=== PATIENT | female | born 1960 | race Caucasian/White ===

== ENCOUNTER 2021-05-04 23:00 | Inpatient (IN) | payer MEDICARE, MEDICAID ==
[2021-05-04] MEDS ORDERED: Sodium Chloride 0.9% 10 ML Syringe FLUSH PRN (23:39)
[2021-05-04 23:46] LABS: CORONAVIRUS COVID-19 NAA NEGATIVE (NEGATIVE)
--- NOTE | 2021-05-04 23:46 | EDM.PDOC ---
ED HPI GENERAL MEDICAL PROBLEM - General Chief Complaint: Respiratory Problem Stated Complaint: [facility] Time Seen by Provider: 05/04/21 23:22 - History of Present Illness INITIAL COMMENTS - FREE TEXT/NARRATIVE: Patient arrived to ED by ambulance She is a limited historian due to altered mental status/confusion EMS reports pulse oximetry 68% on scene Patient reports worsening cough and dyspnea over approximately 3 days States she feels confused Denies chest pain Denies fever, nausea, vomiting Has history of COPD with baseline oxygen use at 4L/min [place] Past history per outpatient record 12/2017 includes: Medical - Anxiety - Arthritis - Asthma - Coronary artery disease - Chronic neck and back pain - Chronic pain of right elbow - COPD - Degenerative cervical spinal stenosis - 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 - Depression - Hypertension - Dyslipidemia - Peripheral edema - Peripheral vascular disease - Bilateral rotator cuff impingement syndrome Surgical - Breast lumpectomy - Elbow surgery - Hysterectomy - Inguinal herniorrhaphy - Neuroplasty with ulnar nerve transposition - Related Data Allergies Allergy/AdvReac Type Severity Reaction Status Date / Time aspirin Allergy Shaking Verified 05/05/21 08:47 erythromycin base Allergy Hives Verified 05/05/21 09:25 Penicillins Allergy Shaking Verified 05/05/21 08:47 Home Meds: Home Meds Hydrocodone/Acetaminophen [HYDROcodone-Acetaminophen 10-325 MG] 1 each PO Q6HR PRN 05/05/21 [History] Rosuvastatin [Crestor] 20 mg PO DAILY 05/05/21 [History] carisoprodoL [Carisoprodol] 350 mg PO BID PRN 05/05/21 [History] Social & Family History - Tobacco Use Tobacco Use Status *Q: Current Every Day Tobacco User Years of Tobacco use: 40 Packs/Tins Daily: 0.2 - Caffeine Use Caffeine Use: Reports: None - Recreational Drug Use Recreational Drug Use: No ED ROS GENERAL - Review of Systems Review Of Systems: See Below Free Text/Narrative/Comment: Limited due to mental status Constitutional - no fever Cardiovascular - no chest pain Respiratory - shortness of breath; cough Gastrointestinal - no abdominal pain; no nausea; no vomiting; no diarrhea Musculoskeletal - no myalgias ED EXAM, GENERAL - Physical Exam Exam: See Below Free Text/Narrative:: Constitutional - awake; alert; appears chronically ill; cachectic; mild respiratory distress Head - no facial swelling or weakness Eyes - extra ocular motion intact; conjunctiva normal; pupils equal and reactive to light ENT - no nasal deformity; no epistaxis; normal phonation; mucus membranes dry; Neck - no swelling Respiratory - mild respiratory effort; mild crackles left anterior and mid to lower posterior zone; moderately diminished breath sounds bilaterally; minimal wheezing; no stridor Cardiovascular - regular rhythm; tachycardia; S1; S2; grade 1/6 systolic murmur GI/Abdomen - normal bowel sounds; soft; no tenderness; no rebound; no guarding; no mass Musculoskeletal - grossly normal strength and motion; no swelling or deformity; severe kyphosis Skin - warm; dry Neurologic - normal speech; no weakness Psychiatric - normal mood and affect; memory limited; attention normal #1 Interpretation EKG Date: 05/05/21 Time: 00:26 Rhythm: NSR Rate (Beats/Min): 112 Coleridge: RAD-Right Coleridge Deviation P-Wave: Present QRS: Other (Poor R wave progression) ST-T: Other (Nonspecific repolarization abnormality) Comparison: NA - No Prior EKG Course - Vital Signs Text/Narrative:: . Considered etiologies included: Dyspnea, cough, bronchitis, COPD, pneumonia, pulmonary embolism, hypoxia, sepsis, hypercarbia, confusion, metabolic derangement, intracranial lesion Symptoms and examination were discussed Investigations were initiated Patient was treated initially with oxygen by mask at 6L/min, until subsequent occurrence of mild hypoxia Therapy was changed to BPAP with noticeable improvement in respiratory effort and overall distress Hypercarbia present on initial ABG had also improved Treatment for pneumonia was provided with ceftriaxone and azithromycin Patient had recurrence of mild to moderate hypoxia on BPAP Trial of Oxymask was ineffective at resolving hypoxia Treatment using NRB mask with NC subsequently yielded oximetry 99-100% Patient remained in ED pending bed availability at morning shift change 0710 Patient was referred to hospitalist service for further care She seen in ED by Dr Veliz for admission Last Recorded V/S: Last Vital Signs Temp 36.6 C 05/06/21 04:00 Pulse 115 H 05/06/21 02:01 Resp 23 H 05/06/21 04:00 BP 104/63 05/06/21 04:00 Pulse Ox 91 L 05/06/21 05:12 - Orders/Labs/Meds Orders: Medication Orders Acetaminophen (Acetaminophen 325 Mg Tab) 650 mg PO Q4H PRN PRN Reason: Pain (Mild 1-3)/fever Albuterol/Ipratropium (Albuterol/Ipratropium 3.0-0.5 Mg/3 Ml Neb Soln) 3 ml NEB Q4HRRT PRN PRN Reason: Wheezing Last Admin: 05/06/21 05:11 Dose: 3 ml Documented by: Admin: 05/05/21 21:56 Dose: 3 ml Documented by: Admin: 05/05/21 17:53 Dose: 3 ml Documented by: Admin: 05/05/21 13:59 Dose: 3 ml Documented by: Admin: 05/05/21 08:31 Dose: 3 ml Documented by: SHIVAM Docusate Sodium (Docusate Sodium 100 Mg Cap) 100 mg PO BID PRN PRN Reason: Constipation Heparin Sodium (Porcine) (Heparin Sodium 5,000 Units/Ml Vial) 5,000 units SUBCUT Q8H [facility] Last Admin: 05/05/21 17:14 Dose: Not Given Documented by: Admin: 05/05/21 12:37 Dose: Not Given Documented by: MARIZOL Ceftriaxone Sodium 1 gm/ (Sodium Chloride) 100 mls @ 200 mls/hr IV Q24H [facility] Last Admin: 05/05/21 21:10 Dose: 200 mls/hr Documented by: ANGIE Sodium Chloride (Normal Saline) 1,000 mls @ 40 mls/hr IV ASDIRECTED [facility] Last Infusion: 05/05/21 17:00 Dose: 40 mls/hr Documented by: Admin: 05/05/21 16:55 Dose: 45 mls/hr Documented by: MARIZOL Lorazepam (Lorazepam 2 Mg/Ml Sdv) 0.5 mg IVPUSH Q4H PRN PRN Reason: Agitation Last Admin: 05/05/21 17:18 Dose: 0.5 mg Documented by: DAVID Methylprednisolone Sodium Succinate (Methylprednisolone Sodium Succinate 125 Mg/2 Ml Sdv) 125 mg IVPUSH Q8H [facility] Last Admin: 05/06/21 00:42 Dose: 125 mg Documented by: Admin: 05/05/21 16:55 Dose: 125 mg Documented by: Admin: 05/05/21 08:29 Dose: 125 mg Documented by: GARRICK Morphine Sulfate (Morphine 2 Mg/Ml Syringe) 2 mg IVPUSH Q2H PRN PRN Reason: Pain (severe 7-10) Stop: 05/06/21 08:48 Last Admin: 05/05/21 21:18 Dose: 2 mg Documented by: ANGIE Nicotine (Nicotine 14 Mg/24 Hr Patch) 14 mg TRDERM DAILY [facility] Last Admin: 05/05/21 12:36 Dose: 14 mg Documented by: MARIZOL Ondansetron HCl (Ondansetron 4 Mg Tab.Dis) 4 mg PO Q4H PRN PRN Reason: nausea, able to take PO Oxycodone HCl (Oxycodone 5 Mg Tab) 5 mg PO Q4H PRN PRN Reason: Pain (moderate 4-6) Sodium Chloride (Sodium Chloride 0.9% 10 Ml Syringe) 10 ml FLUSH ONETIME PRN PRN Reason: Keep Vein Open Last Admin: 05/05/21 09:53 Dose: 10 ml Documented by: TOMI Labs: Laboratory Tests 05/04/21 05/05/21 05/05/21 Range/Units 23:01 00:01 00:01 WBC 14.23 H (3.98-10.04) K/mm3 RBC 4.13 (3.98-5.22) M/mm3 Hgb 12.4 (11.2-15.7) gm/dl Hct 42.5 (34.1-44.9) % MCV 102.9 H (79.4-94.8) fl MCH 30.0 (25.6-32.2) pg MCHC 29.2 L (32.2-35.5) g/dl RDW Std Deviation 48.2 H (36.4-46.3) fL Plt Count 221 (182-369) K/mm3 MPV 9.5 (9.4-12.3) fl Neut % (Auto) 89.3 H (34.0-71.1) % Lymph % (Auto) 3.9 L (19.3-51.7) % Pike % (Auto) 6.2 (4.7-12.5) % Eos % (Auto) 0.1 L (0.7-5.8) Baso % (Auto) 0.1 (0.1-1.2) % Neut # (Auto) 12.72 H (1.56-6.13) K/mm3 Lymph # (Auto) 0.55 L (1.18-3.74) K/mm3 Pike # (Auto) 0.88 H (0.24-0.36) K/mm3 Eos # (Auto) 0.01 L (0.04-0.36) K/mm3 Baso # (Auto) 0.01 (0.01-0.08) K/mm3 Manual Slide Review Abnormal smear Puncture Site ABG pH (7.35-7.45) ABG pCO2 (35.0-45.0) mmHg ABG pO2 (80.0-100.0) mmHg ABG HCO3 (22.0-26.0) meq/L ABG O2 Saturation (96.0-97.0) % ABG Base Excess (-2-2.0) Ricardo Test O2 Delivery Device Oxygen Flow Rate Blood Gas Comments Sodium 143 (136-145) mEq/L Potassium 4.3 (3.5-5.1) mEq/L Chloride 96 L (98-107) mEq/L Carbon Dioxide 44 H* (21-32) mEq/L Anion Gap 7.3 (5-15) BUN 11 (7-18) mg/dL Creatinine 0.3 L (0.55-1.02) mg/dL Est Cr Clr Drug Dosing TNP Estimated GFR (MDRD) > 60 (>60) mL/min BUN/Creatinine Ratio 36.7 H (14-18) Glucose 114 H (70-99) mg/dL Lactic Acid (0.4-2.0) mmol/L Calcium 8.9 (8.5-10.1) mg/dL Total Bilirubin 0.5 (0.2-1.0) mg/dL AST 14 L (15-37) U/L ALT 15 (14-59) U/L Alkaline Phosphatase 75 (46-116) U/L Troponin I < 0.017 (0.00-0.056) ng/mL Total Protein 7.4 (6.4-8.2) g/dl Albumin 2.8 L (3.4-5.0) g/dl Globulin 4.6 gm/dL Albumin/Globulin Ratio 0.6 L (1-2) Influenza Type A RNA Negative (NEGATIVE) Influenza Type B RNA Negative (NEGATIVE) SARS-CoV-2 RNA (ISAI) Negative (NEGATIVE) 05/05/21 05/05/21 05/05/21 Range/Units 00:01 00:17 03:18 WBC (3.98-10.04) K/mm3 RBC (3.98-5.22) M/mm3 Hgb (11.2-15.7) gm/dl Hct (34.1-44.9) % MCV (79.4-94.8) fl MCH (25.6-32.2) pg MCHC (32.2-35.5) g/dl RDW Std Deviation (36.4-46.3) fL Plt Count (182-369) K/mm3 MPV (9.4-12.3) fl Neut % (Auto) (34.0-71.1) % Lymph % (Auto) (19.3-51.7) % Pike % (Auto) (4.7-12.5) % Eos % (Auto) (0.7-5.8) Baso % (Auto) (0.1-1.2) % Neut # (Auto) (1.56-6.13) K/mm3 Lymph # (Auto) (1.18-3.74) K/mm3 Pike # (Auto) (0.24-0.36) K/mm3 Eos # (Auto) (0.04-0.36) K/mm3 Baso # (Auto) (0.01-0.08) K/mm3 Manual Slide Review Puncture Site Lt radial Lt radial ABG pH 7.38 7.41 (7.35-7.45) ABG pCO2 82.7 H* 76.2 H* (35.0-45.0) mmHg ABG pO2 61.0 L 41.0 L (80.0-100.0) mmHg ABG HCO3 48.3 H 46.8 H (22.0-26.0) meq/L ABG O2 Saturation 92.3 L 77.7 L (96.0-97.0) % ABG Base Excess 19.2 H 18.5 H (-2-2.0) Ricardo Test Positive O2 Delivery Device Simple mask Bipap Oxygen Flow Rate 5.0 15.0 Blood Gas Comments 10/5 Sodium (136-145) mEq/L Potassium (3.5-5.1) mEq/L Chloride (98-107) mEq/L Carbon Dioxide (21-32) mEq/L Anion Gap (5-15) BUN (7-18) mg/dL Creatinine (0.55-1.02) mg/dL Est Cr Clr Drug Dosing Estimated GFR (MDRD) (>60) mL/min BUN/Creatinine Ratio (14-18) Glucose (70-99) mg/dL Lactic Acid 1.2 (0.4-2.0) mmol/L Calcium (8.5-10.1) mg/dL Total Bilirubin (0.2-1.0) mg/dL AST (15-37) U/L ALT (14-59) U/L Alkaline Phosphatase (46-116) U/L Troponin I (0.00-0.056) ng/mL Total Protein (6.4-8.2) g/dl Albumin (3.4-5.0) g/dl Globulin gm/dL Albumin/Globulin Ratio (1-2) Influenza Type A RNA (NEGATIVE) Influenza Type B RNA (NEGATIVE) SARS-CoV-2 RNA (ISAI) (NEGATIVE) Meds: Medications Generic Name Dose Route Start Last Admin Trade Name Freq PRN Reason Stop Dose Admin Acetaminophen 650 mg 05/05/21 08:45 Acetaminophen 325 Mg Tab PO Q4H PRN Pain (Mild 1-3)/fever Albuterol/Ipratropium 3 ml 05/05/21 08:16 05/06/21 05:11 Albuterol/Ipratropium 3.0-0.5 Mg/3 Ml Neb Soln NEB 3 ml Q4HRRT PRN Administration Wheezing Docusate Sodium 100 mg 05/05/21 08:45 Docusate Sodium 100 Mg Cap PO BID PRN Constipation Heparin Sodium (Porcine) 5,000 units 05/05/21 08:45 05/05/21 17:14 Heparin Sodium 5,000 Units/Ml Vial SUBCUT Not Given Q8H OBIN[facility] Ceftriaxone Sodium 1 gm/ 100 mls @ 200 mls/hr 05/05/21 21:00 05/05/21 21:10 Sodium Chloride IV 200 mls/hr Q24H OBINNA Administration Sodium Chloride 1,000 mls @ 40 mls/hr 05/05/21 16:30 05/05/21 17:00 Normal Saline IV 40 mls/hr ASDIRECTED [facility] Infusion Lorazepam 0.5 mg 05/05/21 17:10 05/05/21 17:18 Lorazepam 2 Mg/Ml Sdv IVPUSH 0.5 mg Q4H PRN Administration Agitation Methylprednisolone Sodium Succinate 125 mg 05/05/21 08:15 05/06/21 00:42 Methylprednisolone Sodium Succinate 125 Mg/2 Ml Sdv IVPUSH 125 mg Q8H [facility] Administration Morphine Sulfate 2 mg 05/05/21 08:45 05/05/21 21:18 Morphine 2 Mg/Ml Syringe IVPUSH 05/06/21 08:48 2 mg Q2H PRN Administration Pain (severe 7-10) Nicotine 14 mg 05/05/21 09:00 05/05/21 12:36 Nicotine 14 Mg/24 Hr Patch TRDERM 14 mg DAILY [facility] Administration Ondansetron HCl 4 mg 05/05/21 08:45 Ondansetron 4 Mg Tab.Dis PO Q4H PRN nausea, able to take PO Oxycodone HCl 5 mg 05/05/21 08:45 Oxycodone 5 Mg Tab PO Q4H PRN Pain (moderate 4-6) Sodium Chloride 10 ml 05/05/21 08:56 05/05/21 09:53 Sodium Chloride 0.9% 10 Ml Syringe FLUSH 10 ml ONETIME PRN Administration Keep Vein Open Discontinued Medications Generic Name Dose Route Start Last Admin Trade Name Freq PRN Reason Stop Dose Admin Albuterol/Ipratropium 3 ml 05/05/21 03:30 05/05/21 03:44 Albuterol/Ipratropium 3.0-0.5 Mg/3 Ml Neb Soln NEB 05/05/21 03:31 3 ml ONETIME ONE Administration Ceftriaxone Sodium 1 gm/ 100 mls @ 200 mls/hr 05/05/21 01:04 05/05/21 01:10 Sodium Chloride IV 05/05/21 01:33 200 mls/hr ONETIME ONE Administration Azithromycin 500 mg/ Sodium 250 mls @ 250 mls/hr 05/05/21 03:32 05/05/21 03:41 Chloride IV 05/05/21 04:31 250 mls/hr ONETIME ONE Administration Sodium Chloride 1,000 mls @ 150 mls/hr 05/05/21 05:15 05/05/21 05:22 Normal Saline IV 150 mls/hr ASDIRECTED OBINNA Administration Methylprednisolone Sodium 250.56 mls @ 250.56 mls/hr 05/05/21 06:45 05/05/21 07:55 Succinate 70 mg/ Sodium IV 05/05/21 06:46 Not Given Chloride ONETIME ONE Azithromycin 500 mg/ Sodium 250 mls @ 250 mls/hr 05/06/21 21:00 Chloride IV Q24H OBINNA Sodium Chloride 45 mls @ 40 mls/hr 05/05/21 09:00 05/05/21 09:53 Normal Saline IV 40 mls/hr ASDIRECTED OBINNA Administration Ceftriaxone Sodium 1 gm/ 100 mls @ 200 mls/hr 05/05/21 21:00 Sodium Chloride IV Q24H OB[facility]NA Iopamidol 100 ml 05/05/21 08:56 05/05/21 09:53 Iopamidol 755 Mg/Ml 100 Ml Bottle IVPUSH 05/05/21 08:57 100 ml ONETIME ONE Administration Sodium Chloride 10 ml 05/04/21 23:39 05/04/21 23:43 Sodium Chloride 0.9% 10 Ml Syringe FLUSH 10 ml ASDIRECTED PRN Administration Keep Vein Open - Radiology Interpretation Free Text/Narrative:: XR chest, AP portable, interpreted by specification writer: Mild to moderate left pleural effusion, left perihilar and right basilar patchy infiltrate Departure - Departure Time of Disposition: 08:00 Disposition: Admitted As Inpatient 65 Clinical Impression: Acute dyspnea, COPD (chronic obstructive pulmonary disease), Hypoxia, Pleural effusion on left, Hypercarbia - Discharge Information Sepsis Event Note (ED) - Evaluation Sepsis Screening Result: No Definite Risk
[2021-05-05] MEDS ORDERED: cefTRIAXone 1 GM in Sodium Chloride 0.9% 100 ML IV ONE (01:04)
[2021-05-05] MEDS ORDERED: Albuterol/Ipratropium 3.0-0.5 MG/3 ML Neb Soln NEB ONE (03:30)
[2021-05-05] MEDS ORDERED: Azithromycin 500 MG in Sodium Chloride 0.9% 250 ML IV ONE (03:32)
[2021-05-05] MEDS ORDERED: Sodium Chloride 0.9% 1,000 ML IV SCH (05:15)
[2021-05-05] MEDS ORDERED: METHYLPREDNISOLONE SOD SUCC IV ONE (06:45)
[2021-05-05] MEDS ORDERED: SODIUM CHLORIDE 0.9% IV ONE (06:45)
--- NOTE | 2021-05-05 08:01 | CR ---
Chest: Portable view of the chest was obtained. Comparison: Prior chest x-ray of 10/26/11. Left-sided pleural effusion is seen. Parenchymal density also noted within the left base. Mild interstitial change is seen within the right lung base. Heart size does not appear to be definitely enlarged. Upper mediastinum is normal. Bony structures show nothing acute. Impression: 1. Small left-sided pleural effusion with increased parenchymal density within the left lung base. Please correlate if patient has any infectious symptoms. Findings could otherwise represent asymmetric pulmonary vascular congestion. 2. Mild interstitial change within the right lung base with similar differential. Diagnostic code #3
[2021-05-05] MEDS: methylPREDNISolone Sodium Succinate 125 MG/2 ML SDV IVPUSH SCH ×2 (08:29→16:55)
[2021-05-05] MEDS: Albuterol/Ipratropium 3.0-0.5 MG/3 ML Neb Soln NEB PRN ×4 (08:31→21:56)
[2021-05-05] MEDS ORDERED: Morphine 2 MG/ML SYRINGE IVPUSH PRN (08:45)
[2021-05-05] MEDS ORDERED: oxyCODONE 5 MG Tab PO PRN (08:45)
[2021-05-05] MEDS ORDERED: Ondansetron 4 MG Tab.DIS PO PRN (08:45)
[2021-05-05] MEDS ORDERED: Acetaminophen 325 MG Tab PO PRN (08:45)
[2021-05-05] MEDS ORDERED: Docusate Sodium 100 MG Cap PO PRN (08:45)
--- NOTE | 2021-05-05 08:54 | PCM.HP.2 ---
H&P History of Present Illness - General Date of Service: 05/05/21 Admit Problem/Dx: Admission Diagnosis/Problem Admission Diagnosis/Problem COPD, Severe chronic obstructive pulmonary disease Source of Information: Patient, Old Records History Limitations: Reports: No Limitations - History of Present Illness Initial Comments - Free Text/Narative: The patient is a 61-year-old lady who had presented to the emergency department with confusion and according to the patient inability to move. The patient was evaluated in the ER yesterday at 2300. The patient had been retained in the emergency department due to bed availability both here and [facility]. The patient was found to be severely hypoxic and had been placed on BiPAP. The patient herself had denied any increasing shortness of breath although once her oxygen levels had been stabilized her confusion had abated somewhat. The patient does have a history of recent tobacco use along with severe COPD. The patient also has been taking medication for pain. The patient has a history of chronic neck and back pain as well as pain in her hips and knees. She has been taking narcotic pain medications. The patient has denied any fever or chills. She has had no cough. The patient does have some shortness of breath associated with hypoxia. Chest x-ray obtained through the emergency department shows that she has in addition to severe COPD small left-sided pleural effusion. The patient also has had no specific aggravating or relieving factors. The patient has not been hospitalized in the past for this. She is currently using oxygen at home at 4 L/min. Onset of Symptoms: Reports: Unknown/Unsure Duration of Symptoms: Reports: Chronic, Getting Worse Location: Reports: Generalized Quality: Reports: Ache, Stabbing Severity: Moderate Improves with: Reports: Medication, Rest Worsens with: Reports: Movement Associated Symptoms: Reports: Confusion - Related Data Allergies/Adverse Reactions: Allergies Allergy/AdvReac Type Severity Reaction Status Date / Time aspirin Allergy Shaking Verified 05/05/21 08:47 erythromycin base Allergy Hives Verified 05/05/21 09:25 Penicillins Allergy Shaking Verified 05/05/21 08:47 Home Medications: Home Meds Hydrocodone/Acetaminophen [HYDROcodone-Acetaminophen 10-325 MG] 1 each PO Q6HR PRN 05/05/21 [History] Rosuvastatin [Crestor] 20 mg PO DAILY 05/05/21 [History] carisoprodoL [Carisoprodol] 350 mg PO BID PRN 05/05/21 [History] Past Medical History HEENT History: Reports: None Cardiovascular History: Reports: Hypertension Respiratory History: Reports: COPD Gastrointestinal History: Reports: None Genitourinary History: Reports: None Musculoskeletal History: Reports: Arthritis, Back Pain, Chronic, Neck Pain, Chronic Neurological History: Reports: Neuropathy, Peripheral Psychiatric History: Reports: None Endocrine/Metabolic History: Reports: None Hematologic History: Reports: None Immunologic History: Reports: None Oncologic (Cancer) History: Reports: Breast Dermatologic History: Reports: None - Infectious Disease History Infectious Disease History: Reports: None Social & Family History - Tobacco Use Tobacco Use Status *Q: Current Every Day Tobacco User Years of Tobacco use: 40 Packs/Tins Daily: 0.2 - Caffeine Use Caffeine Use: Reports: None - Recreational Drug Use Recreational Drug Use: No - Living Situation & Occupation Living situation: Reports: , with Spouse, with Family Occupation: Other H&P Review of Systems - Review of Systems: Review Of Systems: See Below General: Reports: Malaise, Weakness, Weight Loss HEENT: Reports: No Symptoms Pulmonary: Reports: Shortness of Breath, Wheezing. Denies: Sputum, Hemoptysis Cardiovascular: Reports: No Symptoms Gastrointestinal: Reports: No Symptoms Genitourinary: Reports: No Symptoms Musculoskeletal: Reports: Neck Pain, Back Pain Skin: Reports: No Symptoms Psychiatric: Reports: No Symptoms Neurological: Reports: Confusion Hematologic/Lymphatic: Reports: No Symptoms Immunologic: Reports: No Symptoms Exam - Exam Exam: See Below - Vital Signs Vital Signs: Last Vital Signs Temp 37.0 C 05/04/21 23:03 Pulse 112 H 05/04/21 23:03 Resp 24 H 05/04/21 23:03 BP 125/73 05/04/21 23:03 Pulse Ox 94 L 05/05/21 08:37 Weight: 36.287 kg - Exam Quality Assessment: Supplemental Oxygen, DVT Prophylaxis General: Alert, Oriented, Cooperative, Moderate Distress, Other (Cachectic, appears older than stated age.) HEENT: Conjunctiva Clear, EACs Clear, Hearing Intact, PERRLA. No: Mucosa Moist & [place] (Dry, poor oral hygiene) Neck: Supple, Trachea Midline Lungs: Decreased Breath Sounds, Crackles (Scattered), Other (Hyperexpanded, decreased breath sounds left lower lobe, stiff thoracic cage) Cardiovascular: Regular Rate, Regular Rhythm GI/Abdominal Exam: Normal Bowel Sounds, Soft, No Distention (Female) Exam: Deferred Rectal (Female) Exam: Deferred Back Exam: Full Range of Motion. No: Normal Inspection (Kyphosis) Extremities: Normal Inspection, Normal Range of Motion, No Pedal Edema Skin: Warm, Dry, Intact Neurological: Cranial Nerves Intact, Normal Speech, Normal Tone Psychiatric: Alert, Normal Affect, Anxious - Patient Data Lab Results Last 24 hrs: Laboratory Results - last 24 hr 05/04/21 05/05/21 05/05/21 Range/Units 23:01 00:01 00:01 WBC 14.23 H (3.98-10.04) K/mm3 RBC 4.13 (3.98-5.22) M/mm3 Hgb 12.4 (11.2-15.7) gm/dl Hct 42.5 (34.1-44.9) % MCV 102.9 H (79.4-94.8) fl MCH 30.0 (25.6-32.2) pg MCHC 29.2 L (32.2-35.5) g/dl RDW Std Deviation 48.2 H (36.4-46.3) fL Plt Count 221 (182-369) K/mm3 MPV 9.5 (9.4-12.3) fl Neut % (Auto) 89.3 H (34.0-71.1) % Lymph % (Auto) 3.9 L (19.3-51.7) % [place] % (Auto) 6.2 (4.7-12.5) % Eos % (Auto) 0.1 L (0.7-5.8) Baso % (Auto) 0.1 (0.1-1.2) % Neut # (Auto) 12.72 H (1.56-6.13) K/mm3 Lymph # (Auto) 0.55 L (1.18-3.74) K/mm3 [place] # (Auto) 0.88 H (0.24-0.36) K/mm3 Eos # (Auto) 0.01 L (0.04-0.36) K/mm3 Baso # (Auto) 0.01 (0.01-0.08) K/mm3 Manual Slide Review Abnormal smear Puncture Site ABG pH (7.35-7.45) ABG pCO2 (35.0-45.0) mmHg ABG pO2 (80.0-100.0) mmHg ABG HCO3 (22.0-26.0) meq/L ABG O2 Saturation (96.0-97.0) % ABG Base Excess (-2-2.0) Ricardo Test O2 Delivery Device Oxygen Flow Rate Blood Gas Comments Sodium 143 (136-145) mEq/L Potassium 4.3 (3.5-5.1) mEq/L Chloride 96 L (98-107) mEq/L Carbon Dioxide 44 H* (21-32) mEq/L Anion Gap 7.3 (5-15) BUN 11 (7-18) mg/dL Creatinine 0.3 L (0.55-1.02) mg/dL Est Cr Clr Drug Dosing TNP Estimated GFR (MDRD) > 60 (>60) mL/min BUN/Creatinine Ratio 36.7 H (14-18) Glucose 114 H (70-99) mg/dL Lactic Acid (0.4-2.0) mmol/L Calcium 8.9 (8.5-10.1) mg/dL Total Bilirubin 0.5 (0.2-1.0) mg/dL AST 14 L (15-37) U/L ALT 15 (14-59) U/L Alkaline Phosphatase 75 (46-116) U/L Troponin I < 0.017 (0.00-0.056) ng/mL Total Protein 7.4 (6.4-8.2) g/dl Albumin 2.8 L (3.4-5.0) g/dl Globulin 4.6 gm/dL Albumin/Globulin Ratio 0.6 L (1-2) Influenza Type A RNA Negative (NEGATIVE) Influenza Type B RNA Negative (NEGATIVE) SARS-CoV-2 RNA (ISAI) Negative (NEGATIVE) 05/05/21 05/05/21 05/05/21 Range/Units 00:01 00:17 03:18 WBC (3.98-10.04) K/mm3 RBC (3.98-5.22) M/mm3 Hgb (11.2-15.7) gm/dl Hct (34.1-44.9) % MCV (79.4-94.8) fl MCH (25.6-32.2) pg MCHC (32.2-35.5) g/dl RDW Std Deviation (36.4-46.3) fL Plt Count (182-369) K/mm3 MPV (9.4-12.3) fl Neut % (Auto) (34.0-71.1) % Lymph % (Auto) (19.3-51.7) % [place] % (Auto) (4.7-12.5) % Eos % (Auto) (0.7-5.8) Baso % (Auto) (0.1-1.2) % Neut # (Auto) (1.56-6.13) K/mm3 Lymph # (Auto) (1.18-3.74) K/mm3 [place] # (Auto) (0.24-0.36) K/mm3 Eos # (Auto) (0.04-0.36) K/mm3 Baso # (Auto) (0.01-0.08) K/mm3 Manual Slide Review Puncture Site Lt radial Lt radial ABG pH 7.38 7.41 (7.35-7.45) ABG pCO2 82.7 H* 76.2 H* (35.0-45.0) mmHg ABG pO2 61.0 L 41.0 L (80.0-100.0) mmHg ABG HCO3 48.3 H 46.8 H (22.0-26.0) meq/L ABG O2 Saturation 92.3 L 77.7 L (96.0-97.0) % ABG Base Excess 19.2 H 18.5 H (-2-2.0) Ricardo Test Positive O2 Delivery Device Simple mask Bipap Oxygen Flow Rate 5.0 15.0 Blood Gas Comments 10/5 Sodium (136-145) mEq/L Potassium (3.5-5.1) mEq/L Chloride (98-107) mEq/L Carbon Dioxide (21-32) mEq/L Anion Gap (5-15) BUN (7-18) mg/dL Creatinine (0.55-1.02) mg/dL Est Cr Clr Drug Dosing Estimated GFR (MDRD) (>60) mL/min BUN/Creatinine Ratio (14-18) Glucose (70-99) mg/dL Lactic Acid 1.2 (0.4-2.0) mmol/L Calcium (8.5-10.1) mg/dL Total Bilirubin (0.2-1.0) mg/dL AST (15-37) U/L ALT (14-59) U/L Alkaline Phosphatase (46-116) U/L Troponin I (0.00-0.056) ng/mL Total Protein (6.4-8.2) g/dl Albumin (3.4-5.0) g/dl Globulin gm/dL Albumin/Globulin Ratio (1-2) Influenza Type A RNA (NEGATIVE) Influenza Type B RNA (NEGATIVE) SARS-CoV-2 RNA (ISAI) (NEGATIVE) Result Diagrams: 05/05/21 00:01 05/05/21 00:01 Sepsis Event Note - Evaluation Sepsis Screening Result: No Definite Risk - Focused Exam Vital Signs: Vital Signs Temp Pulse Resp BP Pulse Ox Pulse Ox 05/05/21 08:37 94 L 05/05/21 08:17 91 L 05/04/21 23:03 37.0 C 112 H 24 H 125/73 91 L *Q Meaningful Use (ADM) - VTE *Q VTE Mechanical Contraindications *Q: At Risk for Falls - Problem List (1) Acute and chronic respiratory failure SNOMED Code(s): 80948900 ICD Code: J96.20 - ACUTE AND CHR RESP FAILURE, UNSP W HYPOXIA OR HYPERCAPNIA Status: Acute Priority: High Current Visit: Yes Qualifiers: Respiratory failure complication: hypoxia and hypercapnia Qualified Code(s): J96.21 - Acute and chronic respiratory failure with hypoxia; J96.22 - Acute and chronic respiratory failure with hypercapnia (2) COPD with exacerbation SNOMED Code(s): 038514609 ICD Code: J44.1 - CHRONIC OBSTRUCTIVE PULMONARY DISEASE W (ACUTE) EXACERBATION Status: Chronic Priority: High Current Visit: Yes (3) Hypercapnia SNOMED Code(s): 68767288 ICD Code: R06.89 - OTHER ABNORMALITIES OF BREATHING Status: Chronic Priority: High Current Visit: Yes (4) Hypoxemia SNOMED Code(s): 995096324 ICD Code: R09.02 - HYPOXEMIA Status: Chronic Priority: High Current Visit: Yes (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 SNOMED Code(s): 010139445 ICD Code: J44.9 - CHRONIC OBSTRUCTIVE PULMONARY DISEASE, UNSPECIFIED; R64 - CACHEXIA Status: Chronic Priority: High Current Visit: Yes (6) Severe protein-calorie malnutrition SNOMED Code(s): 982422923, 304196905, 481389177 ICD Code: E43 - UNSPECIFIED SEVERE PROTEIN-CALORIE MALNUTRITION Status: Chronic Priority: High Current Visit: Yes (7) Tobacco dependence SNOMED Code(s): 50939806 ICD Code: F17.200 - NICOTINE DEPENDENCE, UNSPECIFIED, UNCOMPLICATED Status: Chronic Priority: High Current Visit: Yes Problem List Initiated/Reviewed/Updated: Yes Orders Last 24hrs: Active Orders 24 hr Category Date Time Status Admission Status [Patient Status] [ADT] Routine ADT 05/05/21 08:15 Active Cardiac Monitoring [RC] CONTINUOUS Care 05/05/21 08:46 Ordered Notify Provider Consults [RC] ASDIRECTED Care 05/05/21 08:51 Ordered Oxygen Therapy [RC] PRN Care 05/05/21 08:45 Ordered Peripheral IV Care [RC] . DIRECTED Care 05/04/21 23:40 Active Pulse Oximetry [RC] CONTINUOUS Care 05/05/21 08:46 Ordered RT Aerosol Therapy [RC] ASDIRECTED Care 05/05/21 03:30 Active RT Aerosol Therapy [RC] ASDIRECTED Care 05/05/21 08:17 Active RT BiPAP/CPAP [RC] ASDIRECTED Care 05/05/21 01:09 Active Up With Assistance [RC] ASDIRECTED Care 05/05/21 08:45 Ordered VTE/DVT Education [RC] PER UNIT ROUTINE Care 05/05/21 08:45 Ordered Vital Signs [RC] Q4H Care 05/05/21 08:45 Ordered Consult to Agriculture Professor [CONS] Routine Cons 05/05/21 08:45 Ordered Consult to Physician [CONS] Routine Cons 05/05/21 08:45 Ordered OT Evaluation and Treatment [CONS] Routine Cons 05/05/21 08:45 Ordered PT Evaluation and Treatment [CONS] Routine Cons 05/05/21 08:45 Ordered Regular Diet [DIET] Diet 05/05/21 Lunch Ordered Ang Chest [CT] Routine Exams 05/05/21 08:45 Ordered Chest 1V Frontal [CR] Stat Exams 05/04/21 23:39 Taken BLOOD CULTURE [MREF] Stat Lab 05/04/21 23:40 Received BLOOD CULTURE [MREF] Stat Lab 05/04/21 23:40 Received CBC WITH AUTO DIFF [HEME] AM Lab 05/06/21 05:11 Ordered COMPREHENSIVE METABOLIC PN,CMP [CHEM] AM Lab 05/06/21 05:11 Ordered MAGNESIUM [CHEM] AM Lab 05/06/21 05:11 Ordered PHOSPHORUS [CHEM] AM Lab 05/06/21 05:11 Ordered Acetaminophen [TylenoL] Med 05/05/21 08:45 Ordered 650 mg PO Q4H PRN Albuterol/Ipratropium [DuoNeb 3.0-0.5 MG/3 ML] Med 05/05/21 08:16 Active 3 ml NEB Q4HRRT PRN Azithromycin [Zithromax] 500 mg Med 05/06/21 08:45 Ordered Sodium Chloride 0.9% [Normal Saline (AdvBag)] 250 ml IV Q24H Docusate Sodium [Colace] Med 05/05/21 08:45 Ordered 100 mg PO BID PRN Heparin Sodium Med 05/05/21 08:45 Ordered 5,000 units SUBCUT Q8H Morphine Med 05/05/21 08:45 Ordered 2 mg IVPUSH Q2H PRN Nicotine [Habitrol] Med 05/05/21 09:00 Ordered 14 mg TRDERM DAILY Ondansetron [Zofran ODT] Med 05/05/21 08:45 Ordered 4 mg PO Q4H PRN Sodium Chloride 0.9% [Normal Saline] 1,000 ml Med 05/05/21 05:15 Active IV ASDIRECTED Sodium Chloride 0.9% [Saline Flush] Med 05/04/21 23:39 Active 10 ml FLUSH ASDIRECTED PRN methylPREDNISolone Sod Succ [Solu-MEDROL] Med 05/05/21 08:15 Active 125 mg IVPUSH Q8H oxyCODONE Med 05/05/21 08:45 Ordered 5 mg PO Q4H PRN Blood Culture x2 Reflex Set [OM.PC] Stat Oth 05/04/21 23:38 Ordered Peripheral IV Insertion Adult [OM.PC] Stat Oth 05/04/21 23:39 Ordered VTE Mechanical Contraindications [AST] Per Unit Routine Oth 05/05/21 08:45 Ordered Resuscitation Status Routine Resus Stat 05/05/21 08:45 Ordered EKG 12 Lead [EK] Stat Ther 05/04/21 23:38 Ordered Medication Orders Albuterol/Ipratropium (Albuterol/Ipratropium 3.0-0.5 Mg/3 Ml Neb Soln) 3 ml NEB Q4HRRT PRN PRN Reason: Wheezing Last Admin: 05/05/21 08:31 Dose: 3 ml Documented by: [email or web address] Sodium Chloride (Normal Saline) 1,000 mls @ 150 mls/hr IV ASDIRECTED OBINNA Last Admin: 05/05/21 05:22 Dose: 150 mls/hr Documented by: [facility] Methylprednisolone Sodium Succinate (Methylprednisolone Sodium Succinate 125 Mg/2 Ml Sdv) 125 mg IVPUSH Q8H COUNT INCLUDES THE [facility] Last Admin: 05/05/21 08:29 Dose: 125 mg Documented by: [id number] Sodium Chloride (Sodium Chloride 0.9% 10 Ml Syringe) 10 ml FLUSH ASDIRECTED PRN PRN Reason: Keep Vein Open Last Admin: 05/04/21 23:43 Dose: 10 ml Documented by: [facility] Assessment/Plan Comment:: The patient is a 61-year-old lady who has been admitted to the intensive care unit as an inpatient with acute on chronic hypoxic respiratory failure. The patient does have a history of COPD and she will be treated for exacerbation with Rocephin 1 g IV every 24 hours along with Solu-Medrol 120 mg every 8 hours. The patient also will be placed on BiPAP as necessary and oxygen support to help keep her saturations around 92%. Because of the patient's pulmonary cachexia I have ordered a dietary consult as she is also severely protein malnourished. The patient's recorded weight is 36.2 kg. The patient will have DVT prophylaxis with the use of heparin 5000 units subcu every 8 hours. I have also ordered the patient to have a regular diet as tolerated. She will be kept on telemetry and continuous pulse oximetry. I have also ordered a nicotine patch 14 mg daily for the patient. I have advised the patient of my concern with regards to intubation and that if this happened likely she would be transferred to tertiary care center. For now we will continue with DuoNeb treatments every 4 hours as needed for shortness of breath or wheezing every 4 hours as per RT or as needed. I had discussed the case with surgeon on-call who feels that the pleural effusion may not be appropriate to aspirate here. The patient will likely need to have this aspirated at some point in time. I have also ordered a CT scan to help exclude malignancy associated effusion. Overall the patient's prognosis is poor. She is in a full resuscitation code. She should be appropriate for discharge after improvement of her symptoms and antibiotic treatment in 4 to 5 days. - Mortality Measure Prognosis:: Poor
[2021-05-05] MEDS ORDERED: Iopamidol 755 Mg/ML 100 ML Bottle IVPUSH ONE (08:56)
[2021-05-05] MEDS ORDERED: Sodium Chloride 0.9% 10 ML Syringe FLUSH PRN (08:56)
[2021-05-05] MEDS ORDERED: Sodium Chloride 0.9% 45 ML IV SCH (09:00)
--- NOTE | 2021-05-05 11:50 | PCM.PRNOTE ---
- Free Text/Narrative Note: Date: 05/05/2021 Procedure: left thoracentesis Indication: COPD exacerbation with grade II left pleural effusion Surgeon: Brad Tovar MD Report: Written consent was signed. The patient was seated and leaning forward. The left posterior chest wall was prepped and draped in sterile fashion. 1% lidocaine, 10 cc, was used to anesthetize skin overlying the 10th rib space lateral to the paraspinous musculature. The needle was slowly passed into the peural space with negative pressure on the syringe. Air was immediately aspirated on entry, raising concern for pneumothorax. A small stab incision was made and a Safe-T pigtail thoracentesis catheter was advanced into the pleural space. A syringe was used to aspirate air and eventually thin straw-colored pleural fluid. Samples were collected to be sent for analysis. The catheter was then secured at the skin with silk suture and dressed with gauze and tegaderm. The catheter was connected to a large drainage bag and a few hundred cc of pleural fluid was drained. The patient's SpO2 remained steady at 88-90% on CPAP throughout the procedure. A follow up chest x-ray was ordered.
[2021-05-05] MEDS: Nicotine 14 MG/24 Hr Patch TRDERM SCH (12:36)
[2021-05-05] MEDS: Heparin Sodium 5,000 Units/ML Vial SUBCUT SCH ×2 (12:37→17:14)
--- NOTE | 2021-05-05 13:53 | CT ---
CT chest Technique: Multiple axial sections were obtained from above the lung apices inferiorly through the lung bases. Intravenous contrast was utilized as a pulmonary angiogram protocol. Comparison: No prior chest CT is available, prior chest x-ray performed on the same day at time 12:13 PM and 03:40 AM. Findings: Small left-sided pleural effusion is seen. Minimal right-sided pleural effusion is also noted. Pulmonary arteries are well opacified. No filling defects are seen to indicate pulmonary embolism. Atherosclerotic change is noted within the thoracic aorta with no aneurysm. Mediastinum shows no adenopathy. No pericardial thickening is seen. Visualized upper abdominal structures show nothing acute. Diffuse consolidation is noted within the left lower lung. Severe emphysematous change is noted. Mild interstitial change is noted within the left upper lung most likely representing fibrosis. Slight consolidation is seen within the posterior right lower lobe. Bone window settings were reviewed which show diffuse degenerative change within the spine with disc space narrowing and endplate spurring. No acute osseous abnormality is appreciated. Impression: 1. No findings of pulmonary embolism. 2. Extensive consolidation within the left lung base and lesser change within the posterior right lung base. These findings are suspicious for pneumonia. 3. Diffuse emphysematous change. 4. Small left-sided pleural effusion and minimal right-sided pleural effusion. 5. No definite finding is seen on this exam to indicate definite neoplasm. Diagnostic code #3 I agree with preliminary report from [facility], finalized on 05/05/21, 11:15 AM CDT, code 1
--- NOTE | 2021-05-05 13:54 | CR ---
Chest: Portable view of the chest was obtained. Comparison: Prior chest x-ray performed earlier on the same date (03:40 AM). Left-sided pleural effusion has been evacuated. Left-sided pneumothorax is mostly seen within the left base. Consolidation is seen within the left lung base. Diffuse interstitial change is noted which is increased from prior chest CT. Emphysematous change is present. Heart is slightly enlarged. No gross bony abnormality is seen. Impression: 1. Left-sided pleural effusion has been removed. This has been replaced by a pneumothorax. 2. Increased interstitial change is noted from previous chest x-ray raising the possibility of possible pulmonary vascular congestion. 3. Consolidation within the left lung base, presumably representing diffuse pneumonia. Diagnostic code #3 I agree with preliminary report from [facility], finalized on 05/05/21, 1:44 PM Central Daylight Time
[2021-05-05] MEDS: Sodium Chloride 0.9% 1,000 ML IV SCH (16:55)
[2021-05-05] MEDS ORDERED: LORazepam 2 MG/ML SDV IVPUSH PRN (17:10)
[2021-05-05] MEDS ORDERED: cefTRIAXone 1 GM in Sodium Chloride 0.9% 100 ML IV SCH (21:00)
[2021-05-05] MEDS: cefTRIAXone 1 GM in Sodium Chloride 0.9% 100 ML IV SCH (21:10)
[2021-05-06] MEDS: methylPREDNISolone Sodium Succinate 125 MG/2 ML SDV IVPUSH SCH ×3 (00:42→17:10)
[2021-05-06] MEDS: Albuterol/Ipratropium 3.0-0.5 MG/3 ML Neb Soln NEB PRN ×4 (05:11→21:36)
--- NOTE | 2021-05-06 07:15 | PCM.PN ---
- General Info Date of Service: 05/06/21 Admission Dx/Problem (Free Text): Admission Diagnosis/Problem Admission Diagnosis/Problem COPD, Severe chronic obstructive pulmonary disease Subjective Update: The patient is a critically ill 61-year-old lady who was admitted to the intensive care unit yesterday. The patient was admitted primarily out of concern for severe COPD exacerbation with acute on chronic respiratory failure. The patient had been placed on BiPAP in order to maintain her saturations. The patient today says that she feels somewhat better. The patient also yesterday had a left-sided pleural effusion drained with studies currently pending. Further, the patient had pneumothorax. She has denied any new pain. She has been tolerating the diet while off oxygen briefly. Functional Status: Reports: Pain Controlled, Tolerating Diet - Review of Systems General: Reports: Weakness, Fatigue HEENT: Reports: No Symptoms Pulmonary: Reports: Shortness of Breath Cardiovascular: Reports: No Symptoms Gastrointestinal: Reports: No Symptoms Genitourinary: Reports: No Symptoms Musculoskeletal: Reports: No Symptoms Skin: Reports: No Symptoms Neurological: Reports: No Symptoms Psychiatric: Reports: No Symptoms - Patient Data Vitals - Most Recent: Last Vital Signs Temp 36.6 C 05/06/21 04:00 Pulse 110 H 05/06/21 07:00 Resp 30 H 05/06/21 07:00 BP 102/71 05/06/21 06:00 Pulse Ox 93 L 05/06/21 07:00 Weight - Most Recent: 40.37 kg I&O - Last 24 Hours: Intake & Output 05/05/21 05/06/21 05/06/21 22:59 06:59 14:59 Intake Total 100 777 Output Total 430 100 Balance -330 677 Lab Results Last 24 Hours: Laboratory Results - last 24 hr 05/05/21 05/06/21 05/06/21 Range/Units 11:50 05:10 05:10 WBC 8.16 (3.98-10.04) K/mm3 RBC 3.87 L (3.98-5.22) M/mm3 Hgb 11.4 (11.2-15.7) gm/dl Hct 37.8 (34.1-44.9) % MCV 97.7 H D (79.4-94.8) fl MCH 29.5 (25.6-32.2) pg MCHC 30.2 L (32.2-35.5) g/dl RDW Std Deviation 45.9 (36.4-46.3) fL Plt Count 232 (182-369) K/mm3 MPV 10.3 (9.4-12.3) fl Neut % (Auto) 92.6 H (34.0-71.1) % Lymph % (Auto) 5.0 L (19.3-51.7) % Gage % (Auto) 2.3 L (4.7-12.5) % Eos % (Auto) 0 L (0.7-5.8) Baso % (Auto) 0.0 L (0.1-1.2) % Neut # (Auto) 7.55 H (1.56-6.13) K/mm3 Lymph # (Auto) 0.41 L (1.18-3.74) K/mm3 Gage # (Auto) 0.19 L (0.24-0.36) K/mm3 Eos # (Auto) 0.00 L (0.04-0.36) K/mm3 Baso # (Auto) 0.00 L (0.01-0.08) K/mm3 Manual Slide Review Abnormal smear Sodium 142 (136-145) mEq/L Potassium 5.2 H (3.5-5.1) mEq/L Chloride 101 (98-107) mEq/L Carbon Dioxide 39 H (21-32) mEq/L Anion Gap 7.2 (5-15) BUN 12 (7-18) mg/dL Creatinine 0.2 L (0.55-1.02) mg/dL Est Cr Clr Drug Dosing 185.87 mL/min Estimated GFR (MDRD) > 60 (>60) mL/min BUN/Creatinine Ratio 60.0 H (14-18) Glucose 137 H (70-99) mg/dL Calcium 8.1 L (8.5-10.1) mg/dL Phosphorus 3.3 (2.6-4.7) mg/dL Magnesium 1.9 (1.8-2.4) mg/dL Total Bilirubin 0.4 (0.2-1.0) mg/dL AST 29 (15-37) U/L ALT 18 (14-59) U/L Alkaline Phosphatase 99 (46-116) U/L Total Protein 6.7 (6.4-8.2) g/dl Albumin 2.3 L (3.4-5.0) g/dl Globulin 4.4 gm/dL Albumin/Globulin Ratio 0.5 L (1-2) Body Fluid Site Left lung Fluid Type Pleural fluid Fluid Volume 25 ML Fluid Color Yellow Fluid Appearance Cloudy Fluid WBC 0.53 (0.20-0.60) k/mm*3 Fluid RBC (0.00-0.010) 10*6/uL Fluid Diff Comment Not Reportable Fluid Seg Neutrophils 59.0 H (0-25) % Fluid Lymphocytes 22.0 (0-78) % Fluid Monocytes 8.0 (0-71) % Fl Polymorphonucl Cell Not Reportable Fluid Macrophages 11 Fluid Glucose 104 mg/dL Fluid Total Protein 3.6 gm/dl Fluid LDH 117 U/L Med Orders - Current: Current Medications Acetaminophen (Acetaminophen 325 Mg Tab) 650 mg PO Q4H PRN PRN Reason: Pain (Mild 1-3)/fever Albuterol/Ipratropium (Albuterol/Ipratropium 3.0-0.5 Mg/3 Ml Neb Soln) 3 ml NEB Q4HRRT PRN PRN Reason: Wheezing Last Admin: 05/06/21 05:11 Dose: 3 ml Documented by: Docusate Sodium (Docusate Sodium 100 Mg Cap) 100 mg PO BID PRN PRN Reason: Constipation Heparin Sodium (Porcine) (Heparin Sodium 5,000 Units/Ml Vial) 5,000 units SUBCUT Q8H [facility] Last Admin: 05/05/21 17:14 Dose: Not Given Documented by: Ceftriaxone Sodium 1 gm/ (Sodium Chloride) 100 mls @ 200 mls/hr IV Q24H [facility] Last Admin: 05/05/21 21:10 Dose: 200 mls/hr Documented by: Sodium Chloride (Normal Saline) 1,000 mls @ 40 mls/hr IV ASDIRECTED [facility] Last Infusion: 05/05/21 17:00 Dose: 40 mls/hr Documented by: Lorazepam (Lorazepam 2 Mg/Ml Sdv) 0.5 mg IVPUSH Q4H PRN PRN Reason: Agitation Last Admin: 05/05/21 17:18 Dose: 0.5 mg Documented by: Methylprednisolone Sodium Succinate (Methylprednisolone Sodium Succinate 125 Mg/2 Ml Sdv) 125 mg IVPUSH Q8H [facility] Last Admin: 05/06/21 00:42 Dose: 125 mg Documented by: Morphine Sulfate (Morphine 2 Mg/Ml Syringe) 2 mg IVPUSH Q2H PRN PRN Reason: Pain (severe 7-10) Stop: 05/06/21 08:48 Last Admin: 05/05/21 21:18 Dose: 2 mg Documented by: Nicotine (Nicotine 14 Mg/24 Hr Patch) 14 mg TRDERM DAILY [facility] Last Admin: 05/05/21 12:36 Dose: 14 mg Documented by: Ondansetron HCl (Ondansetron 4 Mg Tab.Dis) 4 mg PO Q4H PRN PRN Reason: nausea, able to take PO Oxycodone HCl (Oxycodone 5 Mg Tab) 5 mg PO Q4H PRN PRN Reason: Pain (moderate 4-6) Sodium Chloride (Sodium Chloride 0.9% 10 Ml Syringe) 10 ml FLUSH ONETIME PRN PRN Reason: Keep Vein Open Last Admin: 05/05/21 09:53 Dose: 10 ml Documented by: Discontinued Medications Albuterol/Ipratropium (Albuterol/Ipratropium 3.0-0.5 Mg/3 Ml Neb Soln) 3 ml NEB ONETIME ONE Stop: 05/05/21 03:31 Last Admin: 05/05/21 03:44 Dose: 3 ml Documented by: Ceftriaxone Sodium 1 gm/ (Sodium Chloride) 100 mls @ 200 mls/hr IV ONETIME ONE Stop: 05/05/21 01:33 Last Admin: 05/05/21 01:10 Dose: 200 mls/hr Documented by: Azithromycin 500 mg/ Sodium (Chloride) 250 mls @ 250 mls/hr IV ONETIME ONE Stop: 05/05/21 04:31 Last Admin: 05/05/21 03:41 Dose: 250 mls/hr Documented by: Sodium Chloride (Normal Saline) 1,000 mls @ 150 mls/hr IV ASDIRECTED [facility] Last Admin: 05/05/21 05:22 Dose: 150 mls/hr Documented by: Methylprednisolone Sodium Succinate 70 mg/ Sodium Chloride 250.56 mls @ 250.56 mls/hr IV ONETIME ONE Stop: 05/05/21 06:46 Last Admin: 05/05/21 07:55 Dose: Not Given Documented by: Azithromycin 500 mg/ Sodium (Chloride) 250 mls @ 250 mls/hr IV Q24H [facility] Sodium Chloride (Normal Saline) 45 mls @ 40 mls/hr IV ASDIRECTED [facility] Last Admin: 05/05/21 09:53 Dose: 40 mls/hr Documented by: Ceftriaxone Sodium 1 gm/ (Sodium Chloride) 100 mls @ 200 mls/hr IV Q24H [facility] Iopamidol (Iopamidol 755 Mg/Ml 100 Ml Bottle) 100 ml IVPUSH ONETIME ONE Stop: 05/05/21 08:57 Last Admin: 05/05/21 09:53 Dose: 100 ml Documented by: Sodium Chloride (Sodium Chloride 0.9% 10 Ml Syringe) 10 ml FLUSH ASDIRECTED PRN PRN Reason: Keep Vein Open Last Admin: 05/04/21 23:43 Dose: 10 ml Documented by: - Exam Quality Assessment: Supplemental Oxygen. No: DVT Prophylaxis General: Alert, Oriented, Cooperative, Mild Distress, Other (Pulmonary cachexia, appears older than stated age.) HEENT: Pupils Equal, Pupils Reactive, EOMI Neck: Supple, Trachea Midline Lungs: Decreased Breath Sounds, Crackles (Widely scattered), Other (Increased AP diameter, stiff thorax) Cardiovascular: Regular Rate, Regular Rhythm GI/Abdominal Exam: Normal Bowel Sounds, Soft, No Distention (Female) Exam: Deferred Back Exam: Normal Inspection (Kyphosis) Extremities: Normal Inspection, No Pedal Edema Skin: Warm, Dry, Intact Neurological: No New Focal Deficit Psy/Mental Status: Alert, Normal Affect, Normal Mood - Patient Data Lab Results Last 24 hrs: Laboratory Results - last 24 hr 05/05/21 05/06/21 05/06/21 Range/Units 11:50 05:10 05:10 WBC 8.16 (3.98-10.04) K/mm3 RBC 3.87 L (3.98-5.22) M/mm3 Hgb 11.4 (11.2-15.7) gm/dl Hct 37.8 (34.1-44.9) % MCV 97.7 H D (79.4-94.8) fl MCH 29.5 (25.6-32.2) pg MCHC 30.2 L (32.2-35.5) g/dl RDW Std Deviation 45.9 (36.4-46.3) fL Plt Count 232 (182-369) K/mm3 MPV 10.3 (9.4-12.3) fl Neut % (Auto) 92.6 H (34.0-71.1) % Lymph % (Auto) 5.0 L (19.3-51.7) % Gage % (Auto) 2.3 L (4.7-12.5) % Eos % (Auto) 0 L (0.7-5.8) Baso % (Auto) 0.0 L (0.1-1.2) % Neut # (Auto) 7.55 H (1.56-6.13) K/mm3 Lymph # (Auto) 0.41 L (1.18-3.74) K/mm3 Gage # (Auto) 0.19 L (0.24-0.36) K/mm3 Eos # (Auto) 0.00 L (0.04-0.36) K/mm3 Baso # (Auto) 0.00 L (0.01-0.08) K/mm3 Manual Slide Review Abnormal smear Sodium 142 (136-145) mEq/L Potassium 5.2 H (3.5-5.1) mEq/L Chloride 101 (98-107) mEq/L Carbon Dioxide 39 H (21-32) mEq/L Anion Gap 7.2 (5-15) BUN 12 (7-18) mg/dL Creatinine 0.2 L (0.55-1.02) mg/dL Est Cr Clr Drug Dosing 185.87 mL/min Estimated GFR (MDRD) > 60 (>60) mL/min BUN/Creatinine Ratio 60.0 H (14-18) Glucose 137 H (70-99) mg/dL Calcium 8.1 L (8.5-10.1) mg/dL Phosphorus 3.3 (2.6-4.7) mg/dL Magnesium 1.9 (1.8-2.4) mg/dL Total Bilirubin 0.4 (0.2-1.0) mg/dL AST 29 (15-37) U/L ALT 18 (14-59) U/L Alkaline Phosphatase 99 (46-116) U/L Total Protein 6.7 (6.4-8.2) g/dl Albumin 2.3 L (3.4-5.0) g/dl Globulin 4.4 gm/dL Albumin/Globulin Ratio 0.5 L (1-2) Body Fluid Site Left lung Fluid Type Pleural fluid Fluid Volume 25 ML Fluid Color Yellow Fluid Appearance Cloudy Fluid WBC 0.53 (0.20-0.60) k/mm*3 Fluid RBC (0.00-0.010) 10*6/uL Fluid Diff Comment Not Reportable Fluid Seg Neutrophils 59.0 H (0-25) % Fluid Lymphocytes 22.0 (0-78) % Fluid Monocytes 8.0 (0-71) % Fl Polymorphonucl Cell Not Reportable Fluid Macrophages 11 Fluid Glucose 104 mg/dL Fluid Total Protein 3.6 gm/dl Fluid LDH 117 U/L Result Diagrams: 05/06/21 05:10 05/06/21 05:10 Sepsis Event Note - Evaluation Sepsis Screening Result: Severe Sepsis Risk - Focused Exam Vital Signs: Vital Signs Temp Pulse Resp BP BP Pulse Ox Pulse Ox 05/06/21 07:00 110 H 30 H 93 L 05/06/21 06:49 96 05/06/21 06:38 31 H 98 05/06/21 06:32 98 05/06/21 06:06 92 L 05/06/21 06:01 106 H 25 H 92 L 05/06/21 06:00 107 H 26 H 102/71 91 L 05/06/21 05:12 91 L 05/06/21 04:00 36.6 C 23 H 104/63 94 L 05/06/21 03:00 108 H 21 H 92 L 05/06/21 02:01 115 H 29 H 94 L 05/06/21 02:00 113 H 31 H 116/64 97 05/06/21 01:00 105 H 15 93 L 05/06/21 00:00 36.6 C 28 H 105/65 93 L 05/05/21 23:01 108 H 21 H 104/63 94 L 05/05/21 22:28 98 05/05/21 22:01 116 H 36 H 108/60 96 95 05/05/21 21:56 90 L 05/05/21 21:01 125 H 27 H 117/81 92 L 05/05/21 20:21 93 L 05/05/21 20:10 94 L 05/05/21 20:00 36.8 C 25 H 120/73 94 L - Problem List & Annotations (1) Acute and chronic respiratory failure SNOMED Code(s): 99626267 Code(s): J96.20 - ACUTE AND CHR RESP FAILURE, UNSP W HYPOXIA OR HYPERCAPNIA Status: Acute Priority: High Current Visit: Yes Qualifiers: Respiratory failure complication: hypoxia and hypercapnia Qualified Code(s): J96.21 - Acute and chronic respiratory failure with hypoxia; J96.22 - Acute and chronic respiratory failure with hypercapnia (2) COPD with exacerbation SNOMED Code(s): 235223998 Code(s): J44.1 - CHRONIC OBSTRUCTIVE PULMONARY DISEASE W (ACUTE) EXACERBATION Status: Chronic Priority: High Current Visit: Yes (3) Hypercapnia SNOMED Code(s): 02652606 Code(s): R06.89 - OTHER ABNORMALITIES OF BREATHING Status: Chronic Priority: High Current Visit: Yes (4) Hypoxemia SNOMED Code(s): 625986063 Code(s): R09.02 - HYPOXEMIA Status: Chronic Priority: High Current Visit: Yes (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 SNOMED Code(s): 445018082 Code(s): J44.9 - CHRONIC OBSTRUCTIVE PULMONARY DISEASE, UNSPECIFIED; R64 - CACHEXIA Status: Chronic Priority: High Current Visit: Yes (6) Severe protein-calorie malnutrition SNOMED Code(s): 344908141, 438200359, 271132916 Code(s): E43 - UNSPECIFIED SEVERE PROTEIN-CALORIE MALNUTRITION Status: Chronic Priority: High Current Visit: Yes (7) Tobacco dependence SNOMED Code(s): 31675329 Code(s): F17.200 - NICOTINE DEPENDENCE, UNSPECIFIED, UNCOMPLICATED Status: Chronic Priority: High Current Visit: Yes - Problem List Review Problem List Initiated/Reviewed/Updated: Yes - My Orders Last 24 Hours: My Active Orders 05/05/21 08:15 methylPREDNISolone Sod Succ [Solu-MEDROL] 125 mg IVPUSH Q8H 05/05/21 08:16 Albuterol/Ipratropium [DuoNeb 3.0-0.5 MG/3 ML] 3 ml NEB Q4HRRT PRN 05/05/21 08:17 RT Aerosol Therapy [RC] ASDIRECTED 05/05/21 08:45 Oxygen Therapy [RC] PRN VTE/DVT Education [RC] Vital Signs [RC] Q4H Consult to Cartridge Loader [CONS] Routine Consult to Physician [CONS] Routine OT Evaluation and Treatment [CONS] Routine PT Evaluation and Treatment [CONS] Routine Acetaminophen [TylenoL] 650 mg PO Q4H PRN Docusate Sodium [Colace] 100 mg PO BID PRN Heparin Sodium 5,000 units SUBCUT Q8H Morphine 2 mg IVPUSH Q2H PRN Ondansetron [Zofran ODT] 4 mg PO Q4H PRN oxyCODONE 5 mg PO Q4H PRN VTE Mechanical Contraindications [AST] Per Unit Routine Resuscitation Status Routine 05/05/21 08:46 Cardiac Monitoring [RC] CONTINUOUS Pulse Oximetry [RC] CONTINUOUS 05/05/21 08:51 Notify Provider Consults [RC] ASDIRECTED 05/05/21 08:56 Sodium Chloride 0.9% [Saline Flush] 10 ml FLUSH ONETIME PRN 05/05/21 09:00 Nicotine [Habitrol] 14 mg TRDERM DAILY 05/05/21 Lunch Regular Diet [DIET] 05/05/21 11:50 MISCELLANEOUS CULT [MREF] Routine 05/05/21 17:10 LORazepam [Ativan] 0.5 mg IVPUSH Q4H PRN 05/05/21 21:00 cefTRIAXone [Rocephin] 1 gm Sodium Chloride 0.9% [Normal Saline] 100 ml IV Q24H 05/06/21 07:00 LACTATE DEHYDROGENASE,LDH [CHEM] Routine - Assessment Assessment:: The patient is a 61-year-old lady who will remain in ICU due to severe oxygen demands. The patient is also on telemetry and continuous pulse oximetry. The patient's oxygen demand will be adjusted to keep her saturations around 90%. The patient is a CO2 retainer and oxygen should be kept relatively low. The patient also will be continued with her ceftriaxone and steroids. Breathing treatments duo nebs inhaled every 4 hours or as needed per respiratory therapy. Dietary has been consulted. This was due to the patient's severe protein calorie malnutrition as well as pulmonary cachexia. Dr. Tovar has been managing her chest tube. The patient will be afforded Ativan as necessary for anxiety due to BiPAP. PT OT will be ordered for the patient. 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 The patient may be appropriate for discharge in 4 to 5 days. Her prognosis is guarded. - Plan Plan:: The patient is a 61-year-old lady who has been admitted to the intensive care unit as an inpatient with acute on chronic hypoxic respiratory failure. The patient does have a history of COPD and she will be treated for exacerbation with Rocephin 1 g IV every 24 hours along with Solu-Medrol 120 mg every 8 hours. The patient also will be placed on BiPAP as necessary and oxygen support to help keep her saturations around 92%. Because of the patient's pulmonary cachexia I have ordered a dietary consult as she is also severely protein malnourished. The patient's recorded weight is 36.2 kg. The patient will have DVT prophylaxis with the use of heparin 5000 units subcu every 8 hours. I have also ordered the patient to have a regular diet as tolerated. She will be kept on telemetry and continuous pulse oximetry. I have also ordered a nicotine patch 14 mg daily for the patient. I have advised the patient of my concern with regards to intubation and that if this happened likely she would be transferred to tertiary care center. For now we will continue with DuoNeb treatments every 4 hours as needed for shortness of breath or wheezing every 4 hours as per RT or as needed. I had discussed the case with surgeon on-call who feels that the pleural effusion may not be appropriate to aspirate here. The patient will likely need to have this aspirated at some point in time. I have also ordered a CT scan to help exclude malignancy associated effusion. Overall the patient's prognosis is poor. She is in a full resuscitation code. She should be appropriate for discharge after improvement of her symptoms and antibiotic treatment in 4 to 5 days.
[2021-05-06] MEDS ORDERED: Furosemide 20 MG/2 ML VIAL IVPUSH ONE (07:59)
[2021-05-06] MEDS: Nicotine 14 MG/24 Hr Patch TRDERM SCH (08:39)
--- NOTE | 2021-05-06 08:57 | CR ---
Chest: Portable view of the chest was obtained. Comparison: Prior chest x-ray of 05/05/21. Left basilar pneumothorax is seen which is only minimally increased in size from prior study. Diffuse pulmonary vascular prominence is seen as well as early consolidation noted within the lower left base. Heart size and mediastinum are normal. Bony structures are unremarkable. Small tubing is seen within the left mid chest which extends about 2 cm into the lung. Impression: 1. Small caliber tube within the left mid lung projecting about 2 cm into the chest. 2. Left-sided pneumothorax is seen which is minimally increased from prior exam. 3. Diffuse pulmonary vascular congestion with early consolidation also noted within the left base. Diagnostic code #3
--- NOTE | 2021-05-06 10:47 | PCM.PRNOTE ---
- Free Text/Narrative Note: Date: 05/06/2021 Procedure: left chest pigtail catheter placement Indication: pneumothorax after thoracentesis with dislodged pigtail catheter Surgeon: Brad Tovar MD Report: Written consent was signed. The patient was recumbent with the left arm held behind her head. 1% lidocaine, 5 cc, was used to anesthetize skin overlying the 5th rib space at the anterior axillary line. A small stab incision was made and a Safe-T pigtail thoracentesis catheter was advanced into the pleural space. A syringe was used to aspirate air and eventually thin straw-colored pleural fluid. About 250 cc pleural fluid was aspirated. The catheter was then secured at the skin with suture and dressed with a bandaid. The catheter was connected to a pneumostat one-way valve portable device. The patient's SpO2 remained steady at 88-90% on CPAP throughout the procedure. A follow up chest x-ray was ordered.
[2021-05-06] MEDS: Heparin Sodium 5,000 Units/ML Vial SUBCUT SCH ×2 (11:12→20:20)
--- NOTE | 2021-05-06 11:28 | CR ---
Chest: Portable view of the chest was obtained. Comparison: Prior chest x-ray performed earlier on the same day (8:31 AM). Previous left basilar pneumothorax has diminished in size. Repositioning of small caliber chest tube is seen on the left side. Heart size and mediastinum are stable. Lung findings are stable. Impression: 1. Decreased left basilar pneumothorax with repositioning of small caliber left sided chest tube. 2. Other findings within the chest are stable. Diagnostic code #3
[2021-05-06] MEDS: Sodium Chloride 0.9% 1,000 ML IV SCH (17:10)
--- NOTE | 2021-05-06 18:48 | CR ---
Chest: Portable view of the chest was obtained. Comparison: Prior chest x-ray performed earlier on the same date (11:03 AM) Previous left-sided small caliber chest tube is not appreciated on this exam. Minimal pneumothorax is noted. Slight subcutaneous air is seen within the left chest wall. Parenchymal change remains stable throughout both lungs. Heart size and mediastinum are stable. Bony structures are also stable. Impression: 1. Minimal left-sided pneumothorax. Previous small caliber chest tube is not seen on current chest x-ray. Subcutaneous air is noted within the left chest wall. 2. Diffuse parenchymal change remains within both lungs. Diagnostic code #3
[2021-05-06] MEDS: cefTRIAXone 1 GM in Sodium Chloride 0.9% 100 ML IV SCH (20:20)
[2021-05-06] MEDS ORDERED: Azithromycin 500 MG in Sodium Chloride 0.9% 250 ML IV SCH (21:00)
--- NOTE | 2021-05-06 21:41 | CR ---
Chest: Portable view of the chest was obtained. Comparison: Most previous study in 10/26/11 with additional exams having been performed subsequent to this study. This study has only now been made available for interpretation. Left-sided pleural effusion is seen. Mild increased density within the left base is seen. Pulmonary vessels appear congested. Heart is poorly seen but is likely enlarged. Bony structures are osteopenic. Impression: 1. Left-sided pleural effusion with increased density within the left lung base compatible with pneumonia or atelectasis. 2. Pulmonary vessels are somewhat congested. Diagnostic code #3
[2021-05-07] MEDS: methylPREDNISolone Sodium Succinate 125 MG/2 ML SDV IVPUSH SCH ×3 (01:45→16:42)
[2021-05-07] MEDS: Albuterol/Ipratropium 3.0-0.5 MG/3 ML Neb Soln NEB PRN ×2 (03:28→10:09)
[2021-05-07] MEDS: Heparin Sodium 5,000 Units/ML Vial SUBCUT SCH ×3 (04:22→18:12)
--- NOTE | 2021-05-07 06:47 | PCM.PN ---
- General Info Date of Service: 05/07/21 Admission Dx/Problem (Free Text): Admission Diagnosis/Problem Admission Diagnosis/Problem COPD, Severe chronic obstructive pulmonary disease Subjective Update: The patient is a critically ill 61-year-old lady who will be retained in ICU. The patient was admitted secondary to severe COPD exacerbation along with a left-sided pleural effusion. The patient today has been off and on BiPAP with s upplementation via nasal cannula. She says that she is feeling better. She has been able to speak better. The patient also says that she would like to have her hydrocodone/acetaminophen 10/325 as opposed to oxycodone. The patient also is looking forward to possibly going home soon. She has been tolerating diet. Functional Status: Reports: Pain Controlled, Tolerating Diet - Review of Systems General: Reports: Weakness, Fatigue HEENT: Reports: No Symptoms Pulmonary: Reports: Shortness of Breath Cardiovascular: Reports: No Symptoms Gastrointestinal: Reports: No Symptoms Genitourinary: Reports: No Symptoms Musculoskeletal: Reports: No Symptoms Skin: Reports: No Symptoms Neurological: Reports: No Symptoms Psychiatric: Reports: No Symptoms - Patient Data Vitals - Most Recent: Last Vital Signs Temp 36.7 C 05/07/21 04:00 Pulse 110 H 05/06/21 16:01 Resp 22 H 05/07/21 06:10 BP 110/72 05/07/21 04:00 Pulse Ox 90 L 05/07/21 06:10 Weight - Most Recent: 40.007 kg I&O - Last 24 Hours: Intake & Output 05/06/21 05/06/21 05/07/21 14:59 22:59 06:59 Intake Total 745 710 Output Total 23 225 Balance -23 520 710 Lab Results Last 24 Hours: Laboratory Results - last 24 hr 05/06/21 05/06/21 Range/Units 05:10 14:10 Potassium 3.6 D (3.5-5.1) mEq/L Lactate Dehydrogenase 380 H (81-234) U/L Mario Results Last 24 Hours: Microbiology 05/05/21 11:50 Gram Stain - Final Pleural Fluid - Pleural Cavity, Left 05/05/21 00:05 Blood Culture - Preliminary Blood - Venous - Lab Draw 05/05/21 00:01 Blood Culture - Preliminary Blood - Venous Med Orders - Current: Current Medications Acetaminophen (Acetaminophen 325 Mg Tab) 650 mg PO Q4H PRN PRN Reason: Pain (Mild 1-3)/fever Albuterol/Ipratropium (Albuterol/Ipratropium 3.0-0.5 Mg/3 Ml Neb Soln) 3 ml NEB Q4HRRT PRN PRN Reason: Wheezing Last Admin: 05/07/21 03:28 Dose: 3 ml Documented by: Docusate Sodium (Docusate Sodium 100 Mg Cap) 100 mg PO BID PRN PRN Reason: Constipation Heparin Sodium (Porcine) (Heparin Sodium 5,000 Units/Ml Vial) 5,000 units SUBCUT Q8H [facility] Last Admin: 05/07/21 04:22 Dose: 5,000 units Documented by: Ceftriaxone Sodium 1 gm/ (Sodium Chloride) 100 mls @ 200 mls/hr IV Q24H [facility] Last Admin: 05/06/21 20:20 Dose: 200 mls/hr Documented by: Sodium Chloride (Normal Saline) 1,000 mls @ 40 mls/hr IV ASDIRECTED [facility] Last Admin: 05/06/21 17:10 Dose: 40 mls/hr Documented by: Lorazepam (Lorazepam 2 Mg/Ml Sdv) 0.5 mg IVPUSH Q4H PRN PRN Reason: Agitation Last Admin: 05/05/21 17:18 Dose: 0.5 mg Documented by: Methylprednisolone Sodium Succinate (Methylprednisolone Sodium Succinate 125 Mg/2 Ml Sdv) 125 mg IVPUSH Q8H [facility] Last Admin: 05/07/21 01:45 Dose: 125 mg Documented by: Nicotine (Nicotine 14 Mg/24 Hr Patch) 14 mg TRDERM DAILY [facility] Last Admin: 05/06/21 08:39 Dose: 14 mg Documented by: Ondansetron HCl (Ondansetron 4 Mg Tab.Dis) 4 mg PO Q4H PRN PRN Reason: nausea, able to take PO Oxycodone HCl (Oxycodone 5 Mg Tab) 5 mg PO Q4H PRN PRN Reason: Pain (moderate 4-6) Last Admin: 05/07/21 04:22 Dose: 5 mg Documented by: Sodium Chloride (Sodium Chloride 0.9% 10 Ml Syringe) 10 ml FLUSH ONETIME PRN PRN Reason: Keep Vein Open Last Admin: 05/05/21 09:53 Dose: 10 ml Documented by: Discontinued Medications Albuterol/Ipratropium (Albuterol/Ipratropium 3.0-0.5 Mg/3 Ml Neb Soln) 3 ml NEB ONETIME ONE Stop: 05/05/21 03:31 Last Admin: 05/05/21 03:44 Dose: 3 ml Documented by: Furosemide (Furosemide 20 Mg/2 Ml Vial) 20 mg IVPUSH ONETIME ONE Stop: 05/06/21 08:00 Last Admin: 05/06/21 08:39 Dose: 20 mg Documented by: Heparin Sodium (Porcine) (Heparin Sodium 5,000 Units/Ml Vial) 5,000 units SUBCUT Q8H [facility] Last Admin: 05/05/21 17:14 Dose: Not Given Documented by: Ceftriaxone Sodium 1 gm/ (Sodium Chloride) 100 mls @ 200 mls/hr IV ONETIME ONE Stop: 05/05/21 01:33 Last Admin: 05/05/21 01:10 Dose: 200 mls/hr Documented by: Azithromycin 500 mg/ Sodium (Chloride) 250 mls @ 250 mls/hr IV ONETIME ONE Stop: 05/05/21 04:31 Last Admin: 05/05/21 03:41 Dose: 250 mls/hr Documented by: Sodium Chloride (Normal Saline) 1,000 mls @ 150 mls/hr IV ASDIRECTED [facility] Last Admin: 05/05/21 05:22 Dose: 150 mls/hr Documented by: Methylprednisolone Sodium Succinate 70 mg/ Sodium Chloride 250.56 mls @ 250.56 mls/hr IV ONETIME ONE Stop: 05/05/21 06:46 Last Admin: 05/05/21 07:55 Dose: Not Given Documented by: Azithromycin 500 mg/ Sodium (Chloride) 250 mls @ 250 mls/hr IV Q24H [facility] Sodium Chloride (Normal Saline) 45 mls @ 40 mls/hr IV ASDIRECTED [facility] Last Admin: 05/05/21 09:53 Dose: 40 mls/hr Documented by: Ceftriaxone Sodium 1 gm/ (Sodium Chloride) 100 mls @ 200 mls/hr IV Q24H [facility] Iopamidol (Iopamidol 755 Mg/Ml 100 Ml Bottle) 100 ml IVPUSH ONETIME ONE Stop: 05/05/21 08:57 Last Admin: 05/05/21 09:53 Dose: 100 ml Documented by: Morphine Sulfate (Morphine 2 Mg/Ml Syringe) 2 mg IVPUSH Q2H PRN PRN Reason: Pain (severe 7-10) Stop: 05/06/21 08:48 Last Admin: 05/05/21 21:18 Dose: 2 mg Documented by: Sodium Chloride (Sodium Chloride 0.9% 10 Ml Syringe) 10 ml FLUSH ASDIRECTED PRN PRN Reason: Keep Vein Open Last Admin: 05/04/21 23:43 Dose: 10 ml Documented by: - Exam Quality Assessment: Supplemental Oxygen, DVT Prophylaxis General: Alert, Oriented, Cooperative, No Acute Distress, Other (Pulmonary cachexia, appears much older than stated age.) HEENT: Pupils Equal, Pupils Reactive Neck: Supple, Trachea Midline Lungs: Decreased Breath Sounds (Poor air exchange), Crackles (Wide scattered) Cardiovascular: Regular Rate, Regular Rhythm GI/Abdominal Exam: Normal Bowel Sounds, Soft, Non-Tender, No Distention (Female) Exam: Deferred Back Exam: Normal Inspection, Full Range of Motion Extremities: Normal Inspection, No Pedal Edema Skin: Warm, Dry, Intact Neurological: No New Focal Deficit Psy/Mental Status: Alert, Normal Affect, Normal Mood - Patient Data Lab Results Last 24 hrs: Laboratory Results - last 24 hr 05/06/21 05/06/21 Range/Units 05:10 14:10 Potassium 3.6 D (3.5-5.1) mEq/L Lactate Dehydrogenase 380 H (81-234) U/L Result Diagrams: 05/07/21 06:55 05/07/21 06:55 Mario Results Last 24 hrs: Microbiology 05/05/21 11:50 Gram Stain - Final Pleural Fluid - Pleural Cavity, Left 05/05/21 00:05 Blood Culture - Preliminary Blood - Venous - Lab Draw 05/05/21 00:01 Blood Culture - Preliminary Blood - Venous Sepsis Event Note - Evaluation Sepsis Screening Result: Possible Sepsis Risk - Focused Exam Vital Signs: Vital Signs Temp Resp BP Pulse Ox Pulse Ox Pulse Ox 05/07/21 06:10 22 H 90 L 05/07/21 06:00 88 L 05/07/21 04:00 36.7 C 22 H 110/72 93 L 05/07/21 03:28 94 L 05/07/21 00:00 36.9 C 23 H 103/62 94 L 05/06/21 21:36 95 05/06/21 20:00 36.8 C 25 H 99/62 97 - Problem List & Annotations (1) Acute and chronic respiratory failure SNOMED Code(s): 07624344 Code(s): J96.20 - ACUTE AND CHR RESP FAILURE, UNSP W HYPOXIA OR HYPERCAPNIA Status: Acute Priority: High Current Visit: Yes Qualifiers: Respiratory failure complication: hypoxia and hypercapnia Qualified Code(s): J96.21 - Acute and chronic respiratory failure with hypoxia; J96.22 - Acute and chronic respiratory failure with hypercapnia (2) COPD with exacerbation SNOMED Code(s): 265713927 Code(s): J44.1 - CHRONIC OBSTRUCTIVE PULMONARY DISEASE W (ACUTE) EXACERBATION Status: Chronic Priority: High Current Visit: Yes (3) Hypercapnia SNOMED Code(s): 57987971 Code(s): R06.89 - OTHER ABNORMALITIES OF BREATHING Status: Chronic Priority: High Current Visit: Yes (4) Hypoxemia SNOMED Code(s): 509943556 Code(s): R09.02 - HYPOXEMIA Status: Chronic Priority: High Current Visit: Yes (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 SNOMED Code(s): 591147498 Code(s): J44.9 - CHRONIC OBSTRUCTIVE PULMONARY DISEASE, UNSPECIFIED; R64 - [place] Status: Chronic Priority: High Current Visit: Yes (6) Severe protein-calorie malnutrition SNOMED Code(s): 604138983, 775647775, 697001240 Code(s): E43 - UNSPECIFIED SEVERE PROTEIN-CALORIE MALNUTRITION Status: Ch ronic Priority: High Current Visit: Yes (7) Tobacco dependence SNOMED Code(s): 93876769 Code(s): F17.200 - NICOTINE DEPENDENCE, UNSPECIFIED, UNCOMPLICATED Status: Chronic Priority: High Current Visit: Yes - Problem List Review Problem List Initiated/Reviewed/Updated: Yes - My Orders Last 24 Hours: My Active Orders 05/06/21 11:00 Heparin Sodium 5,000 units SUBCUT Q8H 05/07/21 06:41 CBC WITH AUTO DIFF [HEME] Routine COMPREHENSIVE METABOLIC PN,CMP [CHEM] Routine MAGNESIUM [CHEM] Routine - Assessment Assessment:: The patient is a 61-year-old lady who will remain in ICU due to severe oxygen demands. The patient is also on telemetry and continuous pulse oximetry. The patient's oxygen demand will be adjusted to keep her saturations around 90%. The patient is a CO2 retainer and oxygen should be kept relatively low. The patient also will be continued with her ceftriaxone and steroids. Breathing treatments duo nebs inhaled every 4 hours or as needed per respiratory therapy. Dietary has been consulted. This was due to the patient's severe protein ca lars malnutrition as well as pulmonary cachexia. Dr. Tovar has been managing her chest tube. The patient will be afforded Ativan as necessary for anxiety due to BiPAP. PT OT will be ordered for the patient. The patient will need to have to follow-up with her pulmonary/personnel associate on eventual discharge. The patient may be appropriate for discharge in 4 to 5 days. Her prognosis is guarded. 05/07/2021 The patient is a 61-year-old lady who is currently in ICU due to severe COPD exacerbation and high oxygen demands. The patient's oxygen will be continued to keep her saturations around 90%. The patient is a chronic CO2 retainer. Repeat laboratory studies have been ordered. We will continue nebulizer treatments every 4 hours or as needed per RT. She will continue on the ceftriaxone and steroids. The patient is also been evaluated by a dietitian and her diet will be augmented with protein supplement. PT OT is also been ordered. I have discontinued the patient's oxycodone and placed her on hydrocodone/acetaminophen 10/325 mg 1 every 4 hours as needed for pain. DVT prophylaxis is been initiated with heparin 5000 units subcu every 8 hours. The patient is also being followed by surgeon, Dr. Tovar, with regards to her pleural effusion and subsequent pneumothorax. The patient also had been counseled with regards to smoking sensation. I had also discussed with the patient concern for malignancy as a source of the pleural effusion. Currently awaiting malignancy screening of the pleural fluid. Pleural fluid was transudate of in nature by lights criteria. The patient should be appropriate for downgrade from ICU in 1 day and possible discharge in 2 to 3 days. - Plan Plan:: The patient is a 61-year-old lady who has been admitted to the intensive care unit as an inpatient with acute on chronic hypoxic respiratory failure. The patient does have a history of COPD and she will be treated for exacerbation with Rocephin 1 g IV every 24 hours along with Solu-Medrol 120 mg every 8 hours. The patient also will be placed on BiPAP as necessary and oxygen support to help keep her saturations around 92%. Because of the patient's pulmonary cachexia I have ordered a dietary consult as she is also severely protein malnourished. The patient's recorded weight is 36.2 kg. The patient will have DVT prophylaxis with the use of heparin 5000 units subcu every 8 hours. I have also ordered the patient to have a regular diet as tolerated. She will be kept on telemetry and continuous pulse oximetry. I have also ordered a nicotine patch 14 mg daily for the patient. I have advised the patient of my concern with regards to intubation and that if this happened likely she would be transferred to tertiary care center. For now we will continue with DuoNeb treatments every 4 hours as needed for shortness of breath or wheezing every 4 hours as per RT or as needed. I had discussed the case with surgeon on-call who feels that the pleural effusion may not be appropriate to aspirate here. The patient will likely need to have this aspirated at some point in time. I have also ordered a CT scan to help exclude malignancy associated effusion. Overall the patient's prognosis is poor. She is in a full resuscitation code. She should be appropriate for discharge after improvement of her symptoms and antibiotic treatment in 4 to 5 days.
--- NOTE | 2021-05-07 09:02 | CR ---
Chest: Frontal view of the chest was obtained. Comparison: Prior chest x-ray of 05/06/21. Small left-sided pneumothorax is noted within the left base. This finding is more noticeable than on prior study which is felt to be technique related. Subcutaneous air is seen which has slightly diminished. Small right-sided pleural effusion is noted on this exam. Mild increased pulmonary vascular congestion is seen which is stable. Slight density within both lung bases compatible with mild atelectasis or areas of pneumonia. Heart size is within normal limits for technique. Impression: 1. Small left-sided pneumothorax more noticeable than on prior study but likely better seen due to differences in technique. 2. Mild right-sided pleural effusion is seen. 3. Slight increased density within both lung bases either due to atelectasis or minimal areas of pneumonia. 4. Mild persisting pulmonary vascular congestion is noted. Diagnostic code #3
[2021-05-07] MEDS: Nicotine 14 MG/24 Hr Patch TRDERM SCH (09:33)
[2021-05-07] MEDS: Acetaminophen/HYDROcodone 325-10 MG Tab PO PRN ×3 (09:55→21:20)
[2021-05-07] MEDS: Sodium Chloride 0.9% 1,000 ML IV SCH (16:47)
[2021-05-07] MEDS: cefTRIAXone 1 GM in Sodium Chloride 0.9% 100 ML IV SCH (21:13)
[2021-05-07] MEDS: Mirtazapine 15 MG Tab PO SCH (21:14)
[2021-05-08] MEDS: methylPREDNISolone Sodium Succinate 125 MG/2 ML SDV IVPUSH SCH ×3 (00:19→16:45)
[2021-05-08] MEDS: Heparin Sodium 5,000 Units/ML Vial SUBCUT SCH ×3 (03:38→20:28)
--- NOTE | 2021-05-08 07:06 | PCM.PN ---
- General Info Date of Service: 05/08/21 Admission Dx/Problem (Free Text): Admission Diagnosis/Problem Admission Diagnosis/Problem COPD, Severe chronic obstructive pulmonary disease Subjective Update: The patient is a 61-year-old lady who was admitted to acute hospitalization in the intensive care unit on May 05, 2021 due to severe COPD exacerbation and respiratory failure. The patient has been on antibiotics as well as steroids and nebulizers and she has improved today. The patient says that she feels much better. She has been breathing better. She has denied any pain. She says that she has put on some weight. The patient is also back to her baseline 4 L of oxygen via nasal cannula. No other complaints today. Functional Status: Reports: Pain Controlled, Tolerating Diet - Review of Systems General: Reports: Weakness HEENT: Reports: No Symptoms Pulmonary: Reports: Shortness of Breath Cardiovascular: Reports: No Symptoms Gastrointestinal: Reports: No Symptoms Genitourinary: Reports: No Symptoms Musculoskeletal: Reports: No Symptoms Skin: Reports: No Symptoms Neurological: Reports: No Symptoms Psychiatric: Reports: No Symptoms - Patient Data Vitals - Most Recent: Last Vital Signs Temp 36.8 C 05/08/21 04:00 Pulse 96 05/08/21 04:00 Resp 16 05/08/21 04:00 BP 105/57 L 05/08/21 04:00 Pulse Ox 94 L 05/08/21 05:55 Weight - Most Recent: 42.184 kg I&O - Last 24 Hours: Intake & Output 05/07/21 05/08/21 05/08/21 22:59 06:59 14:59 Intake Total 1580 997 Output Total 400 Balance 1580 597 Lab Results Last 24 Hours: Laboratory Results - last 24 hr 05/07/21 05/07/21 05/08/21 Range/Units 06:55 06:55 06:00 WBC 10.73 H 12.54 H (3.98-10.04) K/mm3 RBC 3.69 L 3.61 L (3.98-5.22) M/mm3 Hgb 11.0 L 10.7 L (11.2-15.7) gm/dl Hct 36.8 36.9 (34.1-44.9) % MCV 99.7 H 102.2 H (79.4-94.8) fl MCH 29.8 29.6 (25.6-32.2) pg MCHC 29.9 L 29.0 L (32.2-35.5) g/dl RDW Std Deviation 46.3 47.9 H (36.4-46.3) fL Plt Count 204 227 (182-369) K/mm3 MPV 9.3 L 9.2 L (9.4-12.3) fl Neut % (Auto) 91.7 H 94.1 H (34.0-71.1) % Lymph % (Auto) 3.6 L 2.3 L (19.3-51.7) % [place] % (Auto) 4.5 L 3.4 L (4.7-12.5) % Eos % (Auto) 0 L 0 L (0.7-5.8) Baso % (Auto) 0.0 L 0.0 L (0.1-1.2) % Neut # (Auto) 9.84 H 11.80 H (1.56-6.13) K/mm3 Lymph # (Auto) 0.39 L 0.29 L (1.18-3.74) K/mm3 [place] # (Auto) 0.48 H 0.43 H (0.24-0.36) K/mm3 Eos # (Auto) 0.00 L 0.00 L (0.04-0.36) K/mm3 Baso # (Auto) 0.00 L 0.00 L (0.01-0.08) K/mm3 Manual Slide Review Abnormal smear Abnormal smear Sodium 144 (136-145) mEq/L Potassium 3.8 (3.5-5.1) mEq/L Chloride 102 (98-107) mEq/L Carbon Dioxide 42 H* (21-32) mEq/L Anion Gap 3.8 L (5-15) BUN 18 (7-18) mg/dL Creatinine 0.3 L (0.55-1.02) mg/dL Est Cr Clr Drug Dosing 122.80 mL/min Estimated GFR (MDRD) > 60 (>60) mL/min BUN/Creatinine Ratio 60.0 H (14-18) Glucose 139 H (70-99) mg/dL Calcium 7.9 L (8.5-10.1) mg/dL Magnesium 1.9 (1.8-2.4) mg/dL Total Bilirubin 0.1 L (0.2-1.0) mg/dL AST 12 L (15-37) U/L ALT 17 (14-59) U/L Alkaline Phosphatase 79 (46-116) U/L Total Protein 6.1 L (6.4-8.2) g/dl Albumin 2.3 L (3.4-5.0) g/dl Globulin 3.8 gm/dL Albumin/Globulin Ratio 0.6 L (1-2) 05/08/21 Range/Units 06:00 WBC (3.98-10.04) K/mm3 RBC (3.98-5.22) M/mm3 Hgb (11.2-15.7) gm/dl Hct (34.1-44.9) % MCV (79.4-94.8) fl MCH (25.6-32.2) pg MCHC (32.2-35.5) g/dl RDW Std Deviation (36.4-46.3) fL Plt Count (182-369) K/mm3 MPV (9.4-12.3) fl Neut % (Auto) (34.0-71.1) % Lymph % (Auto) (19.3-51.7) % [place] % (Auto) (4.7-12.5) % Eos % (Auto) (0.7-5.8) Baso % (Auto) (0.1-1.2) % Neut # (Auto) (1.56-6.13) K/mm3 Lymph # (Auto) (1.18-3.74) K/mm3 [place] # (Auto) (0.24-0.36) K/mm3 Eos # (Auto) (0.04-0.36) K/mm3 Baso # (Auto) (0.01-0.08) K/mm3 Manual Slide Review Sodium 150 H (136-145) mEq/L Potassium 4.9 (3.5-5.1) mEq/L Chloride 107 (98-107) mEq/L Carbon Dioxide 44 H* (21-32) mEq/L Anion Gap 3.9 L (5-15) BUN 17 (7-18) mg/dL Creatinine 0.3 L (0.55-1.02) mg/dL Est Cr Clr Drug Dosing 129.48 mL/min Estimated GFR (MDRD) > 60 (>60) mL/min BUN/Creatinine Ratio 56.7 H (14-18) Glucose 134 H (70-99) mg/dL Calcium 7.8 L (8.5-10.1) mg/dL Magnesium 1.9 (1.8-2.4) mg/dL Total Bilirubin (0.2-1.0) mg/dL AST (15-37) U/L ALT (14-59) U/L Alkaline Phosphatase (46-116) U/L Total Protein (6.4-8.2) g/dl Albumin (3.4-5.0) g/dl Globulin gm/dL Albumin/Globulin Ratio (1-2) Mario Results Last 24 Hours: Microbiology 05/05/21 11:50 Miscellaneous Reference Culture - Preliminary Pleural Fluid - Pleural Cavity, Left Gram Stain - Final Med Orders - Current: Current Medications Acetaminophen (Acetaminophen 325 Mg Tab) 650 mg PO Q4H PRN PRN Reason: Pain (Mild 1-3)/fever Hydrocodone Bitart/Acetaminophen (Acetaminophen/Hydrocodone 325-10 Mg Tab) 1 tab PO Q4H PRN PRN Reason: Pain (moderate 4-6) Last Admin: 05/07/21 21:20 Dose: 1 tab Documented by: Albuterol/Ipratropium (Albuterol/Ipratropium 3.0-0.5 Mg/3 Ml Neb Soln) 3 ml NEB Q4HRRT PRN PRN Reason: Wheezing Last Admin: 05/07/21 10:09 Dose: 3 ml Documented by: Docusate Sodium (Docusate Sodium 100 Mg Cap) 100 mg PO BID PRN PRN Reason: Constipation Heparin Sodium (Porcine) (Heparin Sodium 5,000 Units/Ml Vial) 5,000 units SUBCUT Q8H OBINNA Last Admin: 05/08/21 03:38 Dose: 5,000 units Documented by: Ceftriaxone Sodium 1 gm/ (Sodium Chloride) 100 mls @ 200 mls/hr IV Q24H OBINNA Last Admin: 05/07/21 21:13 Dose: 200 mls/hr Documented by: Sodium Chloride (Normal Saline) 1,000 mls @ 40 mls/hr IV ASDIRECTED [facility] Last Admin: 05/07/21 16:47 Dose: 40 mls/hr Documented by: Lorazepam (Lorazepam 2 Mg/Ml Sdv) 0.5 mg IVPUSH Q4H PRN PRN Reason: Agitation Last Admin: 05/05/21 17:18 Dose: 0.5 mg Documented by: Methylprednisolone Sodium Succinate (Methylprednisolone Sodium Succinate 125 Mg/2 Ml Sdv) 125 mg IVPUSH Q8H [facility] Last Admin: 05/08/21 00:19 Dose: 125 mg Documented by: Mirtazapine (Mirtazapine 15 Mg Tab) 7.5 mg PO BEDTIME [facility] Last Admin: 05/07/21 21:14 Dose: 7.5 mg Documented by: Miscellaneous Information (Remove Nicotine Patch) 1 ea TRDERM DAILY [facility] Last Admin: 05/07/21 09:33 Dose: 1 ea Documented by: Nicotine (Nicotine 14 Mg/24 Hr Patch) 14 mg TRDERM DAILY [facility] Last Admin: 05/07/21 09:33 Dose: 14 mg Documented by: Ondansetron HCl (Ondansetron 4 Mg Tab.Dis) 4 mg PO Q4H PRN PRN Reason: nausea, able to take PO Last Admin: 05/07/21 21:20 Dose: 4 mg Documented by: Sodium Chloride (Sodium Chloride 0.9% 10 Ml Syringe) 10 ml FLUSH ONETIME PRN PRN Reason: Keep Vein Open Last Admin: 05/05/21 09:53 Dose: 10 ml Documented by: Discontinued Medications Albuterol/Ipratropium (Albuterol/Ipratropium 3.0-0.5 Mg/3 Ml Neb Soln) 3 ml NEB ONETIME ONE Stop: 05/05/21 03:31 Last Admin: 05/05/21 03:44 Dose: 3 ml Documented by: Furosemide (Furosemide 20 Mg/2 Ml Vial) 20 mg IVPUSH ONETIME ONE Stop: 05/06/21 08:00 Last Admin: 05/06/21 08:39 Dose: 20 mg Documented by: Heparin Sodium (Porcine) (Heparin Sodium 5,000 Units/Ml Vial) 5,000 units SUBCUT Q8H [facility] Last Admin: 05/05/21 17:14 Dose: Not Given Documented by: Ceftriaxone Sodium 1 gm/ (Sodium Chloride) 100 mls @ 200 mls/hr IV ONETIME ONE Stop: 05/05/21 01:33 Last Admin: 05/05/21 01:10 Dose: 200 mls/hr Documented by: Azithromycin 500 mg/ Sodium (Chloride) 250 mls @ 250 mls/hr IV ONETIME ONE Stop: 05/05/21 04:31 Last Admin: 05/05/21 03:41 Dose: 250 mls/hr Documented by: Sodium Chloride (Normal Saline) 1,000 mls @ 150 mls/hr IV ASDIRECTED [facility] Last Admin: 05/05/21 05:22 Dose: 150 mls/hr Documented by: Methylprednisolone Sodium Succinate 70 mg/ Sodium Chloride 250.56 mls @ 250.56 mls/hr IV ONETIME ONE Stop: 05/05/21 06:46 Last Admin: 05/05/21 07:55 Dose: Not Given Documented by: Azithromycin 500 mg/ Sodium (Chloride) 250 mls @ 250 mls/hr IV Q24H [facility] Sodium Chloride (Normal Saline) 45 mls @ 40 mls/hr IV ASDIRECTED [facility] Last Admin: 05/05/21 09:53 Dose: 40 mls/hr Documented by: Ceftriaxone Sodium 1 gm/ (Sodium Chloride) 100 mls @ 200 mls/hr IV Q24H [facility] Iopamidol (Iopamidol 755 Mg/Ml 100 Ml Bottle) 100 ml IVPUSH ONETIME ONE Stop: 05/05/21 08:57 Last Admin: 05/05/21 09:53 Dose: 100 ml Documented by: Morphine Sulfate (Morphine 2 Mg/Ml Syringe) 2 mg IVPUSH Q2H PRN PRN Reason: Pain (severe 7-10) Stop: 05/06/21 08:48 Last Admin: 05/05/21 21:18 Dose: 2 mg Documented by: Oxycodone HCl (Oxycodone 5 Mg Tab) 5 mg PO Q4H PRN PRN Reason: Pain (moderate 4-6) Last Admin: 05/07/21 04:22 Dose: 5 mg Documented by: Sodium Chloride (Sodium Chloride 0.9% 10 Ml Syringe) 10 ml FLUSH ASDIRECTED PRN PRN Reason: Keep Vein Open Last Admin: 05/04/21 23:43 Dose: 10 ml Documented by: - Exam Quality Assessment: Supplemental Oxygen, DVT Prophylaxis General: Alert, Oriented, Cooperative HEENT: Pupils Equal, Pupils Reactive, EOMI, Mucous Membr. Moist/[place] Neck: Supple, Trachea Midline Lungs: Decreased Breath Sounds (Poor air movement), Crackles (Widespread), Other (Stiff thorax) Cardiovascular: Regular Rhythm, Tachycardia GI/Abdominal Exam: Normal Bowel Sounds, Soft, Non-Tender, No Distention (Female) Exam: Deferred Back Exam: Normal Inspection (Kyphosis), Full Range of Motion Extremities: Normal Inspection, No Pedal Edema Skin: Warm, Dry, Intact Neurological: No New Focal Deficit Psy/Mental Status: Alert, Normal Affect, Normal Mood - Patient Data Lab Results Last 24 hrs: Laboratory Results - last 24 hr 05/07/21 05/07/21 05/08/21 Range/Units 06:55 06:55 06:00 WBC 10.73 H 12.54 H (3.98-10.04) K/mm3 RBC 3.69 L 3.61 L (3.98-5.22) M/mm3 Hgb 11.0 L 10.7 L (11.2-15.7) gm/dl Hct 36.8 36.9 (34.1-44.9) % MCV 99.7 H 102.2 H (79.4-94.8) fl MCH 29.8 29.6 (25.6-32.2) pg MCHC 29.9 L 29.0 L (32.2-35.5) g/dl RDW Std Deviation 46.3 47.9 H (36.4-46.3) fL Plt Count 204 227 (182-369) K/mm3 MPV 9.3 L 9.2 L (9.4-12.3) fl Neut % (Auto) 91.7 H 94.1 H (34.0-71.1) % Lymph % (Auto) 3.6 L 2.3 L (19.3-51.7) % [place] % (Auto) 4.5 L 3.4 L (4.7-12.5) % Eos % (Auto) 0 L 0 L (0.7-5.8) Baso % (Auto) 0.0 L 0.0 L (0.1-1.2) % Neut # (Auto) 9.84 H 11.80 H (1.56-6.13) K/mm3 Lymph # (Auto) 0.39 L 0.29 L (1.18-3.74) K/mm3 [place] # (Auto) 0.48 H 0.43 H (0.24-0.36) K/mm3 Eos # (Auto) 0.00 L 0.00 L (0.04-0.36) K/mm3 Baso # (Auto) 0.00 L 0.00 L (0.01-0.08) K/mm3 Manual Slide Review Abnormal smear Abnormal smear Sodium 144 (136-145) mEq/L Potassium 3.8 (3.5-5.1) mEq/L Chloride 102 (98-107) mEq/L Carbon Dioxide 42 H* (21-32) mEq/L Anion Gap 3.8 L (5-15) BUN 18 (7-18) mg/dL Creatinine 0.3 L (0.55-1.02) mg/dL Est Cr Clr Drug Dosing 122.80 mL/min Estimated GFR (MDRD) > 60 (>60) mL/min BUN/Creatinine Ratio 60.0 H (14-18) Glucose 139 H (70-99) mg/dL Calcium 7.9 L (8.5-10.1) mg/dL Magnesium 1.9 (1.8-2.4) mg/dL Total Bilirubin 0.1 L (0.2-1.0) mg/dL AST 12 L (15-37) U/L ALT 17 (14-59) U/L Alkaline Phosphatase 79 (46-116) U/L Total Protein 6.1 L (6.4-8.2) g/dl Albumin 2.3 L (3.4-5.0) g/dl Globulin 3.8 gm/dL Albumin/Globulin Ratio 0.6 L (1-2) 05/08/21 Range/Units 06:00 WBC (3.98-10.04) K/mm3 RBC (3.98-5.22) M/mm3 Hgb (11.2-15.7) gm/dl Hct (34.1-44.9) % MCV (79.4-94.8) fl MCH (25.6-32.2) pg MCHC (32.2-35.5) g/dl RDW Std Deviation (36.4-46.3) fL Plt Count (182-369) K/mm3 MPV (9.4-12.3) fl Neut % (Auto) (34.0-71.1) % Lymph % (Auto) (19.3-51.7) % [place] % (Auto) (4.7-12.5) % Eos % (Auto) (0.7-5.8) Baso % (Auto) (0.1-1.2) % Neut # (Auto) (1.56-6.13) K/mm3 Lymph # (Auto) (1.18-3.74) K/mm3 [place] # (Auto) (0.24-0.36) K/mm3 Eos # (Auto) (0.04-0.36) K/mm3 Baso # (Auto) (0.01-0.08) K/mm3 Manual Slide Review Sodium 150 H (136-145) mEq/L Potassium 4.9 (3.5-5.1) mEq/L Chloride 107 (98-107) mEq/L Carbon Dioxide 44 H* (21-32) mEq/L Anion Gap 3.9 L (5-15) BUN 17 (7-18) mg/dL Creatinine 0.3 L (0.55-1.02) mg/dL Est Cr Clr Drug Dosing 129.48 mL/min Estimated GFR (MDRD) > 60 (>60) mL/min BUN/Creatinine Ratio 56.7 H (14-18) Glucose 134 H (70-99) mg/dL Calcium 7.8 L (8.5-10.1) mg/dL Magnesium 1.9 (1.8-2.4) mg/dL Total Bilirubin (0.2-1.0) mg/dL AST (15-37) U/L ALT (14-59) U/L Alkaline Phosphatase (46-116) U/L Total Protein (6.4-8.2) g/dl Albumin (3.4-5.0) g/dl Globulin gm/dL Albumin/Globulin Ratio (1-2) Result Diagrams: 05/08/21 06:00 05/08/21 06:00 Mario Results Last 24 hrs: Microbiology 05/05/21 11:50 Miscellaneous Reference Culture - Preliminary Pleural Fluid - Pleural Cavity, Left Gram Stain - Final Sepsis Event Note - Evaluation Sepsis Screening Result: Possible Sepsis Risk - Focused Exam Vital Signs: Vital Signs Temp Pulse Resp BP Pulse Ox Pulse Ox Pulse Ox 05/08/21 05:55 94 L 08/25/21 04:00 36.8 C 96 16 105/57 L 94 L 05/08/21 00:00 37.1 C 95 16 90/51 L 96 05/07/21 20:55 93 L 05/07/21 20:00 36.9 C 101 H 20 100/59 L 93 L - Problem List & Annotations (1) Acute and chronic respiratory failure SNOMED Code(s): 61450574 Code(s): J96.20 - ACUTE AND CHR RESP FAILURE, UNSP W HYPOXIA OR HYPERCAPNIA Status: Acute Priority: High Current Visit: Yes Qualifiers: Respiratory failure complication: hypoxia and hypercapnia Qualified Code(s): J96.21 - Acute and chronic respiratory failure with hypoxia; J96.22 - Acute and chronic respiratory failure with hypercapnia (2) COPD with exacerbation SNOMED Code(s): 417527527 Code(s): J44.1 - CHRONIC OBSTRUCTIVE PULMONARY DISEASE W (ACUTE) EXACERBATION Status: Chronic Priority: High Current Visit: Yes (3) Hypercapnia SNOMED Code(s): 74626191 Code(s): R06.89 - OTHER ABNORMALITIES OF BREATHING Status: Chronic Priority: High Current Visit: Yes (4) Hypoxemia SNOMED Code(s): 277109621 Code(s): R09.02 - HYPOXEMIA Status: Chronic Priority: High Current Visit: Yes (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 SNOMED Code(s): 610562897 Code(s): J44.9 - CHRONIC OBSTRUCTIVE PULMONARY DISEASE, UNSPECIFIED; R64 - [place] Status: Chronic Priority: High Current Visit: Yes (6) Severe protein-calorie malnutrition SNOMED Code(s): 300633575, 832699957, 172279928 Code(s): E43 - UNSPECIFIED SEVERE PROTEIN-CALORIE MALNUTRITION Status: Chronic Priority: High Current Visit: Yes (7) Tobacco dependence SNOMED Code(s): 46484489 Code(s): F17.200 - NICOTINE DEPENDENCE, UNSPECIFIED, UNCOMPLICATED Status: Chronic Priority: High Current Visit: Yes - Problem List Review Problem List Initiated/Reviewed/Updated: Yes - My Orders Last 24 Hours: My Active Orders 05/07/21 09:00 Remove Patch 1 ea TRDERM DAILY 05/07/21 09:22 Acetaminophen/HYDROcodone [[place] 325-10 MG] 1 tab PO Q4H PRN 05/07/21 21:00 Mirtazapine [Remeron] 7.5 mg PO BEDTIME - Assessment Assessment:: The patient is a 61-year-old lady who will remain in ICU due to severe oxygen demands. The patient is also on telemetry and continuous pulse oximetry. The patient's oxygen demand will be adjusted to keep her saturations around 90%. The patient is a CO2 retainer and oxygen should be kept relatively low. The patient also will be continued with her ceftriaxone and steroids. Breathing treatments duo nebs inhaled every 4 hours or as needed per respiratory therapy. Dietary has been consulted. This was due to the patient's severe protein calorie malnutrition as well as pulmonary cachexia. Dr. Tovar has been managing her chest tube. The patient will be afforded Ativan as necessary for anxiety due to BiPAP. PT OT will be ordered for the patient. The patient will need to have to follow-up with her pulmonary/adult basic education manager on eventual discharge. The patient may be appropriate for discharge in 4 to 5 days. Her prognosis is guarded. 05/07/2021 The patient is a 61-year-old lady who is currently in ICU due to severe COPD exacerbation and high oxygen demands. The patient's oxygen will be continued to keep her saturations around 90%. The patient is a chronic CO2 retainer. Repeat laboratory studies have been ordered. We will continue nebulizer treatments every 4 hours or as needed per RT. She will continue on the ceftriaxone and steroids. The patient is also been evaluated by a dietitian and her diet will be augmented with protein supplement. PT OT is also been ordered. I have discontinued the patient's oxycodone and placed her on hydrocodone/acetaminophen 10/325 mg 1 every 4 hours as needed for pain. DVT prophylaxis is been initiated with heparin 5000 units subcu every 8 hours. The patient is also being followed by surgeon, Dr. Tovar, with regards to her pleural effusion and subsequent pneumothorax. The patient also had been counseled with regards to smoking sensation. I had also discussed with the patient concern for malignancy as a source of the pleural effusion. Currently awaiting malignancy screening of the pleural fluid. Pleural fluid was transu date of in nature by lights criteria. The patient should be appropriate for downgrade from ICU in 1 day and possible discharge in 2 to 3 days. 05/08/2021 The patient is a 61-year-old lady who will be downgraded from intensive care. She will continue on oxygen to keep her supports around 90%. The patient is also a chronic CO2 retainer and she has been previously fully compensated by [employer] formula. The patient will be kept on her steroids and ceftriaxone 1 g IV every 24 hours. Repeat laboratory studies have been ordered. Chest x-ray will be ordered tomorrow to check on the patient's pleural effusion as well as pneumothorax. She will also have her regular diet as tolerated and as augmented by dietitian. The patient also has DVT prophylaxis with use of heparin 5000 units subcu every 8 hours. The patient may be appropriate for discharge in 2 to 3 days. She has been encouraged to ambulate as well as setting up for dinners. - Plan Plan:: The patient is a 61-year-old lady who has been admitted to the intensive care unit as an inpatient with acute on chronic hypoxic respiratory failure. The patient does have a history of COPD and she will be treated for exacerbation with Rocephin 1 g IV every 24 hours along with Solu-Medrol 120 mg every 8 hours. The patient also will be placed on BiPAP as necessary and oxygen support to help keep her saturations around 92%. Because of the patient's pulmonary cachexia I have ordered a dietary consult as she is also severely protein malnourished. The patient's recorded weight is 36.2 kg. The patient will have DVT prophylaxis with the use of heparin 5000 units subcu every 8 hours. I have also ordered the patient to have a regular diet as tolerated. She will be kept on telemetry and continuous pulse oximetry. I have also ordered a nicotine patch 14 mg daily for the patient. I have advised the patient of my concern with regards to intubation and that if this happened likely she would be transferred to tertiary care center. For now we will continue with DuoNeb treatments every 4 hours as needed for shortness of breath or wheezing every 4 hours as per RT or as needed. I had discussed the case with surgeon on-call who feels that the pleural effusion may not be appropriate to aspirate here. The patient will likely need to have this aspirated at some point in time. I have also ordered a CT scan to help exclude malignancy associated effusion. Overall the patient's prognosis is poor. She is in a full resuscitation code. She should be appropriate for discharge after improvement of her symptoms and antibiotic treatment in 4 to 5 days.
[2021-05-08] MEDS: Nicotine 14 MG/24 Hr Patch TRDERM SCH (07:59)
[2021-05-08] MEDS: Acetaminophen/HYDROcodone 325-10 MG Tab PO PRN (20:28)
[2021-05-08] MEDS: Mirtazapine 15 MG Tab PO SCH (20:28)
[2021-05-08] MEDS: cefTRIAXone 1 GM in Sodium Chloride 0.9% 100 ML IV SCH (20:29)
[2021-05-08] MEDS: Sodium Chloride 0.9% 1,000 ML IV SCH (21:08)
[2021-05-09] MEDS: methylPREDNISolone Sodium Succinate 125 MG/2 ML SDV IVPUSH SCH ×3 (00:27→15:22)
[2021-05-09] MEDS: Heparin Sodium 5,000 Units/ML Vial SUBCUT SCH ×3 (03:06→18:48)
[2021-05-09] MEDS: Albuterol/Ipratropium 3.0-0.5 MG/3 ML Neb Soln NEB PRN (07:43)
[2021-05-09] MEDS: Nicotine 14 MG/24 Hr Patch TRDERM SCH (08:05)
[2021-05-09] MEDS: Acetaminophen/HYDROcodone 325-10 MG Tab PO PRN ×3 (08:24→20:17)
[2021-05-09] MEDS ORDERED: guaiFENesin 600 MG Tab.ER PO PRN (08:44)
[2021-05-09] MEDS ORDERED: guaiFENesin 600 MG Tab.ER PO SCH (09:00)
--- NOTE | 2021-05-09 10:17 | CR ---
Chest: Portable view of the chest was obtained. Comparison: Prior chest x-ray of 05/07/21. Heart size and mediastinum are within normal limits for portable technique. Increasing density is noted within the left lung base from prior chest x-ray. Small increasing pleural effusion within the left base is also noted. Diffuse interstitial change is seen which is stable. Slight blunting of the right lateral costophrenic angle is noted which is stable. Bony structures are osteopenic. Scattered degenerative change is seen within the spine. Impression: 1. Slightly increased size of left-sided pleural effusion with increased parenchymal density within the left lung base from prior chest x-ray. 2. Other findings as described above which are stable from prior chest x-ray. Diagnostic code #3
--- NOTE | 2021-05-09 17:14 | PCM.PN ---
- General Info Date of Service: 05/09/21 Admission Dx/Problem (Free Text): Admission Diagnosis/Problem Admission Diagnosis/Problem COPD, Severe chronic obstructive pulmonary disease Subjective Update: The patient is a 61-year-old lady who was admitted to acute hospitalization in the intensive care unit on May 05, 2021. She was evaluated early this morning. This was due to severe COPD exacerbation and acute on chronic respiratory failure. The patient has been moved out of ICU status. The patient today has exhibited marked improvement. She has been breathing better. She has been eating better. The patient has had some significant improvement. Functional Status: Reports: Pain Controlled, Tolerating Diet - Review of Systems General: Reports: Weakness HEENT: Reports: No Symptoms Pulmonary: Reports: Shortness of Breath Cardiovascular: Reports: No Symptoms Gastrointestinal: Reports: No Symptoms Genitourinary: Reports: No Symptoms Musculoskeletal: Reports: No Symptoms Skin: Reports: No Symptoms Neurological: Reports: No Symptoms Psychiatric: Reports: No Symptoms - Patient Data Vitals - Most Recent: Last Vital Signs Temp 36.7 C 05/09/21 12:00 Pulse 95 05/09/21 12:00 Resp 20 05/09/21 12:00 BP 130/72 05/09/21 12:00 Pulse Ox 91 L 05/09/21 12:00 Weight - Most Recent: 40.914 kg I&O - Last 24 Hours: Intake & Output 05/09/21 05/09/21 05/09/21 06:59 14:59 22:59 Intake Total 1597 660 Output Total 600 Balance 997 660 Lab Results Last 24 Hours: Laboratory Results - last 24 hr 05/09/21 05/09/21 Range/Units 05:40 05:40 WBC 10.91 H (3.98-10.04) K/mm3 RBC 3.84 L (3.98-5.22) M/mm3 Hgb 11.3 (11.2-15.7) gm/dl Hct 39.6 (34.1-44.9) % MCV 103.1 H (79.4-94.8) fl MCH 29.4 (25.6-32.2) pg MCHC 28.5 L (32.2-35.5) g/dl RDW Std Deviation 48.0 H (36.4-46.3) fL Plt Count 228 (182-369) K/mm3 MPV 9.4 (9.4-12.3) fl Neut % (Auto) 92.9 H (34.0-71.1) % Lymph % (Auto) 2.9 L (19.3-51.7) % Wallace % (Auto) 3.0 L (4.7-12.5) % Eos % (Auto) 0 L (0.7-5.8) Baso % (Auto) 0.1 (0.1-1.2) % Neut # (Auto) 10.13 H (1.56-6.13) K/mm3 Lymph # (Auto) 0.32 L (1.18-3.74) K/mm3 Wallace # (Auto) 0.33 (0.24-0.36) K/mm3 Eos # (Auto) 0.00 L (0.04-0.36) K/mm3 Baso # (Auto) 0.01 (0.01-0.08) K/mm3 Manual Slide Review Abnormal smear Sodium 146 H (136-145) mEq/L Potassium 4.4 (3.5-5.1) mEq/L Chloride 104 (98-107) mEq/L Carbon Dioxide 44 H* (21-32) mEq/L Anion Gap 2.4 L (5-15) BUN 18 (7-18) mg/dL Creatinine 0.2 L (0.55-1.02) mg/dL Est Cr Clr Drug Dosing 188.37 mL/min Estimated GFR (MDRD) > 60 (>60) mL/min BUN/Creatinine Ratio 90.0 H (14-18) Glucose 117 H (70-99) mg/dL Calcium 7.8 L (8.5-10.1) mg/dL Magnesium 2.0 (1.8-2.4) mg/dL Med Orders - Current: Current Medications Acetaminophen (Acetaminophen 325 Mg Tab) 650 mg PO Q4H PRN PRN Reason: Pain (Mild 1-3)/fever Hydrocodone Bitart/Acetaminophen (Acetaminophen/Hydrocodone 325-10 Mg Tab) 1 tab PO Q4H PRN PRN Reason: Pain (moderate 4-6) Last Admin: 05/09/21 15:22 Dose: 1 tab Documented by: Albuterol/Ipratropium (Albuterol/Ipratropium 3.0-0.5 Mg/3 Ml Neb Soln) 3 ml NEB Q4HRRT PRN PRN Reason: Wheezing Last Admin: 05/09/21 07:43 Dose: 3 ml Documented by: Docusate Sodium (Docusate Sodium 100 Mg Cap) 100 mg PO BID PRN PRN Reason: Constipation Guaifenesin (Guaifenesin 600 Mg Tab.Er) 600 mg PO BID PRN PRN Reason: Congestion Last Admin: 05/09/21 08:51 Dose: 600 mg Documented by: Heparin Sodium (Porcine) (Heparin Sodium 5,000 Units/Ml Vial) 5,000 units SUBCUT Q8H [facility] Last Admin: 05/09/21 10:47 Dose: 5,000 units Documented by: Ceftriaxone Sodium 1 gm/ (Sodium Chloride) 100 mls @ 200 mls/hr IV Q24H [facility] Last Admin: 05/08/21 20:29 Dose: 200 mls/hr Documented by: Sodium Chloride (Normal Saline) 1,000 mls @ 40 mls/hr IV ASDIRECTED [facility] Last Admin: 05/08/21 21:08 Dose: 40 mls/hr Documented by: Lorazepam (Lorazepam 2 Mg/Ml Sdv) 0.5 mg IVPUSH Q4H PRN PRN Reason: Agitation Last Admin: 05/05/21 17:18 Dose: 0.5 mg Documented by: Methylprednisolone Sodium Succinate (Methylprednisolone Sodium Succinate 125 Mg/2 Ml Sdv) 125 mg IVPUSH Q8H [facility] Last Admin: 05/09/21 15:22 Dose: 125 mg Documented by: Mirtazapine (Mirtazapine 15 Mg Tab) 7.5 mg PO BEDTIME [facility] Last Admin: 05/08/21 20:28 Dose: 7.5 mg Documented by: Miscellaneous Information (Remove Nicotine Patch) 1 ea TRDERM DAILY [facility] Last Admin: 05/09/21 08:05 Dose: 1 ea Documented by: Nicotine (Nicotine 14 Mg/24 Hr Patch) 14 mg TRDERM DAILY [facility] Last Admin: 05/09/21 08:05 Dose: 14 mg Documented by: Ondansetron HCl (Ondansetron 4 Mg Tab.Dis) 4 mg PO Q4H PRN PRN Reason: nausea, able to take PO Last Admin: 05/07/21 21:20 Dose: 4 mg Documented by: Discontinued Medications Albuterol/Ipratropium (Albuterol/Ipratropium 3.0-0.5 Mg/3 Ml Neb Soln) 3 ml NEB ONETIME ONE Stop: 05/05/21 03:31 Last Admin: 05/05/21 03:44 Dose: 3 ml Documented by: Furosemide (Furosemide 20 Mg/2 Ml Vial) 20 mg IVPUSH ONETIME ONE Stop: 05/06/21 08:00 Last Admin: 05/06/21 08:39 Dose: 20 mg Documented by: Guaifenesin (Guaifenesin 600 Mg Tab.Er) 600 mg PO BID [facility] Heparin Sodium (Porcine) (Heparin Sodium 5,000 Units/Ml Vial) 5,000 units SUBCUT Q8H [facility] Last Admin: 05/05/21 17:14 Dose: Not Given Documented by: Ceftriaxone Sodium 1 gm/ (Sodium Chloride) 100 mls @ 200 mls/hr IV ONETIME ONE Stop: 05/05/21 01:33 Last Admin: 05/05/21 01:10 Dose: 200 mls/hr Documented by: Azithromycin 500 mg/ Sodium (Chloride) 250 mls @ 250 mls/hr IV ONETIME ONE Stop: 05/05/21 04:31 Last Admin: 05/05/21 03:41 Dose: 250 mls/hr Documented by: Sodium Chloride (Normal Saline) 1,000 mls @ 150 mls/hr IV ASDIRECTED [facility] Last Admin: 05/05/21 05:22 Dose: 150 mls/hr Documented by: Methylprednisolone Sodium Succinate 70 mg/ Sodium Chloride 250.56 mls @ 250.56 mls/hr IV ONETIME ONE Stop: 05/05/21 06:46 Last Admin: 05/05/21 07:55 Dose: Not Given Documented by: Azithromycin 500 mg/ Sodium (Chloride) 250 mls @ 250 mls/hr IV Q24H [facility] Sodium Chloride (Normal Saline) 45 mls @ 40 mls/hr IV ASDIRECTED [facility] Last Admin: 05/05/21 09:53 Dose: 40 mls/hr Documented by: Ceftriaxone Sodium 1 gm/ (Sodium Chloride) 100 mls @ 200 mls/hr IV Q24H [facility] Iopamidol (Iopamidol 755 Mg/Ml 100 Ml Bottle) 100 ml IVPUSH ONETIME ONE Stop: 05/05/21 08:57 Last Admin: 05/05/21 09:53 Dose: 100 ml Documented by: Morphine Sulfate (Morphine 2 Mg/Ml Syringe) 2 mg IVPUSH Q2H PRN PRN Reason: Pain (severe 7-10) Stop: 05/06/21 08:48 Last Admin: 05/05/21 21:18 Dose: 2 mg Documented by: Oxycodone HCl (Oxycodone 5 Mg Tab) 5 mg PO Q4H PRN PRN Reason: Pain (moderate 4-6) Last Admin: 05/07/21 04:22 Dose: 5 mg Documented by: Sodium Chloride (Sodium Chloride 0.9% 10 Ml Syringe) 10 ml FLUSH ASDIRECTED PRN PRN Reason: Keep Vein Open Last Admin: 05/04/21 23:43 Dose: 10 ml Documented by: Sodium Chloride (Sodium Chloride 0.9% 10 Ml Syringe) 10 ml FLUSH ONETIME PRN PRN Reason: Keep Vein Open Last Admin: 05/05/21 09:53 Dose: 10 ml Documented by: - Exam Quality Assessment: Supplemental Oxygen, DVT Prophylaxis General: Alert, Oriented, Cooperative HEENT: Pupils Equal, Pupils Reactive, EOMI, Mucous Membr. Moist/[place] Neck: Supple, Trachea Midline Lungs: Decreased Breath Sounds (Globally), Crackles Cardiovascular: Regular Rate, Regular Rhythm, Other (Stiff thorax, increased AP diameter) GI/Abdominal Exam: Normal Bowel Sounds, Soft, Non-Tender, No Distention (Female) Exam: Deferred Back Exam: Normal Inspection (Kyphosis) Extremities: Normal Inspection, No Pedal Edema Skin: Warm, Dry, Intact Neurological: No New Focal Deficit Psy/Mental Status: Alert, Normal Affect, Normal Mood - Patient Data Lab Results Last 24 hrs: Laboratory Results - last 24 hr 05/09/21 05/09/21 Range/Units 05:40 05:40 WBC 10.91 H (3.98-10.04) K/mm3 RBC 3.84 L (3.98-5.22) M/mm3 Hgb 11.3 (11.2-15.7) gm/dl Hct 39.6 (34.1-44.9) % MCV 103.1 H (79.4-94.8) fl MCH 29.4 (25.6-32.2) pg MCHC 28.5 L (32.2-35.5) g/dl RDW Std Deviation 48.0 H (36.4-46.3) fL Plt Count 228 (182-369) K/mm3 MPV 9.4 (9.4-12.3) fl Neut % (Auto) 92.9 H (34.0-71.1) % Lymph % (Auto) 2.9 L (19.3-51.7) % Wallace % (Auto) 3.0 L (4.7-12.5) % Eos % (Auto) 0 L (0.7-5.8) Baso % (Auto) 0.1 (0.1-1.2) % Neut # (Auto) 10.13 H (1.56-6.13) K/mm3 Lymph # (Auto) 0.32 L (1.18-3.74) K/mm3 Wallace # (Auto) 0.33 (0.24-0.36) K/mm3 Eos # (Auto) 0.00 L (0.04-0.36) K/mm3 Baso # (Auto) 0.01 (0.01-0.08) K/mm3 Manual Slide Review Abnormal smear Sodium 146 H (136-145) mEq/L Potassium 4.4 (3.5-5.1) mEq/L Chloride 104 (98-107) mEq/L Carbon Dioxide 44 H* (21-32) mEq/L Anion Gap 2.4 L (5-15) BUN 18 (7-18) mg/dL Creatinine 0.2 L (0.55-1.02) mg/dL Est Cr Clr Drug Dosing 188.37 mL/min Estimated GFR (MDRD) > 60 (>60) mL/min BUN/Creatinine Ratio 90.0 H (14-18) Glucose 117 H (70-99) mg/dL Calcium 7.8 L (8.5-10.1) mg/dL Magnesium 2.0 (1.8-2.4) mg/dL Result Diagrams: 05/09/21 05:40 05/09/21 05:40 Sepsis Event Note - Evaluation Sepsis Screening Result: Possible Sepsis Risk - Focused Exam Vital Signs: Vital Signs Temp Pulse Resp BP Pulse Ox Pulse Ox 05/09/21 12:00 36.7 C 95 20 130/72 91 L 05/09/21 07:49 91 L 05/09/21 07:44 36.6 C 95 20 135/77 92 L 93 L 05/09/21 05:40 91 L - Problem List & Annotations (1) Acute and chronic respiratory failure SNOMED Code(s): 26287078 Code(s): J96.20 - ACUTE AND CHR RESP FAILURE, UNSP W HYPOXIA OR HYPERCAPNIA Status: Acute Priority: High Current Visit: Yes Qualifiers: Respiratory failure complication: hypoxia and hypercapnia Qualified Cod e(s): J96.21 - Acute and chronic respiratory failure with hypoxia; J96.22 - Acute and chronic respiratory failure with hypercapnia (2) COPD with exacerbation SNOMED Code(s): 562020627 Code(s): J44.1 - CHRONIC OBSTRUCTIVE PULMONARY DISEASE W (ACUTE) EXACERBATION Status: Chronic Priority: High Current Visit: Yes (3) Hypercapnia SNOMED Code(s): 51709224 Code(s): R06.89 - OTHER ABNORMALITIES OF BREATHING Status: Chronic Prior ity: High Current Visit: Yes (4) Hypoxemia SNOMED Code(s): 111673653 Code(s): R09.02 - HYPOXEMIA Status: Chronic Priority: High Current Visit: Yes (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 SNOMED Code(s): 959267463 Code(s): J44.9 - CHRONIC OBSTRUCTIVE PULMONARY DISEASE, UNSPECIFIED; R64 - [place] Status: Chronic Priority: High Current Visit: Yes (6) Severe protein-calorie malnutrition SNOMED Code(s): 354391007, 884153089, 619873204 Code(s): E43 - UNSPECIFIED SEVERE PROTEIN-CALORIE MALNUTRITION Status: Chronic Priority: High Current Visit: Yes (7) Tobacco dependence SNOMED Code(s): 62159567 Code(s): F17.200 - NICOTINE DEPENDENCE, UNSPECIFIED, UNCOMPLICATED Status: Chronic Priority: High Current Visit: Yes - Problem List Review Problem List Initiated/Reviewed/Updated: Yes - My Orders Last 24 Hours: My Active Orders 05/09/21 08:27 Acapella [RT Chest Physiotherapy] [RC] ASDIRECTED 05/09/21 08:44 guaiFENesin [Mucinex] 600 mg PO BID PRN - Assessment Assessment:: The patient is a 61-year-old lady who will remain in ICU due to severe oxygen demands. The patient is also on telemetry and continuous pulse oximetry. The patient's oxygen demand will be adjusted to keep her saturations around 90%. The patient is a CO2 retainer and oxygen should be kept relatively low. The patient also will be continued with her ceftriaxone and steroids. Breathing treatments duo nebs inhaled every 4 hours or as needed per respiratory therapy. Dietary has been consulted. This was due to the patient's severe protein calorie malnutrition as well as pulmonary cachexia. Dr. Tovar has been managing her chest tube. The patient will be afforded Ativan as necessary for anxiety due to BiPAP. PT OT will be ordered for the patient. The patient will need to have to follow-up with her pulmonary/sorter packer on eventual discharge. The patient may be appropriate for discharge in 4 to 5 days. Her prognosis is guarded. 05/07/2021 The patient is a 61-year-old lady who is currently in ICU due to severe COPD exacerbation and high oxygen demands. The patient's oxygen will be continued to keep her saturations around 90%. The patient is a chronic CO2 retainer. Repeat laboratory studies have been ordered. We will continue nebulizer treatments every 4 hours or as needed per RT. She will continue on the ceftriaxone and steroids. The patient is also been evaluated by a dietitian and her diet will be augmented with protein supplement. PT OT is also been ordered. I have discontinued the patient's oxycodone and placed her on hydrocodone/acetaminophen 10/325 mg 1 every 4 hours as needed for pain. DVT prophylaxis is been initiated with heparin 5000 units subcu every 8 hours. The patient is also being followed by surgeon, Dr. Tovar, with regards to her pleural effusion and subsequent pneumothorax. The patient also had been counseled with regards to smoking sensation. I had also discussed with the patient concern for malignancy as a source of the pleural effusion. Currently awaiting malignancy screening of the pleural fluid. Pleural fluid was transudate of in nature by lights criteria. The patient should be appropriate for downgrade from ICU in 1 day and possible discharge in 2 to 3 days. 05/08/2021 The patient is a 61-year-old lady who will be downgraded from intensive care. She will continue on oxygen to keep her supports around 90%. The patient is also a chronic CO2 retainer and she has been previously fully compensated by [employer]. The patient will be kept on her steroids and ceftriaxone 1 g IV every 24 hours. Repeat laboratory studies have been ordered. Chest x-ray will be ordered tomorrow to check on the patient's pleural effusion as well as pneumothorax. She will also have her regular diet as tolerated and as augmented by dietitian. The patient also has DVT prophylaxis with use of heparin 5000 units subcu every 8 hours. The patient may be appropriate for discharge in 2 to 3 days. She has been encouraged to ambulate as well as setting up for dinners. 05/09/2021 The patient is a 61-year-old lady who is done remarkably well with her current treatment. The antibiotic and steroids to be continued. Oxygen support will continue to keep her saturations around 90 to 92%. The patient is a chronically hypercapnic state and has been compensated so increasing oxygen above 92% will not be helpful. The patient will also continue with her diet as tolerated. She has been encouraged to ambulate. The patient's DVT prophylaxis will continue with the heparin 5000 units subcu every 8 hours. The patient may be appropriate for discharge tomorrow if her oxygen baseline is back to her normal 4 L via nasal cannula. Previously noted pleural fluid did not show signs of malignancy however this is not totally excluded and the patient has informed me that she is pending a PET scan. She will need to follow-up with her freight agent upon discharge. The patient will be on steroids and these can be discontinued as her freight agent directs. - Plan Plan:: The patient is a 61-year-old lady who has been admitted to the intensive care unit as an inpatient with acute on chronic hypoxic respiratory failure. The patient does have a history of COPD and she will be treated for exacerbation with Rocephin 1 g IV every 24 hours along with Solu-Medrol 120 mg every 8 hours. The patient also will be placed on BiPAP as necessary and oxygen support to help keep her saturations around 92%. Because of the patient's pulmonary cachexia I have ordered a dietary consult as she is also severely protein malnourished. The patient's recorded weight is 36.2 kg. The patient will have DVT prophylaxis with the use of heparin 5000 units subcu every 8 hours. I have also ordered the patient to have a regular diet as tolerated. She will be kept on telemetry and continuous pulse oximetry. I have also ordered a nicotine patch 14 mg daily for the patient. I have advised the patient of my concern with regards to intubation and that if this happened likely she would be transferred to tertiary care center. For now we will continue with DuoNeb treatments every 4 hours as needed for shortness of breath or wheezing every 4 hours as per RT or as needed. I had discussed the case with surgeon on-call who feels that the pleural effusion may not be appropriate to aspirate here. The patient will likely need to have this aspirated at some point in time. I have also ordered a CT scan to help exclude malignancy associated effusion. Overall the patient's prognosis is poor. She is in a full resuscitation code. She should be appropriate for discharge after improvement of her symptoms and antibiotic treatment in 4 to 5 days.
[2021-05-09] MEDS: cefTRIAXone 1 GM in Sodium Chloride 0.9% 100 ML IV SCH (20:10)
[2021-05-09] MEDS: Mirtazapine 15 MG Tab PO SCH (20:10)
[2021-05-09] MEDS: Sodium Chloride 0.9% 1,000 ML IV SCH (20:10)
[2021-05-10] MEDS: methylPREDNISolone Sodium Succinate 125 MG/2 ML SDV IVPUSH SCH ×2 (00:01→08:26)
[2021-05-10] MEDS: Heparin Sodium 5,000 Units/ML Vial SUBCUT SCH (02:22)
[2021-05-10] MEDS: Acetaminophen/HYDROcodone 325-10 MG Tab PO PRN (04:02)
--- NOTE | 2021-05-10 07:14 | PCM.DCSUM1 ---
Discharge Summary - Hospital Course HPI Initial Comments: The patient was admitted secondary to acute on chronic respiratory failure and severe COPD exacerbation. She was admitted to the intensive care unit for close care. Diagnosis: Stroke: No - Discharge Data Discharge Date: 05/10/21 Discharge Disposition: Home, W Home Health Agency 06 Condition: Good - Referral to Home Health Date of Face to Face Encounter: 05/10/21 Reason for Homebound Status: [id number] meeting was held with the patient today. The patient has the following diagnoses, acute on chronic respiratory failure, COPD exacerbation, hypoxemia, pulmonary cachexia, severe protein calorie malnutrition and please also see discharge summary for additional diagnoses. The patient needs home health care nursing services for skilled assessment, vital signs, disease education/management, disease progression education, medication education. Physical therapy will be needed for gait training, transfer training, safety education, neuromuscular reeducation, therapeutic exercise, balance training and equipment recommendations. Occupational Therapy will be needed for activities of daily living, balance training, functional mobility, safety education, therapeutic activities and therapeutic exercises. embalmer assistant for assistance with ADLs. The patient is currently homebound related to decreased activity tolerance, decreased level of endurance and the use of a front wheel walker along with oxygen. The patient will be followed by her primary care provider Vivian Loja. Primary Care Physician: Milli Loja NP Skilled Need: Physical and Occupational Therapy, MEDIA SPECIALIST assistance - Discharge Diagnosis/Problem(s) (1) Acute and chronic respiratory failure SNOMED Code(s): 47140052 ICD Code: J96.20 - ACUTE AND CHR RESP FAILURE, UNSP W HYPOXIA OR HYPERCAPNIA Status: Chronic Priority: High Qualifiers: Respiratory failure complication: hypoxia and hypercapnia Qualified Code(s): J96.21 - Acute and chronic respiratory failure with hypoxia; J96.22 - Acute and chronic respiratory failure with hypercapnia (2) COPD with exacerbation SNOMED Code(s): 208071863 ICD Code: J44.1 - CHRONIC OBSTRUCTIVE PULMONARY DISEASE W (ACUTE) EXACERBATION Status: Chronic Priority: High (3) Hypercapnia SNOMED Code(s): 92394594 ICD Code: R06.89 - OTHER ABNORMALITIES OF BREATHING Status: Chronic Priority: High (4) Hypoxemia SNOMED Code(s): 615770527 ICD Code: R09.02 - HYPOXEMIA Status: Chronic Priority: High (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 SNOMED Code(s): 535637238 ICD Code: J44.9 - CHRONIC OBSTRUCTIVE PULMONARY DISEASE, UNSPECIFIED; R64 - CACHEXIA Status: Chronic Priority: High (6) Severe protein-calorie malnutrition SNOMED Code(s): 595540378, 627955135, 996700560 ICD Code: E43 - UNSPECIFIED SEVERE PROTEIN-CALORIE MALNUTRITION Status: Chronic Priority: High (7) Tobacco dependence SNOMED Code(s): 10471755 ICD Code: F17.200 - NICOTINE DEPENDENCE, UNSPECIFIED, UNCOMPLICATED Status: Chronic Priority: High - Patient Summary/Data Operative Procedure(s) Performed: Thoracentesis and evacuation of pleural effusion. Consults: Consultations 05/05/21 08:45 Consult to Desktop Administrator [CONS] Routine Consult to Physician [CONS] Routine OT Evaluation and Treatment [CONS] Routine PT Evaluation and Treatment [CONS] Routine Hospital Course: The patient is a 61-year-old lady who was admitted to ICU acute hospitalization on May 05, 2021 due to acute on chronic respiratory failure and severe COPD exacerbation. The patient was also found to have mixed respiratory acidosis and metabolic acidosis on blood gas and she would be classified as a chronic CO2 retainer. The patient was found to be severely hypoxic and had been placed on high flow oxygen which did not help her and she needed to be placed on BiPAP in order to keep her saturations around 92%. It was noted that the patient was normally using home oxygen at 4 L/min via nasal cannula. Complicating the picture the patient had a rather large left-sided pleural effusion which required the services of general surgeon, Dr. Tovar, was on consult. The patient had subsequent thoracentesis which had been revealed to be transudate of in nature. Because of the patient's severe underlying lung disease she had have a chest tube for a short period of time to help resolve pneumothorax. This had completely resolved. The pleural fluid was also sent for flow cytometry and no malignant cells noted. Because of the patient's chronic smoking as well as her severe COPD primary lung neoplasm is not completely excluded. The patient does say that she has an appointment with pulmonology for a PET scan. The patient was started on Rocephin IV 1 g on a daily basis along with methylprednisolone at high dose of 125 mg IV every 8 hours. The patient was also placed on nicotine patch due to her recent smoking history. RT has been following the patient closely and the patient had instructed on how to use incentive spirometer and Acapella. The patient also had DuoNebs every 4 hours or as needed per respiratory therapy. The patient tolerated this well. The patient was also known to be very cachectic due to pulmonary disease and dietary has been consulted as well. The patient reported that she had been gaining weight during hospitalization. The patient had a prolonged recovery due to her severe underlying lung disease. Her oxygen demands have improved to the point that she was back at her baseline of 4 L via nasal cannula per minute. The patient had been evaluated via PT OT who had recommended home health. This had been arranged for her as she would need extensive help at home along with ambulation and her activities of daily living. The patient also had been given a prescription for nicotine patch 21 mg to apply daily. She has been strongly counseled with regards to smoking cessation as well as secondhand smoke exposure. The patient also had been given prescription for prednisone to take 40 mg p.o. daily for 7 days and then taper down to 10 mg and maintain this until followed up by pulmonology. The patient may likely need to have chronic steroid use. The patient also had been given a prescription for Spiriva Respimat to inhale daily to help prevent further exacerbations. The patient at time of discharge had been tolerating her diet. She has been recommended to continue with the diet as tolerated. The patient should have activity as tolerated with home PT OT. The patient also has been recommended to follow-up with her primary care physician in a timely fashion and with her pulmonology appointment as soon as possible. The patient has said that she feels like she can go home and she is hemodynamically stable and has been discharged from acute hospitalization with the recommendations listed above. The patient is to be considered at high risk for readmission due to her essentially end-stage COPD. - Patient Instructions Diet: Usual Diet as Tolerated Activity: As Tolerated - Discharge Plan *PRESCRIPTION DRUG MONITORING PROGRAM REVIEWED*: No *COPY OF PRESCRIPTION DRUG MONITORING REPORT IN PATIENT MALOU: No Prescriptions/Med Rec: Nicotine [Nicotine Patch] 21 mg TD DAILY #30 patch predniSONE 20 mg PO WITHBREAKFAST #23 tab Tiotropium [place] [Spiriva Respimat] 4 gm INH DAILY #1 spray.metp Tobacco Cessation Medication: Prescription Given Home Medications: Home Meds Hydrocodone/Acetaminophen [HYDROcodone-Acetaminophen 10-325 MG] 1 each PO Q6HR PRN 05/05/21 [History] Rosuvastatin [Crestor] 20 mg PO DAILY 05/05/21 [History] carisoprodoL [Carisoprodol] 350 mg PO BID PRN 05/05/21 [History] Albuterol Sulfate [Albuterol Sulfate HFA] 2 puff INH Q4H PRN 05/07/21 [History] Aspirin [Aspirin EC] 81 mg PO DAILY 05/07/21 [History] Clotrimazole [Mycelex] 10 mg PO 5XDAY 05/07/21 [History] Mirtazapine 7.5 mg PO BEDTIME 05/07/21 [History] Nicotine [Nicotine Patch] 21 mg TD DAILY #30 patch 05/10/21 [Rx] Tiotropium [place] [Spiriva Respimat] 4 gm INH DAILY #1 spray.metp 05/10/21 [Rx] predniSONE 20 mg PO WITHBREAKFAST #23 tab 05/10/21 [Rx] Oxygen Therapy Mode: Nasal Cannula Oxygen Flow Rate (L/min): 4 Patient Handouts: Chronic Obstructive Pulmonary Disease Exacerbation, [id number], Smoking Tobacco Information, Adult, Home Oxygen Use, Adult, Eating Plan for Chronic Obstructive Pulmonary Disease, COPD and Physical Activity, Steps to Quit Smoking Forms: ED Department Discharge Referrals: Milli Loja NP [Primary Care Provider] - 05/21/21 10:00 am (This is your appointment time, please come 15 minutes prior to the appointment to register.) Anika Patel PA-C [Ordering Only Provider] - 05/15/21 2:30 pm (Lucio Correia will out of the office so you will follow up with Anika Patel. Please arrive at 2:15 Central time. This appt. is in [place]) - Discharge Summary/Plan Comment DC Time >30 min.: Yes Total # of Minutes for Discharge Time: 55 - General Info Date of Service: 05/10/21 Admission Dx/Problem (Free Text: Admission Diagnosis/Problem Admission Diagnosis/Problem COPD, Severe chronic obstructive pulmonary disease Subjective Update: The patient was able to eat breakfast. She has been tolerating her diet. The patient has denied any pain. She is back at her baseline oxygen. She has said that she feels like she can go home safely. She has home health arranged. Functional Status: Reports: Pain Controlled, Tolerating Diet - Review of Systems General: Reports: Weakness, Fatigue HEENT: Reports: No Symptoms Pulmonary: Reports: Shortness of Breath, Cough Cardiovascular: Reports: No Symptoms Gastrointestinal: Reports: No Symptoms Genitourinary: Reports: No Symptoms Musculoskeletal: Reports: No Symptoms Skin: Reports: No Symptoms Neurological: Reports: No Symptoms Psychiatric: Reports: No Symptoms - Patient Data Vitals - Most Recent: Last Vital Signs Temp 36.6 C 05/10/21 04:00 Pulse 104 H 05/09/21 16:00 Resp 18 05/10/21 04:00 BP 125/64 05/10/21 04:00 Pulse Ox 96 05/10/21 04:00 Weight - Most Recent: 40.994 kg I&O - Last 24 hours: Intake & Output 05/09/21 05/10/21 05/10/21 22:59 06:59 14:59 Intake Total 1891 550 Output Total 950 800 Balance 941 -250 Lab Results - Last 24 hrs: Laboratory Results - last 24 hr 05/09/21 05/10/21 Range/Units 05:40 05:55 WBC 12.41 H (3.98-10.04) K/mm3 RBC 3.85 L (3.98-5.22) M/mm3 Hgb 11.4 (11.2-15.7) gm/dl Hct 39.2 (34.1-44.9) % MCV 101.8 H (79.4-94.8) fl MCH 29.6 (25.6-32.2) pg MCHC 29.1 L (32.2-35.5) g/dl RDW Std Deviation 46.4 H (36.4-46.3) fL Plt Count 244 (182-369) K/mm3 MPV 9.5 (9.4-12.3) fl Neut % (Auto) 93.2 H (34.0-71.1) % Lymph % (Auto) 2.2 L (19.3-51.7) % Bee % (Auto) 3.5 L (4.7-12.5) % Eos % (Auto) 0 L (0.7-5.8) Baso % (Auto) 0.1 (0.1-1.2) % Neut # (Auto) 11.58 H (1.56-6.13) K/mm3 Lymph # (Auto) 0.27 L (1.18-3.74) K/mm3 Bee # (Auto) 0.43 H (0.24-0.36) K/mm3 Eos # (Auto) 0.00 L (0.04-0.36) K/mm3 Baso # (Auto) 0.01 (0.01-0.08) K/mm3 Sodium 146 H (136-145) mEq/L Potassium 4.4 (3.5-5.1) mEq/L Chloride 104 (98-107) mEq/L Carbon Dioxide 44 H* (21-32) mEq/L Anion Gap 2.4 L (5-15) BUN 18 (7-18) mg/dL Creatinine 0.2 L (0.55-1.02) mg/dL Est Cr Clr Drug Dosing 188.37 mL/min Estimated GFR (MDRD) > 60 (>60) mL/min BUN/Creatinine Ratio 90.0 H (14-18) Glucose 117 H (70-99) mg/dL Calcium 7.8 L (8.5-10.1) mg/dL Magnesium 2.0 (1.8-2.4) mg/dL Med Orders - Current: Current Medications Acetaminophen (Acetaminophen 325 Mg Tab) 650 mg PO Q4H PRN PRN Reason: Pain (Mild 1-3)/fever Hydrocodone Bitart/Acetaminophen (Acetaminophen/Hydrocodone 325-10 Mg Tab) 1 tab PO Q4H PRN PRN Reason: Pain (moderate 4-6) Last Admin: 05/10/21 04:02 Dose: 1 tab Documented by: Albuterol/Ipratropium (Albuterol/Ipratropium 3.0-0.5 Mg/3 Ml Neb Soln) 3 ml NEB Q4HRRT PRN PRN Reason: Wheezing Last Admin: 05/09/21 07:43 Dose: 3 ml Documented by: Docusate Sodium (Docusate Sodium 100 Mg Cap) 100 mg PO BID PRN PRN Reason: Constipation Guaifenesin (Guaifenesin 600 Mg Tab.Er) 600 mg PO BID PRN PRN Reason: Congestion Last Admin: 05/09/21 08:51 Dose: 600 mg Documented by: Heparin Sodium (Porcine) (Heparin Sodium 5,000 Units/Ml Vial) 5,000 units SUBCUT Q8H [facility] Last Admin: 05/10/21 02:22 Dose: 5,000 units Documented by: Ceftriaxone Sodium 1 gm/ (Sodium Chloride) 100 mls @ 200 mls/hr IV Q24H [facility] Last Admin: 05/09/21 20:10 Dose: 200 mls/hr Documented by: Sodium Chloride (Normal Saline) 1,000 mls @ 40 mls/hr IV ASDIRECTED [facility] Last Admin: 05/09/21 20:10 Dose: 40 mls/hr Documented by: Lorazepam (Lorazepam 2 Mg/Ml Sdv) 0.5 mg IVPUSH Q4H PRN PRN Reason: Agitation Last Admin: 05/05/21 17:18 Dose: 0.5 mg Documented by: Methylprednisolone Sodium Succinate (Methylprednisolone Sodium Succinate 125 Mg/2 Ml Sdv) 125 mg IVPUSH Q8H [facility] Last Admin: 05/10/21 00:01 Dose: 125 mg Documented by: Mirtazapine (Mirtazapine 15 Mg Tab) 7.5 mg PO BEDTIME [facility] Last Admin: 05/09/21 20:10 Dose: 7.5 mg Documented by: Miscellaneous Information (Remove Nicotine Patch) 1 ea TRDERM DAILY [facility] Last Admin: 05/09/21 08:05 Dose: 1 ea Documented by: Nicotine (Nicotine 14 Mg/24 Hr Patch) 14 mg TRDERM DAILY [facility] Last Admin: 05/09/21 08:05 Dose: 14 mg Documented by: Ondansetron HCl (Ondansetron 4 Mg Tab.Dis) 4 mg PO Q4H PRN PRN Reason: nausea, able to take PO Last Admin: 05/07/21 21:20 Dose: 4 mg Documented by: Discontinued Medications Albuterol/Ipratropium (Albuterol/Ipratropium 3.0-0.5 Mg/3 Ml Neb Soln) 3 ml NEB ONETIME ONE Stop: 05/05/21 03:31 Last Admin: 05/05/21 03:44 Dose: 3 ml Documented by: Furosemide (Furosemide 20 Mg/2 Ml Vial) 20 mg IVPUSH ONETIME ONE Stop: 05/06/21 08:00 Last Admin: 05/06/21 08:39 Dose: 20 mg Documented by: Guaifenesin (Guaifenesin 600 Mg Tab.Er) 600 mg PO BID [facility] Heparin Sodium (Porcine) (Heparin Sodium 5,000 Units/Ml Vial) 5,000 units SUBCUT Q8H [facility] Last Admin: 05/05/21 17:14 Dose: Not Given Documented by: Ceftriaxone Sodium 1 gm/ (Sodium Chloride) 100 mls @ 200 mls/hr IV ONETIME ONE Stop: 05/05/21 01:33 Last Admin: 05/05/21 01:10 Dose: 200 mls/hr Documented by: Azithromycin 500 mg/ Sodium (Chloride) 250 mls @ 250 mls/hr IV ONETIME ONE Stop: 05/05/21 04:31 Last Admin: 05/05/21 03:41 Dose: 250 mls/hr Documented by: Sodium Chloride (Normal Saline) 1,000 mls @ 150 mls/hr IV ASDIRECTED [facility] Last Admin: 05/05/21 05:22 Dose: 150 mls/hr Documented by: Methylprednisolone Sodium Succinate 70 mg/ Sodium Chloride 250.56 mls @ 250.56 mls/hr IV ONETIME ONE Stop: 05/05/21 06:46 Last Admin: 05/05/21 07:55 Dose: Not Given Documented by: Azithromycin 500 mg/ Sodium (Chloride) 250 mls @ 250 mls/hr IV Q24H [facility] Sodium Chloride (Normal Saline) 45 mls @ 40 mls/hr IV ASDIRECTED [facility] Last Admin: 05/05/21 09:53 Dose: 40 mls/hr Documented by: Ceftriaxone Sodium 1 gm/ (Sodium Chloride) 100 mls @ 200 mls/hr IV Q24H [facility] Iopamidol (Iopamidol 755 Mg/Ml 100 Ml Bottle) 100 ml IVPUSH ONETIME ONE Stop: 05/05/21 08:57 Last Admin: 05/05/21 09:53 Dose: 100 ml Documented by: Morphine Sulfate (Morphine 2 Mg/Ml Syringe) 2 mg IVPUSH Q2H PRN PRN Reason: Pain (severe 7-10) Stop: 05/06/21 08:48 Last Admin: 05/05/21 21:18 Dose: 2 mg Documented by: Oxycodone HCl (Oxycodone 5 Mg Tab) 5 mg PO Q4H PRN PRN Reason: Pain (moderate 4-6) Last Admin: 05/07/21 04:22 Dose: 5 mg Documented by: Sodium Chloride (Sodium Chloride 0.9% 10 Ml Syringe) 10 ml FLUSH ASDIRECTED PRN PRN Reason: Keep Vein Open Last Admin: 05/04/21 23:43 Dose: 10 ml Documented by: Sodium Chloride (Sodium Chloride 0.9% 10 Ml Syringe) 10 ml FLUSH ONETIME PRN PRN Reason: Keep Vein Open Last Admin: 05/05/21 09:53 Dose: 10 ml Documented by: - Exam Quality Assessment: Reports: Supplemental Oxygen, DVT Prophylaxis General: Reports: Alert, Oriented, Cooperative, No Acute Distress, Other (Cachectic, appears much older than stated age) HEENT: Reports: Pupils Equal, Pupils Reactive Neck: Reports: Supple, Trachea Midline Lungs: Reports: Decreased Breath Sounds (All lung baer), Crackles (Widely scattered), Other (Stiff thorax) Cardiovascular: Reports: Regular Rate, Regular Rhythm GI/Abdominal Exam: Normal Bowel Sounds, Soft, Non-Tender, No Distention (Female) Exam: Deferred Rectal (Female) Exam: Deferred Back Exam: Reports: Normal Inspection (Kyphosis), Full Range of Motion Extremities: Normal Inspection, Normal Range of Motion, No Pedal Edema Skin: Reports: Warm, Dry Neurological: Reports: No New Focal Deficit Psy/Mental Status: Reports: Alert, Normal Affect, Normal Mood *Q Meaningful Use (DIS) - VTE *Q VTE Mechanical Contraindications *Q: At Risk for Falls
[2021-05-10] MEDS: Nicotine 14 MG/24 Hr Patch TRDERM SCH (08:26)
== END 2021-05-10 11:30 | disposition home health service (06) | DRG 189 ==
LOC: JD.ED 23:00 → JD.ICU 05-05 08:15
PROVIDERS: ADMIT Internal Medicine; ATTEND Internal Medicine
PROC: 5A09457 Assistance with Respiratory Ventilation, 24-96 Consecutive Hours, Continuous Positive Airway Pressure (ICD-10-PCS; principal; 2021-05-05)
DX: J96.21 Acute and chronic respiratory failure with hypoxia (principal); J44.9 Chronic obstructive pulmonary disease, unspecified; R09.02 Hypoxemia; R06.09 Other forms of dyspnea; R06.89 Other abnormalities of breathing; E43 Unspecified severe protein-calorie malnutrition; J44.1 Chronic obstructive pulmonary disease with (acute) exacerbation; E87.2 Acidosis; J90 Pleural effusion, not elsewhere classified; J93.9 Pneumothorax, unspecified; J96.22 Acute and chronic respiratory failure with hypercapnia; M25.521 Pain in right elbow; F17.210 Nicotine dependence, cigarettes, uncomplicated; F32.9 Major depressive disorder, single episode, unspecified; I10 Essential (primary) hypertension; M19.90 Unspecified osteoarthritis, unspecified site; M54.9 Dorsalgia, unspecified; G62.9 Polyneuropathy, unspecified; Z88.8 Allergy status to other drugs, medicaments and biological substances; F41.9 Anxiety disorder, unspecified; I25.10 Atherosclerotic heart disease of native coronary artery without angina pectoris; M48.02 Spinal stenosis, cervical region; E78.5 Hyperlipidemia, unspecified; I73.9 Peripheral vascular disease, unspecified; G89.29 Other chronic pain; M54.2 Cervicalgia; Z85.3 Personal history of malignant neoplasm of breast; Z79.82 Long term (current) use of aspirin; Z79.899 Other long term (current) drug therapy; Z88.6 Allergy status to analgesic agent; Z88.1 Allergy status to other antibiotic agents; Z88.0 Allergy status to penicillin; Z20.822 Contact with and (suspected) exposure to COVID-19
CPT/HCPCS: 0240U; 36415; 36600; 71045; 71275; 80048; 80053; 82803; 82945; 83605; 83615; 83735; 84100; 84132; 84157; 84484; 85025; 87040; 87070; 87205; 88112; 88305; 88341; 88342; 89050; 93005; 94640; 94660; 94667; 94668; 96365; 96367; 97110; 97161; 99285; 93010; 99223; 99233; 99239; A9270-GY; J0456; J0696; J1644; J1940; J2060; J2270; J2930; J7030; J7050; J7620-GY; Q9967

== ENCOUNTER 2021-09-20 19:45 | Emergency (ER) | payer MEDICARE, MEDICAID ==
[2021-09-20 20:54] LABS: CORONAVIRUS COVID-19 NAA NEGATIVE (NEGATIVE)
--- NOTE | 2021-09-20 21:07 | EDM.PDOC ---
ED HPI GENERAL MEDICAL PROBLEM - General Chief Complaint: Respiratory Problem Stated Complaint: LOW O2 Time Seen by Provider: 09/20/21 20:15 Source of Information: Reports: Patient, Family (Daughter) History Limitations: Reports: No Limitations - History of Present Illness INITIAL COMMENTS - FREE TEXT/NARRATIVE: Mrs. Reyes is a pleasant 61-year-old woman who now presents the ED stating that she developed a nonproductive cough last night. She has had slight wheezing and dyspnea, both of which are normal for her. No recent fever. She has not taken any uwdd-qlk-kinleug or home remedies, other than her usually prescribed medications, since the onset of her symptoms. At triage, the patient was found to be tachycardic at 120 bpm, otherwise, she was hemodynamically stable and afebrile. Her oxygen saturation was 92% on her usual 3.5 L of supplemental oxygen per nasal cannula. The patient's daughter stated that the patient's oxygen saturation was 84% on supplemental oxygen at home, but the patient did not agree. Prior to last night, the patient denies having a recent fever, chills, sore throat, ear pain, nasal or sinus congestion, cough, chest pain, palpitations, nausea, vomiting, constipation, diarrhea, abdominal pain, urinary symptoms, recent weight gain or weight loss, recent bloody bowel movements or black bowel movements, recent joint aches, headaches, or rashes. The patient's PCP is Milli Loja NP. 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 Her Oncologist is Dr. René Chi. She has received 2 Pfizer COVID vaccinations plus an influenza vaccination this season. - Related Data Allergies Allergy/AdvReac Type Severity Reaction Status Date / Time aspirin Allergy Shaking Verified 09/20/21 20:04 erythromycin base Allergy Hives Verified 09/20/21 20:04 Penicillins Allergy Shaking Verified 09/20/21 20:04 Home Meds: Home Meds Hydrocodone/Acetaminophen [HYDROcodone-Acetaminophen 10-325 MG] 1 each PO Q6HR PRN 05/05/21 [History] Rosuvastatin [Crestor] 20 mg PO DAILY 05/05/21 [History] carisoprodoL [Carisoprodol] 350 mg PO BID PRN 05/05/21 [History] Albuterol Sulfate [Albuterol Sulfate HFA] 2 puff INH Q4H PRN 05/07/21 [History] Aspirin [Aspirin EC] 81 mg PO DAILY 05/07/21 [History] Clotrimazole [Mycelex] 10 mg PO 5XDAY 05/07/21 [History] Mirtazapine 7.5 mg PO BEDTIME 05/07/21 [History] Nicotine [Nicotine Patch] 21 mg TD DAILY #30 patch 05/10/21 [Rx] Tiotropium [place] [Spiriva Respimat] 4 gm INH DAILY #1 spray.metp 05/10/21 [Rx] predniSONE 20 mg PO WITHBREAKFAST #23 tab 05/10/21 [Rx] Amoxicillin/Potassium Clav [Augmentin 875-125 Tablet] 1 tab PO Q12H #13 tablet 09/20/21 [Rx] Past Medical History Cardiovascular History: Reports: High Cholesterol, Other (See Below) (Left carotid artery disease) Respiratory History: Reports: COPD (PFT-proven) Genitourinary History: Reports: Urinary Incontinence (stress incontinence) Musculoskeletal History: Reports: Osteoarthritis Psychiatric History: Reports: Anxiety, Depression Oncologic (Cancer) History: Reports: Breast (left, s/p lumpectomy + RTx) - Past Surgical History HEENT Surgical History: Reports: Oral Surgery (dental extractions) Female Surgical History: Reports: Hysterectomy (partial) Neurological Surgical History: Reports: Other (See Below) (Right elbow ulnar nerve translocation) Oncologic Surgical History: Reports: Lumpectomy (left) Social & Family History - Tobacco Use Tobacco Use Status *Q: Former Tobacco User Packs/Tins Daily: 1 Month/Year Tobacco Last Used: Quit Jul 2021 Tobacco Use Comment: Started smoking 1975 - Caffeine Use Caffeine Use: Reports: Soda - Alcohol Use Alcohol Use History: No - Recreational Drug Use Recreational Drug Use: No - Living Situation & Occupation Living situation: Reports: , Alone Occupation: Retired ED ROS GENERAL - Review of Systems Review Of Systems: Comprehensive ROS is negative, except as noted in HPI. ED EXAM, GENERAL - Physical Exam Exam: See Below Exam Limited By: No Limitations General Appearance: Alert, No Apparent Distress, Thin Eye Exam: Bilateral Eye: EOMI, Normal Inspection Ears: Normal External Exam, Hearing Grossly Normal Nose: Normal Inspection Throat/Mouth: Normal Inspection, Normal Lips, Normal Voice, No Airway Compromise Head: Atraumatic, Normocephalic Neck: Normal Inspection, Full Range of Motion Respiratory/Chest: No Respiratory Distress, No Accessory Muscle Use, Decreased Breath Sounds (throughout), Rhonchi (scattered), Prolonged Expiration (mild). No: Crackles, Wheezing, Stridor, Accessory Muscle Use Cardiovascular: Normal Peripheral Pulses, Regular Rate, Rhythm, No Edema, No Gallop, No JVD, No Murmur, No Rub Peripheral Pulses: 3+: Radial (L), Radial (R) GI/Abdominal: Normal Bowel Sounds, Soft, Non-Tender, No Organomegaly, No Distention, No Abnormal Bruit, No Mass Back Exam: Normal Inspection, Full Range of Motion, NT Extremities: Normal Inspection, Normal Range of Motion, No Pedal Edema, Normal Capillary Refill Neurological: Alert, Oriented, Normal Cognition, No Motor/Sensory Deficits Psychiatric: Normal Affect Skin Exam: Warm, Dry, Intact, Normal Color, No Rash Course - Vital Signs Last Recorded V/S: Last Vital Signs Temp 36.7 C 09/20/21 20:01 Pulse 120 H 09/20/21 20:01 Resp 20 09/20/21 20:01 BP 130/80 09/20/21 20:01 Pulse Ox 92 L 09/20/21 20:01 - Orders/Labs/Meds Orders: Active Orders 24 hr Category Date Time Status Chest 2V [CR] Stat Exams 09/20/21 21:03 Taken BLOOD CULTURE [MREF] Stat Lab 09/20/21 21:56 Ordered BLOOD CULTURE [MREF] Stat Lab 09/20/21 21:56 Ordered Blood Culture x2 Reflex Set [OM.PC] Stat Oth 09/20/21 21:56 Ordered Labs: Laboratory Tests 09/20/21 Range/Units 19:58 Influenza Type A RNA Negative (NEGATIVE) RSV RNA (INAAT) Negative (NEGATIVE) Influenza Type B RNA Negative (NEGATIVE) SARS-CoV-2 RNA (ISAI) Negative (NEGATIVE) Meds: Medications Discontinued Medications Generic Name Dose Route Start Last Admin Trade Name Freq PRN Reason Stop Dose Admin Amoxicillin/Clavulanate Potassium 1 tab 09/20/21 21:55 Amoxicillin/Clavulanate K 875-125 Mg Tab PO 09/20/21 21:56 ONETIME STA - Re-Assessments/Exams Free Text/Narrative Re-Assessment/Exam: 09/20/21 21:02 A swab for the SARS-CoV-2 virus, influenza A + B viruses, and RSV was obtained at triage. I have added a chest x-ray. Provided there is no infiltrate on the chest x-ray, I do not see an indication for blood work at this time. 09/20/21 21:08 The patient's swab for the SARS-CoV-2 virus, influenza A + B viruses, and RSV is negative for all. 09/20/21 21:52 Two-view chest radiograph reviewed. The cardiac silhouette is within normal limits. No pulmonary vascular congestion. No pleural effusions. There is a wedge-shaped opacity, consistent with either an infiltrate or atelectasis, at the left base. A similar shaped opacity was seen on the portable chest radiograph dated 05/07/2021. No pneumothorax. There is hyperinflation and bilateral diaphragmatic flattening, consistent with COPD. Formal read per the Radiologist pending. Based on the above, I will order 2 sets of blood cultures and start the patient on azithromycin. I am not going to check a CBC; the patient always has leukocytosis. 09/20/21 22:01 Test results discussed with the patient and her daughter. 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 Departure - Departure Time of Disposition: 22:02 Disposition: Home, Self-Care 01 Condition: Good Clinical Impression: Cough - Discharge Information *PRESCRIPTION DRUG MONITORING PROGRAM REVIEWED*: Not Applicable *COPY OF PRESCRIPTION DRUG MONITORING REPORT IN PATIENT MALOU: Not Applicable Prescriptions: Amoxicillin/Potassium Clav [Augmentin 875-125 Tablet] 1 tab PO Q12H #13 tablet Instructions: Cough, Adult, [id number] Referrals: Milli Loja NP [Ordering Only Provider] - René Chi MD [Ordering Only Provider] - Forms: ED Department Discharge Additional Instructions: You were seen in the emergency room after developing a cough last night. Work-up in the ER included a chest x-ray and a swab for the SARS-CoV-2 virus, influenza A + B viruses, and RSV. 2 sets of blood cultures were also drawn. Your chest x-ray showed a triangle shaped infiltrate at the left base, which was also present in April 2021, therefore it is unclear if you have pneumonia or not. The rest of your work-up was unremarkable. You have been started on the antibiotic Augmentin, and a prescription for Augmentin has been sent to the [facility], located at [address] [place] [address]. Take 1 tablet of Augmentin every 12 hours, starting tomorrow morning, 09/21/2021, as prescribed. Finish the entire prescription unless told otherwise by your PCP. Continue to take your usually prescribed medications. We do not recommend that you take any [id number] cough or cold remedies, as they have been shown to be of no benefit, but do have side effects, such as an upset stomach. Follow-up with your PCP, Milli Loja NP, at the next available appointment. If any other problems, please do not hesitate to return to the ER. Sepsis Event Note (ED) - Focused Exam Vital Signs: Vital Signs Temp Pulse Resp BP Pulse Ox 09/20/21 20:01 36.7 C 120 H 20 130/80 92 L - My Orders Last 24 Hours: My Active Orders 09/20/21 21:03 Chest 2V [CR] Stat 09/20/21 21:56 BLOOD CULTURE [MREF] Stat BLOOD CULTURE [MREF] Stat Blood Culture x2 Reflex Set [OM.PC] Stat - Assessment/Plan Last 24 Hours: My Active Orders 09/20/21 21:03 Chest 2V [CR] Stat 09/20/21 21:56 BLOOD CULTURE [MREF] Stat BLOOD CULTURE [MREF] Stat Blood Culture x2 Reflex Set [OM.PC] Stat
[2021-09-20] MEDS ORDERED: Amoxicillin/Clavulanate K 875-125 MG Tab PO STA (21:55)
--- NOTE | 2021-09-23 08:51 | CR ---
EXAM: XR CHEST 2 VIEWS LOCATION: [facility] [employer] DATE/TIME: 09/20/2021 9:15 PM INDICATION: Dry cough x24 hours. hx of copd/ on 3l o2 COMPARISON: None. IMPRESSION: Patchy infiltrate throughout the left lower lobe consistent with pneumonia. There may be involvement of the right base to a lesser extent. Small left pleural effusion. Hyperexpansion of the lungs consistent with underlying emphysema. No pneumothorax. Normal heart size and pulmonary vascularity. Surgical clips[. SIGNED BY: Piotr Martínez MD 09/20/2021 10:40 PM MTDD
== END 2021-09-20 22:41 | disposition home or self-care (01) ==
LOC: JD.ED 19:45
DX: R05.9 Cough, unspecified (principal); J44.9 Chronic obstructive pulmonary disease, unspecified; E78.00 Pure hypercholesterolemia, unspecified; M19.90 Unspecified osteoarthritis, unspecified site; Z88.0 Allergy status to penicillin; Z88.1 Allergy status to other antibiotic agents; Z88.8 Allergy status to other drugs, medicaments and biological substances; Z79.82 Long term (current) use of aspirin; Z79.899 Other long term (current) drug therapy; Z87.891 Personal history of nicotine dependence; Z20.822 Contact with and (suspected) exposure to COVID-19
CPT/HCPCS: 0241U; 71046; 87040; 99283; A9270

== ENCOUNTER 2021-09-27 09:44 | Inpatient (IN) | payer MEDICARE, MEDICAID ==
[2021-09-27] MEDS ORDERED: Iopamidol 612 MG/ML 100 ML Bottle IVPUSH ONE (11:10)
[2021-09-27] MEDS ORDERED: Sodium Chloride 0.9% 10 ML Syringe FLUSH PRN (11:10)
[2021-09-27 11:15] LABS: CORONAVIRUS COVID-19 NAA NEGATIVE (NEGATIVE)
[2021-09-27] MEDS ORDERED: Iopamidol 755 Mg/ML 100 ML Bottle IVPUSH ONE (11:44)
[2021-09-27] MEDS ORDERED: Levofloxacin/Dextrose 5%-Water 750 MG in Premix Bag 1 BAG IV STA (13:30)
[2021-09-27] MEDS ORDERED: Albuterol/Ipratropium 3.0-0.5 MG/3 ML Neb Soln NEB ONE (13:31)
[2021-09-27] MEDS ORDERED: Albuterol 0.083% 2.5 MG/3 ML Neb Soln NEB PRN (15:38)
[2021-09-27] MEDS ORDERED: Albuterol 6.7 GM Inhaler INH PRN (15:38)
[2021-09-27] MEDS ORDERED: methylPREDNISolone Sodium Succinate 125 MG/2 ML SDV IVPUSH SCH (15:45)
[2021-09-27] MEDS: Albuterol/Ipratropium 3.0-0.5 MG/3 ML Neb Soln NEB SCH ×2 (16:13→21:46)
[2021-09-27] MEDS: Acetaminophen 325 MG Tab PO PRN ×2 (16:44→22:06)
[2021-09-27] MEDS: methylPREDNISolone Sodium Succinate 125 MG/2 ML SDV IVPUSH SCH (16:50)
[2021-09-27] MEDS: Nicotine 14 MG/24 Hr Patch TRDERM SCH (16:58)
[2021-09-27] MEDS: Enoxaparin 40 MG/0.4 ML Syringe SUBCUT SCH (16:58)
[2021-09-27] MEDS ORDERED: Magnesium Hydroxide 400 MG/5 ML Susp 30 ML Cup PO ONE (17:15)
[2021-09-27] MEDS: Acetaminophen/HYDROcodone 325-10 MG Tab PO PRN ×2 (17:31→22:03)
[2021-09-27] MEDS: Ondansetron 4 MG/2 ML SDV IV PRN (17:52)
[2021-09-27] MEDS: Mirtazapine 15 MG Tab PO SCH (22:04)
[2021-09-27] MEDS: guaiFENesin 600 MG Tab.ER PO SCH (22:04)
[2021-09-28] MEDS: methylPREDNISolone Sodium Succinate 125 MG/2 ML SDV IVPUSH SCH ×2 (04:08→16:02)
[2021-09-28] MEDS: Albuterol/Ipratropium 3.0-0.5 MG/3 ML Neb Soln NEB SCH ×4 (06:37→20:33)
[2021-09-28] MEDS: Rosuvastatin 10 MG Tab PO SCH (09:04)
[2021-09-28] MEDS: Nicotine 14 MG/24 Hr Patch TRDERM SCH (09:04)
[2021-09-28] MEDS: Sertraline 50 MG Tab PO SCH (09:04)
[2021-09-28] MEDS: Aspirin 81 MG Tab.EC PO SCH (09:04)
[2021-09-28] MEDS: Acetaminophen/HYDROcodone 325-10 MG Tab PO PRN ×3 (09:04→22:50)
[2021-09-28] MEDS: Enoxaparin 40 MG/0.4 ML Syringe SUBCUT SCH (09:05)
[2021-09-28] MEDS: guaiFENesin 600 MG Tab.ER PO SCH ×2 (09:05→21:13)
[2021-09-28] MEDS: Levofloxacin 750 MG Tab PO SCH (12:56)
[2021-09-28] MEDS: DALIRESP 500 MCG PO SCH (14:39)
[2021-09-28] MEDS: Ondansetron 4 MG/2 ML SDV IV PRN (16:01)
[2021-09-28] MEDS: Mirtazapine 15 MG Tab PO SCH (21:13)
[2021-09-29] MEDS: methylPREDNISolone Sodium Succinate 125 MG/2 ML SDV IVPUSH SCH ×2 (04:10→16:18)
[2021-09-29] MEDS: Albuterol/Ipratropium 3.0-0.5 MG/3 ML Neb Soln NEB SCH ×4 (06:47→20:23)
[2021-09-29] MEDS: guaiFENesin 600 MG Tab.ER PO SCH ×2 (09:14→22:00)
[2021-09-29] MEDS: Sertraline 50 MG Tab PO SCH (09:14)
[2021-09-29] MEDS: Aspirin 81 MG Tab.EC PO SCH (09:14)
[2021-09-29] MEDS: Enoxaparin 40 MG/0.4 ML Syringe SUBCUT SCH (09:14)
[2021-09-29] MEDS: Rosuvastatin 10 MG Tab PO SCH (09:14)
[2021-09-29] MEDS: Nicotine 14 MG/24 Hr Patch TRDERM SCH (09:15)
[2021-09-29] MEDS: DALIRESP 500 MCG PO SCH (09:16)
[2021-09-29] MEDS: Acetaminophen/HYDROcodone 325-10 MG Tab PO PRN ×2 (09:29→18:02)
[2021-09-29] MEDS: Ondansetron 4 MG/2 ML SDV IV PRN (11:16)
[2021-09-29] MEDS: Levofloxacin 750 MG Tab PO SCH (14:12)
[2021-09-29] MEDS ORDERED: Aluminum Hydroxide/Magnesium Hydroxide/Simethicone Susp 30 ML Cup PO PRN (18:46)
[2021-09-29] MEDS ORDERED: Famotidine 20 MG Tab PO PRN (19:41)
[2021-09-29] MEDS: Mirtazapine 15 MG Tab PO SCH (22:00)
[2021-09-30] MEDS: methylPREDNISolone Sodium Succinate 125 MG/2 ML SDV IVPUSH SCH (03:33)
[2021-09-30] MEDS: Albuterol/Ipratropium 3.0-0.5 MG/3 ML Neb Soln NEB SCH ×2 (05:39→09:49)
[2021-09-30] MEDS: Aspirin 81 MG Tab.EC PO SCH (09:53)
[2021-09-30] MEDS: Nicotine 14 MG/24 Hr Patch TRDERM SCH (09:53)
[2021-09-30] MEDS: Enoxaparin 40 MG/0.4 ML Syringe SUBCUT SCH (09:53)
[2021-09-30] MEDS: DALIRESP 500 MCG PO SCH (09:54)
[2021-09-30] MEDS: Sertraline 50 MG Tab PO SCH (09:54)
[2021-09-30] MEDS: guaiFENesin 600 MG Tab.ER PO SCH ×2 (09:54→21:32)
[2021-09-30] MEDS: Rosuvastatin 10 MG Tab PO SCH (09:54)
[2021-09-30] MEDS: Ondansetron 4 MG/2 ML SDV IV PRN (10:00)
[2021-09-30] MEDS: Acetaminophen/HYDROcodone 325-10 MG Tab PO PRN ×2 (10:01→19:27)
[2021-09-30] MEDS ORDERED: Albuterol/Ipratropium 3.0-0.5 MG/3 ML Neb Soln NEB PRN (11:20)
[2021-09-30] MEDS: Levofloxacin 750 MG Tab PO SCH (13:41)
[2021-09-30] MEDS: Mirtazapine 15 MG Tab PO SCH (21:33)
[2021-10-01] MEDS ORDERED: predniSONE 20 MG Tab PO SCH (07:00)
[2021-10-01] MEDS: Acetaminophen/HYDROcodone 325-10 MG Tab PO PRN (07:46)
[2021-10-01] MEDS: Sertraline 50 MG Tab PO SCH (08:57)
[2021-10-01] MEDS: Aspirin 81 MG Tab.EC PO SCH (08:58)
[2021-10-01] MEDS: guaiFENesin 600 MG Tab.ER PO SCH (09:00)
[2021-10-01] MEDS ORDERED: Furosemide 40 MG Tab PO SCH (09:00)
[2021-10-01] MEDS: Rosuvastatin 10 MG Tab PO SCH (09:00)
[2021-10-01] MEDS: Nicotine 14 MG/24 Hr Patch TRDERM SCH (09:01)
[2021-10-01] MEDS: Enoxaparin 40 MG/0.4 ML Syringe SUBCUT SCH (09:01)
[2021-10-01] MEDS: DALIRESP 500 MCG PO SCH (09:21)
[2021-10-01] MEDS ORDERED: Furosemide 20 MG Tab PO SCH (12:00)
[2021-10-01] MEDS ORDERED: Ondansetron 4 MG Tab.DIS PO ONE (12:45)
== END 2021-10-01 13:48 | disposition home or self-care (01) | DRG 193 ==
LOC: JD.ED 09:44 → JD.MS 15:34
PROVIDERS: ADMIT Internal Medicine; ATTEND Internal Medicine
DX: J18.9 Pneumonia, unspecified organism (principal); J96.21 Acute and chronic respiratory failure with hypoxia; J44.0 Chronic obstructive pulmonary disease with (acute) lower respiratory infection; N39.3 Stress incontinence (female) (male); M19.90 Unspecified osteoarthritis, unspecified site; F32.A Depression, unspecified; J96.22 Acute and chronic respiratory failure with hypercapnia; J44.1 Chronic obstructive pulmonary disease with (acute) exacerbation; E87.2 Acidosis; E78.5 Hyperlipidemia, unspecified; I25.10 Atherosclerotic heart disease of native coronary artery without angina pectoris; Z88.8 Allergy status to other drugs, medicaments and biological substances; F41.9 Anxiety disorder, unspecified; Z79.52 Long term (current) use of systemic steroids; F32.89 Other specified depressive episodes; M15.9 Polyosteoarthritis, unspecified; Z20.822 Contact with and (suspected) exposure to COVID-19; J43.9 Emphysema, unspecified; K59.00 Constipation, unspecified; E78.00 Pure hypercholesterolemia, unspecified; R32 Unspecified urinary incontinence; G89.29 Other chronic pain; M54.9 Dorsalgia, unspecified; Z79.82 Long term (current) use of aspirin; Z99.81 Dependence on supplemental oxygen; Z78.9 Other specified health status; Z85.3 Personal history of malignant neoplasm of breast; Z79.899 Other long term (current) drug therapy; Z88.1 Allergy status to other antibiotic agents; Z88.6 Allergy status to analgesic agent; Z88.0 Allergy status to penicillin; Z90.710 Acquired absence of both cervix and uterus; Z87.891 Personal history of nicotine dependence
CPT/HCPCS: 0240U; 36415; 36600; 71046; 71260; 80048; 80053; 82803; 83735; 84145; 85007; 85025; 85027; 86140; 87040; 87641; 94640; 94660; 94667; 94668; 94761; 96365; 96366; 97116; 97162; 99285; A9270-GY; J1650; J1956; J2405; J2930; J7512; J7620-GY; Q9967

== ENCOUNTER 2022-03-15 16:58 | Emergency (ER) | payer MEDICARE, MEDICAID ==
[2022-03-15] MEDS ORDERED: Acetaminophen/HYDROcodone 325-10 MG Tab PO ONE (19:40)
== END 2022-03-15 20:15 | disposition home or self-care (01) ==
LOC: JD.ED 16:58
DX: Z76.0 Encounter for issue of repeat prescription (principal); G89.29 Other chronic pain; M54.50 Low back pain, unspecified; M79.601 Pain in right arm; N64.4 Mastodynia; E78.00 Pure hypercholesterolemia, unspecified; J44.9 Chronic obstructive pulmonary disease, unspecified; F17.210 Nicotine dependence, cigarettes, uncomplicated; Z88.1 Allergy status to other antibiotic agents; Z88.0 Allergy status to penicillin; Z79.82 Long term (current) use of aspirin; Z79.899 Other long term (current) drug therapy
CPT/HCPCS: 99283; A9270; 99282

== ENCOUNTER 2023-02-03 19:40 | Inpatient (IN) | payer MEDICAID, MEDICARE ==
[2023-02-03] MEDS ORDERED: HYDROmorphone 0.5 MG/0.5 ML Syringe IVPUSH ONE (19:53)
[2023-02-03 20:52] LABS: BASOPHILS ABSOLUTE AUTO 0.01 K/mm3 (0.01-0.08); BASOPHILS PERCENT AUTO 0.1 % (0.1-1.2); EOSINOPHILS PERCENT AUTO 0 (0.7-5.8); HEMATOCRIT 37.7 % (34.1-44.9); HEMOGLOBIN 11.3 gm/dl (11.2-15.7); IMMATURE GRAN ABSOLUTE AUTO 0.17 K/mm3 (0.00-0.10); LYMPHOCYTES ABSOLUTE AUTO 0.82 K/mm3 (1.18-3.74); LYMPHOCYTES PERCENT AUTO 4.9 % (19.3-51.7); MEAN CORPUSCULAR HEMOGLOBIN 28.3 pg (25.6-32.2); MEAN PLATELET VOLUME 8.5 fl (9.4-12.3); MONOCYTES ABSOLUTE AUTO 1.46 K/mm3 (0.24-0.36); MONOCYTES PERCENT AUTO 8.8 % (4.7-12.5); NEUTROPHILS ABSOLUTE AUTO 14.11 K/mm3 (1.56-6.13); NEUTROPHILS PERCENT AUTO 85.2 % (34.0-71.1); PLATELET COUNT,PLT 336 K/mm3 (182-369); RED BLOOD CELL COUNT 3.99 M/mm3 (3.98-5.22); WHITE BLOOD CELL COUNT,WBC 16.57 K/mm3 (3.98-10.04)
[2023-02-03 20:53] LABS: MEAN CORPUSCULAR VOLUME 94.5 fl (79.4-94.8)
[2023-02-03 21:21] LABS: A/G RATIO 0.8 (1-2); ALANINE AMINOTRANSFERASE,ALT 27 U/L (14-59); ALBUMIN 3.3 g/dl (3.4-5.0); ALKALINE PHOSPHATASE 87 U/L (46-116); ANION GAP 5.9 (5-15); ASPARTATE AMNIOTRANSFERASE,AST 26 U/L (15-37); BILIRUBIN TOTAL 0.3 mg/dL (0.2-1.0); BLOOD UREA NITROGEN,BUN 17 mg/dL (7-18); BUN/CREATININE RATIO 21.3 (14-18); C-REACTIVE PROTEIN <0.2 mg/dL (<1.0); CHLORIDE,CL 99 mEq/L (98-107); CREATININE 0.8 mg/dL (0.55-1.02); ESTIMATED GFR 83 mL/min (>60); GLUCOSE RANDOM 112 mg/dL (70-99); POTASSIUM,K 3.9 mEq/L (3.5-5.1); PROTEIN TOTAL,TP 7.4 g/dl (6.4-8.2); SODIUM,NA 142 mEq/L (136-145)
[2023-02-03 21:25] LABS: CARBON DIOXIDE,CO2 41 mEq/L (21-32)
[2023-02-03] MEDS: Sodium Chloride 0.9% 1,000 ML IV SCH (23:24)
[2023-02-03 23:26] LABS: APPEARANCE,URINE SLT CLOUDY (Clear); BILIRUBIN,URINE NEGATIVE (Negative); COLOR,URINE YELLOW (Yellow); GLUCOSE,URINE NEGATIVE (Negative); KETONES,URINE NEGATIVE (Negative); LEUKOCYTE ESTERASE,URINE NEGATIVE (Negative); NITRITE,URINE NEGATIVE (Negative); OCCULT BLOOD,URINE TRACE-LYSED (Negative); PH,URINE 5.5 (5.0-8.0); PROTEIN,URINE 3+ (Negative); UROBILINOGEN,URINE 0.2 (0.2-1.0)
[2023-02-03 23:36] LABS: BARBITURATE SCREEN,URINE NEGATIVE (CUTOFF=200); BENZODIAZEPINES SCREEN,URINE NEGATIVE (CUTOFF=150); BUPRENORPHINE SCREEN,URINE NEGATIVE (CUTOFF=10); METHADONE SCREEN, URINE NEGATIVE (CUTOFF=200); METHAMPHETAMINES SCREEN, URINE NEGATIVE (CUTOFF=500); OXYCODONE SCREEN,URINE NEGATIVE (CUT0FF=100); PROPOXYPHENE SCREEN,URINE NEGATIVE (CUTOFF=300); THC SCREEN,URINE 20 NG/ML NEGATIVE (CUTOFF=50)
[2023-02-03 23:47] LABS: AMPHETAMINES SCREEN, URINE NEGATIVE (CUTOFF=500)
[2023-02-04] LABS: AMORPHOUS SEDIMENT,URINE FEW /hpf (NOT SEEN); BACTERIA,URINE MODERATE /hpf (FEW); EPITHELIAL CELLS,URINE 0-5 /hpf (0-5); MUCUS,URINE FEW /hpf (FEW); RBC,URINE 0-5 /hpf (0-5)
[2023-02-04] MEDS ORDERED: fentaNYL 100 MCG/2 ML SDV IVPUSH ONE ×2 (01:55→06:46)
[2023-02-04] MEDS ORDERED: hydrALAZINE 20 MG/ML SDV IVPUSH PRN (08:28)
[2023-02-04] MEDS ORDERED: Docusate Sodium 100 MG Cap PO PRN (08:28)
[2023-02-04] MEDS ORDERED: Psyllium Husk Powder Sugar Free 5.85 GM Packet PO PRN (08:28)
[2023-02-04] MEDS ORDERED: Ondansetron 4 MG/2 ML SDV IVPUSH PRN (08:28)
[2023-02-04] MEDS ORDERED: methylPREDNISolone Sodium Succinate 40 MG/1 ML SDV IVPUSH SCH (09:00)
[2023-02-04] MEDS: Sodium Chloride 0.9% 1,000 ML IV SCH ×2 (09:31→19:14)
[2023-02-04] MEDS: Albuterol/Ipratropium 3.0-0.5 MG/3 ML Neb Soln NEB SCH ×4 (09:45→20:28)
[2023-02-04] MEDS ORDERED: predniSONE 20 MG Tab PO ONE ×2 (10:00→12:30)
[2023-02-04] MEDS ORDERED: Lidocaine 1%/Sod Bicarbonate in NS 8.4% 1 ML Syringe IDERM PRN (10:24)
[2023-02-04] MEDS ORDERED: Sodium Chloride 0.9% 10 ML Syringe FLUSH PRN (10:24)
[2023-02-04] MEDS ORDERED: Lactated Ringers 1,000 ML IV SCH (10:30)
[2023-02-04] MEDS: Lidocaine 4% 1 each Patch TOP SCH (11:06)
[2023-02-04] MEDS: Nicotine 14 MG/24 Hr Patch TRDERM SCH (11:06)
[2023-02-04 11:07] LABS: INR 0.97; PROTHROMBIN TIME 10.4 SECONDS (9.7-12.0)
[2023-02-04] MEDS: HYDROmorphone 0.5 MG/0.5 ML Syringe IVPUSH PRN ×3 (11:07→22:59)
[2023-02-04 11:08] LABS: PTT,PARTIAL THROMBOPLSTIN TIME 25.6 SECONDS (21.7-31.4)
[2023-02-04] MEDS: Sodium Chloride 0.9% 10 ML Syringe FLUSH SCH ×2 (11:08→23:01)
[2023-02-04] MEDS ORDERED: GLYCOPYR INH SCH (12:00)
[2023-02-04] MEDS ORDERED: BUDESONIDE INH SCH (12:00)
[2023-02-04] MEDS ORDERED: FORMOTEROL INH SCH (12:00)
[2023-02-04] MEDS: Heparin Sodium 5,000 Units/ML Vial SUBCUT SCH ×2 (12:18→12:20)
[2023-02-04] MEDS: Multivitamin Tab PO SCH (12:20)
[2023-02-04] MEDS: ROFLUMILAST 250 MCG PO SCH (12:21)
[2023-02-04] MEDS: Rosuvastatin 10 MG Tab PO SCH (12:25)
[2023-02-04] MEDS: Sertraline 50 MG Tab PO SCH (12:26)
[2023-02-04] MEDS: Famotidine 20 MG Tab PO SCH (12:26)
[2023-02-04] MEDS ORDERED: Multivitamin Tab PO ONE (12:30)
[2023-02-04] MEDS ORDERED: Heparin Sodium 5,000 Units/ML Vial SUBCUT ONE (12:30)
[2023-02-04] MEDS: FORMOTEROL INH SCH (20:29)
[2023-02-04] MEDS: BUDESONIDE INH SCH (20:29)
[2023-02-04] MEDS: GLYCOPYR INH SCH (20:29)
[2023-02-05] MEDS: Acetaminophen/oxyCODONE 325-5 MG Tab PO PRN ×3 (02:53→22:10)
[2023-02-05] MEDS: HYDROmorphone 0.5 MG/0.5 ML Syringe IVPUSH PRN ×2 (05:08→16:10)
[2023-02-05 05:55] LABS: ANION GAP 3.2 (5-15); BUN/CREATININE RATIO 27.5 (14-18); CALCIUM 8.1 mg/dL (8.5-10.1); CREATININE 0.4 mg/dL (0.55-1.02); EST CRCL DRUG DOSING (CG) 110.5 mL/min; POTASSIUM,K 4.2 mEq/L (3.5-5.1)
[2023-02-05 06:07] LABS: BASOPHILS ABSOLUTE AUTO 0.01 K/mm3 (0.01-0.08); BASOPHILS PERCENT AUTO 0.1 % (0.1-1.2); EOSINOPHILS PERCENT AUTO 0 (0.7-5.8); HEMATOCRIT 29.2 % (34.1-44.9); IMMATURE GRAN ABSOLUTE AUTO 0.02 K/mm3 (0.00-0.10); IMMATURE GRAN PERCENT AUTO 0.2 % (<=1.0); LYMPHOCYTES ABSOLUTE AUTO 1.11 K/mm3 (1.18-3.74); MEAN CORPUSCULAR HEMOGLOBIN 28.1 pg (25.6-32.2); MEAN CORPUSCULAR HGB CONC 29.1 g/dl (32.2-35.5); MEAN CORPUSCULAR VOLUME 96.4 fl (79.4-94.8); MONOCYTES ABSOLUTE AUTO 0.99 K/mm3 (0.24-0.36); MONOCYTES PERCENT AUTO 10.7 % (4.7-12.5); NEUTROPHILS ABSOLUTE AUTO 7.13 K/mm3 (1.56-6.13); PLATELET COUNT,PLT 220 K/mm3 (182-369); RED BLOOD CELL COUNT 3.03 M/mm3 (3.98-5.22); WHITE BLOOD CELL COUNT,WBC 9.26 K/mm3 (3.98-10.04)
[2023-02-05 06:23] LABS: HEMOGLOBIN 8.5 gm/dl (11.2-15.7)
[2023-02-05] MEDS: predniSONE 20 MG Tab PO SCH (08:38)
[2023-02-05] MEDS ORDERED: Furosemide 20 MG Tab PO SCH (09:00)
[2023-02-05] MEDS ORDERED: Midazolam 1 MG/ML 2 ML SDV ONE (09:38)
[2023-02-05] MEDS ORDERED: fentaNYL 100 MCG/2 ML SDV ONE (09:39)
[2023-02-05] MEDS ORDERED: Lidocaine 1% 2 ML ONE (09:39)
[2023-02-05] MEDS: Albuterol/Ipratropium 3.0-0.5 MG/3 ML Neb Soln NEB SCH ×4 (09:39→21:40)
[2023-02-05] MEDS ORDERED: Propofol 200 MG/20 ML SDV ONE (09:39)
[2023-02-05] MEDS: FORMOTEROL INH SCH ×2 (09:40→21:41)
[2023-02-05] MEDS: GLYCOPYR INH SCH ×2 (09:40→21:41)
[2023-02-05] MEDS: BUDESONIDE INH SCH ×2 (09:40→21:41)
[2023-02-05] MEDS ORDERED: Ketamine 500 mg/10 ML MDV ONE (09:40)
[2023-02-05] MEDS ORDERED: Bupivacaine 0.25% 10 ML SDV ONE (09:41)
[2023-02-05] MEDS ORDERED: HYDROmorphone 0.5 MG/0.5 ML Syringe IVPUSH ONE (09:45)
[2023-02-05] MEDS ORDERED: ceFAZolin 2 GM Vial ONE (09:47)
[2023-02-05] MEDS: Lidocaine 4% 1 each Patch TOP SCH ×2 (09:56→14:45)
[2023-02-05] MEDS: Rosuvastatin 10 MG Tab PO SCH (09:56)
[2023-02-05] MEDS ORDERED: Furosemide 40 MG/4 ML VIAL IVPUSH ONE (10:00)
[2023-02-05] MEDS ORDERED: Bupivacaine 0.5% 10 ML SDV ONE (10:05)
[2023-02-05] MEDS ORDERED: Hydrocortisone Sodium Succinate 100 MG/2 ML SDV ONE ×2 (10:36→10:37)
[2023-02-05] MEDS ORDERED: Sodium Chloride 0.9% 100 ML ONE (10:37)
[2023-02-05] MEDS ORDERED: Phenylephrine 1% 10 MG/ML SDV ONE (10:48)
[2023-02-05] MEDS: Bupivacaine 0.25% 10 ML SDV ONE ×2 (11:23→11:35)
[2023-02-05] MEDS: Albuterol/Ipratropium 3.0-0.5 MG/3 ML Neb Soln NEB PRN (13:01)
[2023-02-05 14:15] LABS: HEMATOCRIT 31.9 % (34.1-44.9); HEMOGLOBIN 9.4 gm/dl (11.2-15.7)
[2023-02-05] MEDS: Famotidine 20 MG Tab PO SCH (14:44)
[2023-02-05] MEDS: Nicotine 14 MG/24 Hr Patch TRDERM SCH (14:44)
[2023-02-05] MEDS: Multivitamin Tab PO SCH (14:46)
[2023-02-05] MEDS: Sertraline 50 MG Tab PO SCH (14:48)
[2023-02-05] MEDS: Roflumilast [Daliresp] 500 MCG Tablet ** PATIENT'S OWN MED PO SCH (15:54)
[2023-02-05] MEDS: Heparin Sodium 5,000 Units/ML Vial SUBCUT SCH (16:09)
[2023-02-05] MEDS: Metoprolol Tartrate 25 MG Tab PO SCH (17:54)
[2023-02-06] MEDS: Sodium Chloride 0.9% 1,000 ML IV SCH ×2 (00:47→09:47)
[2023-02-06] MEDS: Heparin Sodium 5,000 Units/ML Vial SUBCUT SCH ×3 (00:48→16:56)
[2023-02-06] MEDS: HYDROmorphone 0.5 MG/0.5 ML Syringe IVPUSH PRN (02:43)
[2023-02-06] MEDS: Albuterol/Ipratropium 3.0-0.5 MG/3 ML Neb Soln NEB SCH ×4 (05:17→21:10)
[2023-02-06] MEDS: predniSONE 20 MG Tab PO SCH (06:01)
[2023-02-06 06:38] LABS: ANION GAP 4.8 (5-15); BUN/CREATININE RATIO 33.3 (14-18); CALCIUM 8.5 mg/dL (8.5-10.1); CREATININE 0.3 mg/dL (0.55-1.02); EST CRCL DRUG DOSING (CG) 148.44 mL/min; POTASSIUM,K 3.8 mEq/L (3.5-5.1)
[2023-02-06 06:56] LABS: BASOPHILS ABSOLUTE AUTO 0.01 K/mm3 (0.01-0.08); BASOPHILS PERCENT AUTO 0.1 % (0.1-1.2); EOSINOPHILS ABSOLUTE AUTO 0.06 K/mm3 (0.04-0.36); EOSINOPHILS PERCENT AUTO 0.5 (0.7-5.8); HEMATOCRIT 29.3 % (34.1-44.9); HEMOGLOBIN 8.6 gm/dl (11.2-15.7); IMMATURE GRAN ABSOLUTE AUTO 0.04 K/mm3 (0.00-0.10); IMMATURE GRAN PERCENT AUTO 0.3 % (<=1.0); LYMPHOCYTES ABSOLUTE AUTO 1.64 K/mm3 (1.18-3.74); LYMPHOCYTES PERCENT AUTO 12.8 % (19.3-51.7); MEAN CORPUSCULAR HEMOGLOBIN 28.3 pg (25.6-32.2); MEAN CORPUSCULAR HGB CONC 29.4 g/dl (32.2-35.5); MEAN CORPUSCULAR VOLUME 96.4 fl (79.4-94.8); MEAN PLATELET VOLUME 9.7 fl (9.4-12.3); MONOCYTES ABSOLUTE AUTO 1.12 K/mm3 (0.24-0.36); MONOCYTES PERCENT AUTO 8.8 % (4.7-12.5); NEUTROPHILS ABSOLUTE AUTO 9.91 K/mm3 (1.56-6.13); NEUTROPHILS PERCENT AUTO 77.5 % (34.0-71.1); PLATELET COUNT,PLT 225 K/mm3 (182-369); RED BLOOD CELL COUNT 3.04 M/mm3 (3.98-5.22); WHITE BLOOD CELL COUNT,WBC 12.78 K/mm3 (3.98-10.04)
[2023-02-06] MEDS: ROFLUMILAST 250 MCG PO SCH (07:51)
[2023-02-06] MEDS: Metoprolol Tartrate 25 MG Tab PO SCH (08:40)
[2023-02-06] MEDS: Furosemide 20 MG Tab PO SCH (08:40)
[2023-02-06] MEDS: Famotidine 20 MG Tab PO SCH (08:40)
[2023-02-06] MEDS: Multivitamin Tab PO SCH (08:40)
[2023-02-06] MEDS: Rosuvastatin 10 MG Tab PO SCH (08:40)
[2023-02-06] MEDS: Sertraline 50 MG Tab PO SCH (08:40)
[2023-02-06] MEDS: Nicotine 14 MG/24 Hr Patch TRDERM SCH (08:41)
[2023-02-06] MEDS: Acetaminophen/oxyCODONE 325-5 MG Tab PO PRN ×2 (08:41→19:20)
[2023-02-06] MEDS: Acetaminophen 325 MG Tab PO PRN (08:41)
[2023-02-06] MEDS: Lidocaine 4% 1 each Patch TOP SCH (08:42)
[2023-02-06] MEDS: Roflumilast [Daliresp] 500 MCG Tablet ** PATIENT'S OWN MED PO SCH (08:43)
[2023-02-06] MEDS: FORMOTEROL INH SCH ×2 (09:01→21:10)
[2023-02-06] MEDS: GLYCOPYR INH SCH ×2 (09:01→21:10)
[2023-02-06] MEDS: BUDESONIDE INH SCH ×2 (09:01→21:10)
[2023-02-06] MEDS ORDERED: Dexamethasone 4 MG/ML SDV IVPUSH ONE (10:44)
[2023-02-06] MEDS ORDERED: Sodium Chloride 0.9% 250 ML IV ONE (10:45)
[2023-02-06] MEDS: Dexamethasone 4 MG/ML SDV IVPUSH SCH (20:43)
[2023-02-07] MEDS: HYDROmorphone 0.5 MG/0.5 ML Syringe IVPUSH PRN ×5 (00:12→22:19)
[2023-02-07] MEDS: Heparin Sodium 5,000 Units/ML Vial SUBCUT SCH ×3 (00:25→18:18)
[2023-02-07] MEDS: Acetaminophen/oxyCODONE 325-5 MG Tab PO PRN ×3 (01:13→20:35)
[2023-02-07 05:33] LABS: EOSINOPHILS PERCENT AUTO 0 (0.7-5.8); HEMATOCRIT 24.6 % (34.1-44.9); IMMATURE GRAN ABSOLUTE AUTO 0.05 K/mm3 (0.00-0.10); IMMATURE GRAN PERCENT AUTO 0.4 % (<=1.0); LYMPHOCYTES PERCENT AUTO 4.5 % (19.3-51.7); MEAN CORPUSCULAR HEMOGLOBIN 28.1 pg (25.6-32.2); MEAN CORPUSCULAR HGB CONC 29.3 g/dl (32.2-35.5); MEAN CORPUSCULAR VOLUME 96.1 fl (79.4-94.8); MEAN PLATELET VOLUME 9.2 fl (9.4-12.3); MONOCYTES ABSOLUTE AUTO 0.71 K/mm3 (0.24-0.36); MONOCYTES PERCENT AUTO 6.3 % (4.7-12.5); NEUTROPHILS ABSOLUTE AUTO 9.94 K/mm3 (1.56-6.13); NEUTROPHILS PERCENT AUTO 88.8 % (34.0-71.1); PLATELET COUNT,PLT 221 K/mm3 (182-369); RED BLOOD CELL COUNT 2.56 M/mm3 (3.98-5.22)
[2023-02-07 05:51] LABS: HEMOGLOBIN 7.2 gm/dl (11.2-15.7)
[2023-02-07] MEDS: Albuterol/Ipratropium 3.0-0.5 MG/3 ML Neb Soln NEB SCH ×4 (06:20→20:39)
[2023-02-07 06:48] LABS: ANION GAP 4.1 (5-15); CALCIUM 8.4 mg/dL (8.5-10.1); CREATININE 0.4 mg/dL (0.55-1.02); EST CRCL DRUG DOSING (CG) 113.85 mL/min; POTASSIUM,K 4.1 mEq/L (3.5-5.1)
[2023-02-07] MEDS: BUDESONIDE INH SCH ×2 (09:01→20:39)
[2023-02-07] MEDS: FORMOTEROL INH SCH ×2 (09:01→20:39)
[2023-02-07] MEDS: GLYCOPYR INH SCH ×2 (09:01→20:39)
[2023-02-07 09:28] LABS: HEMATOCRIT 29.1 % (34.1-44.9); HEMOGLOBIN 8.4 gm/dl (11.2-15.7)
[2023-02-07] MEDS: Famotidine 20 MG Tab PO SCH (09:36)
[2023-02-07] MEDS: Sertraline 50 MG Tab PO SCH (09:37)
[2023-02-07] MEDS: Multivitamin Tab PO SCH (09:38)
[2023-02-07] MEDS: Rosuvastatin 10 MG Tab PO SCH (09:38)
[2023-02-07] MEDS: Dexamethasone 4 MG/ML SDV IVPUSH SCH ×2 (09:41→20:34)
[2023-02-07] MEDS: Furosemide 20 MG Tab PO SCH (09:42)
[2023-02-07] MEDS: Lidocaine 4% 1 each Patch TOP SCH (09:43)
[2023-02-07] MEDS: Nicotine 14 MG/24 Hr Patch TRDERM SCH (10:00)
[2023-02-07] MEDS: Roflumilast [Daliresp] 500 MCG Tablet ** PATIENT'S OWN MED PO SCH (10:34)
[2023-02-08] MEDS: Heparin Sodium 5,000 Units/ML Vial SUBCUT SCH ×3 (01:03→18:31)
[2023-02-08] MEDS: HYDROmorphone 0.5 MG/0.5 ML Syringe IVPUSH PRN ×4 (03:53→20:33)
[2023-02-08 05:33] LABS: EOSINOPHILS PERCENT AUTO 0 (0.7-5.8); HEMATOCRIT 28.3 % (34.1-44.9); HEMOGLOBIN 8.1 gm/dl (11.2-15.7); IMMATURE GRAN ABSOLUTE AUTO 0.11 K/mm3 (0.00-0.10); LYMPHOCYTES ABSOLUTE AUTO 0.54 K/mm3 (1.18-3.74); LYMPHOCYTES PERCENT AUTO 4.7 % (19.3-51.7); MEAN CORPUSCULAR HEMOGLOBIN 27.9 pg (25.6-32.2); MEAN CORPUSCULAR HGB CONC 28.6 g/dl (32.2-35.5); MEAN CORPUSCULAR VOLUME 97.6 fl (79.4-94.8); MEAN PLATELET VOLUME 9.3 fl (9.4-12.3); MONOCYTES ABSOLUTE AUTO 0.48 K/mm3 (0.24-0.36); MONOCYTES PERCENT AUTO 4.2 % (4.7-12.5); NEUTROPHILS ABSOLUTE AUTO 10.29 K/mm3 (1.56-6.13); NEUTROPHILS PERCENT AUTO 90.1 % (34.0-71.1); PLATELET COUNT,PLT 252 K/mm3 (182-369); WHITE BLOOD CELL COUNT,WBC 11.42 K/mm3 (3.98-10.04)
[2023-02-08] MEDS: Albuterol/Ipratropium 3.0-0.5 MG/3 ML Neb Soln NEB SCH ×4 (05:51→20:21)
[2023-02-08 05:56] LABS: ANION GAP 6.3 (5-15); CALCIUM 8.9 mg/dL (8.5-10.1); CREATININE 0.4 mg/dL (0.55-1.02); EST CRCL DRUG DOSING (CG) 113.85 mL/min; POTASSIUM,K 4.3 mEq/L (3.5-5.1)
[2023-02-08 06:14] LABS: SLIDE REVIEW ABNORMAL SMEAR
[2023-02-08] MEDS: Nicotine 14 MG/24 Hr Patch TRDERM SCH (09:14)
[2023-02-08] MEDS: Lidocaine 4% 1 each Patch TOP SCH (09:16)
[2023-02-08] MEDS: Furosemide 20 MG Tab PO SCH (09:20)
[2023-02-08] MEDS: Sertraline 50 MG Tab PO SCH (09:21)
[2023-02-08] MEDS: Rosuvastatin 10 MG Tab PO SCH (09:21)
[2023-02-08] MEDS: Famotidine 20 MG Tab PO SCH (09:21)
[2023-02-08] MEDS: Multivitamin Tab PO SCH (09:22)
[2023-02-08] MEDS: Dexamethasone 4 MG/ML SDV IVPUSH SCH ×2 (09:22→20:35)
[2023-02-08] MEDS: Roflumilast [Daliresp] 500 MCG Tablet ** PATIENT'S OWN MED PO SCH (09:30)
[2023-02-08] MEDS: FORMOTEROL INH SCH ×2 (09:41→20:22)
[2023-02-08] MEDS: BUDESONIDE INH SCH ×2 (09:41→20:22)
[2023-02-08] MEDS: GLYCOPYR INH SCH ×2 (09:41→20:22)
[2023-02-08] MEDS: Acetaminophen/oxyCODONE 325-5 MG Tab PO PRN ×2 (12:07→18:31)
[2023-02-08] MEDS: Nicotine 21 MG/24 Hr Patch TRDERM SCH (18:38)
[2023-02-08] MEDS: Acetaminophen 325 MG Tab PO PRN (22:47)
[2023-02-09] MEDS: Heparin Sodium 5,000 Units/ML Vial SUBCUT SCH ×3 (00:29→17:56)
[2023-02-09] MEDS: HYDROmorphone 0.5 MG/0.5 ML Syringe IVPUSH PRN ×3 (00:30→10:24)
[2023-02-09] MEDS: Acetaminophen/oxyCODONE 325-5 MG Tab PO PRN (01:16)
[2023-02-09] MEDS: Albuterol/Ipratropium 3.0-0.5 MG/3 ML Neb Soln NEB PRN (03:06)
[2023-02-09 05:57] LABS: BASOPHILS ABSOLUTE AUTO 0.01 K/mm3 (0.01-0.08); BASOPHILS PERCENT AUTO 0.1 % (0.1-1.2); EOSINOPHILS PERCENT AUTO 0 (0.7-5.8); HEMATOCRIT 26.7 % (34.1-44.9); HEMOGLOBIN 7.6 gm/dl (11.2-15.7); IMMATURE GRAN ABSOLUTE AUTO 0.25 K/mm3 (0.00-0.10); IMMATURE GRAN PERCENT AUTO 1.8 % (<=1.0); LYMPHOCYTES ABSOLUTE AUTO 0.69 K/mm3 (1.18-3.74); LYMPHOCYTES PERCENT AUTO 4.9 % (19.3-51.7); MEAN CORPUSCULAR HEMOGLOBIN 28.5 pg (25.6-32.2); MEAN CORPUSCULAR HGB CONC 28.5 g/dl (32.2-35.5); MEAN PLATELET VOLUME 8.9 fl (9.4-12.3); MONOCYTES ABSOLUTE AUTO 0.81 K/mm3 (0.24-0.36); MONOCYTES PERCENT AUTO 5.7 % (4.7-12.5); NEUTROPHILS ABSOLUTE AUTO 12.34 K/mm3 (1.56-6.13); NEUTROPHILS PERCENT AUTO 87.5 % (34.0-71.1); PLATELET COUNT,PLT 274 K/mm3 (182-369); RED BLOOD CELL COUNT 2.67 M/mm3 (3.98-5.22)
[2023-02-09 06:23] LABS: POTASSIUM,K 4.5 mEq/L (3.5-5.1)
[2023-02-09 06:36] LABS: ANION GAP 3.5 (5-15); CALCIUM 8.8 mg/dL (8.5-10.1); CREATININE 0.4 mg/dL (0.55-1.02); EST CRCL DRUG DOSING (CG) 113.85 mL/min
[2023-02-09] MEDS: Albuterol/Ipratropium 3.0-0.5 MG/3 ML Neb Soln NEB SCH ×4 (06:44→20:10)
[2023-02-09 07:36] LABS: SLIDE REVIEW ABNORMAL SMEAR
[2023-02-09] MEDS: Dexamethasone 4 MG/ML SDV IVPUSH SCH ×2 (08:48→20:21)
[2023-02-09] MEDS: Multivitamin Tab PO SCH (08:48)
[2023-02-09] MEDS: Famotidine 20 MG Tab PO SCH (08:49)
[2023-02-09] MEDS: Rosuvastatin 10 MG Tab PO SCH (08:49)
[2023-02-09] MEDS: Nicotine 21 MG/24 Hr Patch TRDERM SCH (08:49)
[2023-02-09] MEDS: Sertraline 50 MG Tab PO SCH (08:50)
[2023-02-09] MEDS: Furosemide 20 MG Tab PO SCH (08:50)
[2023-02-09] MEDS: Lidocaine 4% 1 each Patch TOP SCH (08:50)
[2023-02-09] MEDS: Acetaminophen/HYDROcodone 325-10 MG Tab PO PRN ×3 (08:54→20:20)
[2023-02-09] MEDS: FORMOTEROL INH SCH ×2 (09:20→20:35)
[2023-02-09] MEDS: GLYCOPYR INH SCH ×2 (09:20→20:35)
[2023-02-09] MEDS: BUDESONIDE INH SCH ×2 (09:20→20:35)
[2023-02-09] MEDS ORDERED: CARISOPRODOL 350 MG PO PRN (11:21)
[2023-02-09] MEDS ORDERED: Non-Formulary Medication 1 Each (Carisoprodol 350 MG Tablet) PO PRN (11:24)
[2023-02-09] MEDS: Roflumilast [Daliresp] 500 MCG Tablet ** PATIENT'S OWN MED PO SCH (14:27)
[2023-02-09] MEDS: Acetaminophen 325 MG Tab PO PRN (20:20)
[2023-02-10] MEDS: Heparin Sodium 5,000 Units/ML Vial SUBCUT SCH ×3 (00:03→16:31)
[2023-02-10] MEDS: HYDROmorphone 0.5 MG/0.5 ML Syringe IVPUSH PRN ×2 (04:47→20:32)
[2023-02-10 06:14] LABS: A/G RATIO 0.7 (1-2); ALBUMIN 2.6 g/dl (3.4-5.0); ANION GAP 4.7 (5-15); BILIRUBIN TOTAL 0.4 mg/dL (0.2-1.0); BUN/CREATININE RATIO 42.5 (14-18); CALCIUM 8.6 mg/dL (8.5-10.1); CREATININE 0.4 mg/dL (0.55-1.02); EST CRCL DRUG DOSING (CG) 113.85 mL/min; POTASSIUM,K 4.7 mEq/L (3.5-5.1); PROTEIN TOTAL,TP 6.1 g/dl (6.4-8.2)
[2023-02-10] MEDS: Acetaminophen/HYDROcodone 325-10 MG Tab PO PRN ×3 (06:26→20:33)
[2023-02-10] MEDS: Albuterol/Ipratropium 3.0-0.5 MG/3 ML Neb Soln NEB SCH ×4 (06:39→20:15)
[2023-02-10] MEDS: GLYCOPYR INH SCH ×2 (09:02→20:15)
[2023-02-10] MEDS: BUDESONIDE INH SCH ×2 (09:02→20:15)
[2023-02-10] MEDS: FORMOTEROL INH SCH ×2 (09:02→20:15)
[2023-02-10] MEDS: Lidocaine 4% 1 each Patch TOP SCH (09:47)
[2023-02-10] MEDS: Nicotine 21 MG/24 Hr Patch TRDERM SCH (09:48)
[2023-02-10] MEDS: Dexamethasone 4 MG/ML SDV IVPUSH SCH (09:48)
[2023-02-10] MEDS: Famotidine 20 MG Tab PO SCH (09:49)
[2023-02-10] MEDS: Rosuvastatin 10 MG Tab PO SCH (09:49)
[2023-02-10] MEDS: Furosemide 20 MG Tab PO SCH (09:50)
[2023-02-10] MEDS: Multivitamin Tab PO SCH (09:50)
[2023-02-10] MEDS: Sertraline 50 MG Tab PO SCH (09:50)
[2023-02-10] MEDS: Roflumilast [Daliresp] 500 MCG Tablet ** PATIENT'S OWN MED PO SCH (09:56)
[2023-02-10 10:58] LABS: BASOPHILS ABSOLUTE AUTO 0.02 K/mm3 (0.01-0.08); BASOPHILS PERCENT AUTO 0.1 % (0.1-1.2); EOSINOPHILS ABSOLUTE AUTO 0.01 K/mm3 (0.04-0.36); EOSINOPHILS PERCENT AUTO 0.1 (0.7-5.8); HEMATOCRIT 29.4 % (34.1-44.9); HEMOGLOBIN 8.3 gm/dl (11.2-15.7); LYMPHOCYTES ABSOLUTE AUTO 1.18 K/mm3 (1.18-3.74); LYMPHOCYTES PERCENT AUTO 7.8 % (19.3-51.7); MEAN CORPUSCULAR HEMOGLOBIN 28.1 pg (25.6-32.2); MEAN CORPUSCULAR HGB CONC 28.2 g/dl (32.2-35.5); MEAN CORPUSCULAR VOLUME 99.7 fl (79.4-94.8); MONOCYTES ABSOLUTE AUTO 1.26 K/mm3 (0.24-0.36); MONOCYTES PERCENT AUTO 8.3 % (4.7-12.5); NEUTROPHILS ABSOLUTE AUTO 12.34 K/mm3 (1.56-6.13); NEUTROPHILS PERCENT AUTO 81.7 % (34.0-71.1); PLATELET COUNT,PLT 332 K/mm3 (182-369); RED BLOOD CELL COUNT 2.95 M/mm3 (3.98-5.22); WHITE BLOOD CELL COUNT,WBC 15.11 K/mm3 (3.98-10.04)
[2023-02-10 12:09] LABS: SLIDE REVIEW ABNORMAL SMEAR
[2023-02-10 12:32] LABS: IRON,FE 71 ug/dL (50-170); PERCENT FE SATURATION 24 % (20-55); TOTAL IRON BINDING CAPACITY 301 ug/dL (100-400); TRANSFERRIN 241 mg/dL (202-364)
[2023-02-10] MEDS: predniSONE 20 MG Tab PO SCH (16:31)
[2023-02-11] MEDS: Heparin Sodium 5,000 Units/ML Vial SUBCUT SCH ×3 (00:56→16:30)
[2023-02-11] MEDS: predniSONE 20 MG Tab PO SCH ×2 (05:04→16:30)
[2023-02-11] MEDS: Albuterol/Ipratropium 3.0-0.5 MG/3 ML Neb Soln NEB SCH ×4 (05:36→21:01)
[2023-02-11 06:07] LABS: BASOPHILS ABSOLUTE AUTO 0.02 K/mm3 (0.01-0.08); BASOPHILS PERCENT AUTO 0.1 % (0.1-1.2); EOSINOPHILS PERCENT AUTO 0 (0.7-5.8); HEMATOCRIT 28.8 % (34.1-44.9); HEMOGLOBIN 8.2 gm/dl (11.2-15.7); IMMATURE GRAN ABSOLUTE AUTO 0.47 K/mm3 (0.00-0.10); IMMATURE GRAN PERCENT AUTO 3.4 % (<=1.0); LYMPHOCYTES ABSOLUTE AUTO 1.22 K/mm3 (1.18-3.74); LYMPHOCYTES PERCENT AUTO 8.8 % (19.3-51.7); MEAN CORPUSCULAR HEMOGLOBIN 27.9 pg (25.6-32.2); MEAN CORPUSCULAR HGB CONC 28.5 g/dl (32.2-35.5); MEAN PLATELET VOLUME 9.2 fl (9.4-12.3); MONOCYTES PERCENT AUTO 7.2 % (4.7-12.5); NEUTROPHILS ABSOLUTE AUTO 11.11 K/mm3 (1.56-6.13); NEUTROPHILS PERCENT AUTO 80.5 % (34.0-71.1); PLATELET COUNT,PLT 368 K/mm3 (182-369); RED BLOOD CELL COUNT 2.94 M/mm3 (3.98-5.22); WHITE BLOOD CELL COUNT,WBC 13.82 K/mm3 (3.98-10.04)
[2023-02-11 06:34] LABS: ANION GAP 4.2 (5-15); CALCIUM 8.7 mg/dL (8.5-10.1); CREATININE 0.3 mg/dL (0.55-1.02); EST CRCL DRUG DOSING (CG) 151.81 mL/min; POTASSIUM,K 4.2 mEq/L (3.5-5.1)
[2023-02-11] MEDS: HYDROmorphone 0.5 MG/0.5 ML Syringe IVPUSH PRN (07:34)
[2023-02-11 08:00] LABS: SLIDE REVIEW ABNORMAL SMEAR
[2023-02-11 08:13] LABS: APPEARANCE,URINE SLT CLOUDY (Clear); BILIRUBIN,URINE NEGATIVE (Negative); COLOR,URINE YELLOW (Yellow); GLUCOSE,URINE NEGATIVE (Negative); KETONES,URINE NEGATIVE (Negative); LEUKOCYTE ESTERASE,URINE NEGATIVE (Negative); NITRITE,URINE NEGATIVE (Negative); OCCULT BLOOD,URINE NEGATIVE (Negative); PH,URINE 8.5 (5.0-8.0); PROTEIN,URINE 1+ (Negative); UROBILINOGEN,URINE 0.2 (0.2-1.0)
[2023-02-11 08:33] LABS: AMORPHOUS SEDIMENT,URINE MANY /hpf (NOT SEEN); BACTERIA,URINE MANY /hpf (FEW); MUCUS,URINE NOT SEEN /hpf (FEW); RBC,URINE 0-5 /hpf (0-5); WBC,URINE 0-5 /hpf (0-5)
[2023-02-11] MEDS: FORMOTEROL INH SCH ×2 (09:01→21:01)
[2023-02-11] MEDS: GLYCOPYR INH SCH ×2 (09:01→21:01)
[2023-02-11] MEDS: BUDESONIDE INH SCH ×2 (09:01→21:01)
[2023-02-11] MEDS: Nicotine 21 MG/24 Hr Patch TRDERM SCH (09:42)
[2023-02-11] MEDS: Sertraline 50 MG Tab PO SCH (09:43)
[2023-02-11] MEDS: Lidocaine 4% 1 each Patch TOP SCH (09:43)
[2023-02-11] MEDS: Rosuvastatin 10 MG Tab PO SCH (09:44)
[2023-02-11] MEDS: Acetaminophen/HYDROcodone 325-10 MG Tab PO PRN ×2 (09:44→20:30)
[2023-02-11] MEDS: Famotidine 20 MG Tab PO SCH (09:44)
[2023-02-11] MEDS: Multivitamin Tab PO SCH (09:44)
[2023-02-11] MEDS: Roflumilast [Daliresp] 500 MCG Tablet ** PATIENT'S OWN MED PO SCH (09:44)
[2023-02-11] MEDS: Furosemide 20 MG Tab PO SCH (09:44)
[2023-02-12] MEDS: Heparin Sodium 5,000 Units/ML Vial SUBCUT SCH ×2 (00:38→09:53)
[2023-02-12] MEDS: Acetaminophen/HYDROcodone 325-10 MG Tab PO PRN ×3 (02:52→15:40)
[2023-02-12] MEDS: Albuterol/Ipratropium 3.0-0.5 MG/3 ML Neb Soln NEB SCH ×2 (05:54→09:27)
[2023-02-12 06:11] LABS: BASOPHILS ABSOLUTE AUTO 0.02 K/mm3 (0.01-0.08); BASOPHILS PERCENT AUTO 0.1 % (0.1-1.2); EOSINOPHILS PERCENT AUTO 0 (0.7-5.8); HEMATOCRIT 30.9 % (34.1-44.9); IMMATURE GRAN ABSOLUTE AUTO 0.46 K/mm3 (0.00-0.10); IMMATURE GRAN PERCENT AUTO 3.1 % (<=1.0); LYMPHOCYTES ABSOLUTE AUTO 1.37 K/mm3 (1.18-3.74); LYMPHOCYTES PERCENT AUTO 9.4 % (19.3-51.7); MEAN CORPUSCULAR HEMOGLOBIN 28.4 pg (25.6-32.2); MEAN CORPUSCULAR HGB CONC 29.1 g/dl (32.2-35.5); MEAN CORPUSCULAR VOLUME 97.5 fl (79.4-94.8); MEAN PLATELET VOLUME 9.1 fl (9.4-12.3); MONOCYTES PERCENT AUTO 8.9 % (4.7-12.5); NEUTROPHILS ABSOLUTE AUTO 11.46 K/mm3 (1.56-6.13); NEUTROPHILS PERCENT AUTO 78.5 % (34.0-71.1); PLATELET COUNT,PLT 424 K/mm3 (182-369); RED BLOOD CELL COUNT 3.17 M/mm3 (3.98-5.22); WHITE BLOOD CELL COUNT,WBC 14.61 K/mm3 (3.98-10.04)
[2023-02-12 06:27] LABS: A/G RATIO 0.8 (1-2); ALBUMIN 2.7 g/dl (3.4-5.0); ANION GAP 7.2 (5-15); BILIRUBIN TOTAL 0.5 mg/dL (0.2-1.0); CALCIUM 8.7 mg/dL (8.5-10.1); CREATININE 0.4 mg/dL (0.55-1.02); EST CRCL DRUG DOSING (CG) 113.85 mL/min; MAGNESIUM 1.9 mg/dL (1.8-2.4); POTASSIUM,K 4.2 mEq/L (3.5-5.1); PROTEIN TOTAL,TP 5.9 g/dl (6.4-8.2)
[2023-02-12] MEDS: predniSONE 20 MG Tab PO SCH (08:12)
[2023-02-12] MEDS: GLYCOPYR INH SCH (09:27)
[2023-02-12] MEDS: FORMOTEROL INH SCH (09:27)
[2023-02-12] MEDS: BUDESONIDE INH SCH (09:27)
[2023-02-12] MEDS: Rosuvastatin 10 MG Tab PO SCH (09:52)
[2023-02-12] MEDS: Multivitamin Tab PO SCH (09:52)
[2023-02-12] MEDS: Sertraline 50 MG Tab PO SCH (09:52)
[2023-02-12] MEDS: Lidocaine 4% 1 each Patch TOP SCH (09:53)
[2023-02-12] MEDS: Nicotine 21 MG/24 Hr Patch TRDERM SCH (09:53)
[2023-02-12] MEDS: Furosemide 20 MG Tab PO SCH (09:53)
[2023-02-12] MEDS: Famotidine 20 MG Tab PO SCH (09:53)
[2023-02-12] MEDS: Roflumilast [Daliresp] 500 MCG Tablet ** PATIENT'S OWN MED PO SCH (09:56)
== END 2023-02-12 15:53 | disposition home or self-care (01) | DRG 480 ==
LOC: JD.ED 19:40 → JD.ICU 02-04 06:41
PROVIDERS: ADMIT Internal Medicine; ATTEND Internal Medicine
PROC: 0QS604Z Reposition Right Upper Femur with Internal Fixation Device, Open Approach (ICD-10-PCS; principal; 2023-02-05)
DX: S52.124A Nondisplaced fracture of head of right radius, initial encounter for closed fracture (principal); J96.21 Acute and chronic respiratory failure with hypoxia; S72.141A Displaced intertrochanteric fracture of right femur, initial encounter for closed fracture; J96.22 Acute and chronic respiratory failure with hypercapnia; J90 Pleural effusion, not elsewhere classified; J44.1 Chronic obstructive pulmonary disease with (acute) exacerbation; E87.20 Acidosis, unspecified; F17.210 Nicotine dependence, cigarettes, uncomplicated; E78.5 Hyperlipidemia, unspecified; G89.29 Other chronic pain; I25.10 Atherosclerotic heart disease of native coronary artery without angina pectoris; M54.9 Dorsalgia, unspecified; M15.9 Polyosteoarthritis, unspecified; F41.9 Anxiety disorder, unspecified; F32.A Depression, unspecified; I50.9 Heart failure, unspecified; G62.9 Polyneuropathy, unspecified; W18.30XA Fall on same level, unspecified, initial encounter; Y92.89 Other specified places as the place of occurrence of the external cause; Z79.82 Long term (current) use of aspirin; Z79.899 Other long term (current) drug therapy; Z88.6 Allergy status to analgesic agent; Z88.0 Allergy status to penicillin; Z90.710 Acquired absence of both cervix and uterus; Z98.890 Other specified postprocedural states; Z85.3 Personal history of malignant neoplasm of breast
CPT/HCPCS: 01210; 36415; 71045; 71045-26; 73080-26-RT; 73080-RT; 73502-26-RT; 73502-RT; 73552-26-RT; 73552-RT; 76000; 76000-26; 80048; 80053; 80306; 81001; 82272; 83540; 83735; 83880; 84466; 85014; 85018; 85025; 85610; 85730; 86140; 86850; 86900; 86901; 93005; 93010; 94640; 96361; 96374; 96375; 97110-GP; 97116-GP; 97162-GP; 97166-GO; 97530-GO; 97530-GP; 99223; 99232; 99233; 99238; 99284-25; 99285; A9270-GY; C1713; C1776; J0690; J1100; J1170; J1644; J1720; J1940; J2250; J2370; J2405; J2704; J3010; J3490; J7030; J7050; J7512; J7620-GY

== ENCOUNTER 2023-02-23 11:59 | Inpatient (IN) | payer MEDICARE ==
[2023-02-23] MEDS ORDERED: Sodium Chloride 0.9% 1,000 ML IV STA (13:25)
[2023-02-23 13:54] LABS: BASOPHILS ABSOLUTE AUTO 0.02 K/mm3 (0.01-0.08); BASOPHILS PERCENT AUTO 0.2 % (0.1-1.2); EOSINOPHILS ABSOLUTE AUTO 0.09 K/mm3 (0.04-0.36); EOSINOPHILS PERCENT AUTO 0.7 (0.7-5.8); HEMATOCRIT 36.3 % (34.1-44.9); HEMOGLOBIN 9.9 gm/dl (11.2-15.7); IMMATURE GRAN ABSOLUTE AUTO 0.09 K/mm3 (0.00-0.10); IMMATURE GRAN PERCENT AUTO 0.7 % (<=1.0); LYMPHOCYTES ABSOLUTE AUTO 1.84 K/mm3 (1.18-3.74); LYMPHOCYTES PERCENT AUTO 15.2 % (19.3-51.7); MEAN CORPUSCULAR HEMOGLOBIN 28.4 pg (25.6-32.2); MEAN CORPUSCULAR HGB CONC 27.3 g/dl (32.2-35.5); MEAN PLATELET VOLUME 7.9 fl (9.4-12.3); MONOCYTES PERCENT AUTO 8.3 % (4.7-12.5); NEUTROPHILS ABSOLUTE AUTO 9.08 K/mm3 (1.56-6.13); NEUTROPHILS PERCENT AUTO 74.9 % (34.0-71.1); PLATELET COUNT,PLT 350 K/mm3 (182-369); RED BLOOD CELL COUNT 3.49 M/mm3 (3.98-5.22); WHITE BLOOD CELL COUNT,WBC 12.12 K/mm3 (3.98-10.04)
[2023-02-23 14:19] LABS: A/G RATIO 0.7 (1-2); ALBUMIN 2.9 g/dl (3.4-5.0); BILIRUBIN TOTAL 0.1 mg/dL (0.2-1.0); BUN/CREATININE RATIO 37.5 (14-18); CALCIUM 8.7 mg/dL (8.5-10.1); CREATININE 0.4 mg/dL (0.55-1.02); EST CRCL DRUG DOSING (CG) 92.77 mL/min; POTASSIUM,K 4.6 mEq/L (3.5-5.1); PROTEIN TOTAL,TP 6.8 g/dl (6.4-8.2)
[2023-02-23 14:42] LABS: SLIDE REVIEW ABNORMAL SMEAR
[2023-02-23 14:45] LABS: ANION GAP 1.6 (5-15)
[2023-02-23 14:59] LABS: APPEARANCE,URINE CLEAR (Clear); BILIRUBIN,URINE NEGATIVE (Negative); COLOR,URINE YELLOW (Yellow); GLUCOSE,URINE NEGATIVE (Negative); KETONES,URINE NEGATIVE (Negative); LEUKOCYTE ESTERASE,URINE NEGATIVE (Negative); NITRITE,URINE NEGATIVE (Negative); OCCULT BLOOD,URINE NEGATIVE (Negative); PROTEIN,URINE TRACE (Negative); UROBILINOGEN,URINE 0.2 (0.2-1.0)
[2023-02-23 15:09] LABS: BASE EXCESS ARTERIAL 17.5 (-2-2.0); BICARBONATE,ARTERIAL 48.1 meq/L (22.0-26.0); O2 SATURATION ARTERIAL 97.2 % (96.0-97.0)
[2023-02-23 15:11] LABS: PCO2 ARTERIAL 119.3 mmHg (35.0-45.0)
[2023-02-23 15:31] LABS: BACTERIA,URINE FEW /hpf (FEW); RBC,URINE 0-5 /hpf (0-5); SQUAMOUS EPITHELIAL CELLS,UR 0-5 /hpf (0-5); WBC,URINE 0-5 /hpf (0-5)
[2023-02-23 15:32] LABS: MUCUS,URINE FEW /hpf (FEW); YEAST BUDDING,URINE RARE (NOT SEEN)
[2023-02-23] MEDS ORDERED: Acetaminophen 325 MG Tab PO PRN (15:58)
[2023-02-23] MEDS ORDERED: Ondansetron 4 MG/2 ML SDV IV PRN (15:58)
[2023-02-23] MEDS: Albuterol/Ipratropium 3.0-0.5 MG/3 ML Neb Soln NEB SCH ×2 (16:33→20:30)
[2023-02-23] MEDS: Acetaminophen/HYDROcodone 325-10 MG Tab PO PRN (18:18)
[2023-02-24] MEDS: Albuterol/Ipratropium 3.0-0.5 MG/3 ML Neb Soln NEB SCH ×6 (00:19→19:57)
[2023-02-24 06:11] LABS: ANION GAP -0.1 (5-15); CALCIUM 8.7 mg/dL (8.5-10.1); CREATININE 0.3 mg/dL (0.55-1.02); EST CRCL DRUG DOSING (CG) 116.83 mL/min; POTASSIUM,K 3.9 mEq/L (3.5-5.1)
[2023-02-24 06:24] LABS: HEMATOCRIT 32.3 % (34.1-44.9); HEMOGLOBIN 8.8 gm/dl (11.2-15.7); MEAN CORPUSCULAR HEMOGLOBIN 28.4 pg (25.6-32.2); MEAN CORPUSCULAR HGB CONC 27.2 g/dl (32.2-35.5); MEAN CORPUSCULAR VOLUME 104.2 fl (79.4-94.8); MEAN PLATELET VOLUME 8.3 fl (9.4-12.3); PLATELET COUNT,PLT 311 K/mm3 (182-369); WHITE BLOOD CELL COUNT,WBC 11.05 K/mm3 (3.98-10.04)
[2023-02-24] MEDS: Acetaminophen/HYDROcodone 325-10 MG Tab PO PRN ×2 (07:42→18:13)
[2023-02-24 07:56] LABS: BASE EXCESS ARTERIAL 17.1 (-2-2.0); BICARBONATE,ARTERIAL 45.4 meq/L (22.0-26.0); O2 SATURATION ARTERIAL 85.5 % (96.0-97.0)
[2023-02-24 07:57] LABS: PCO2 ARTERIAL 87.9 mmHg (35.0-45.0)
[2023-02-24] MEDS: Rosuvastatin 10 MG Tab PO SCH (08:24)
[2023-02-24] MEDS: Sertraline 50 MG Tab PO SCH (08:24)
[2023-02-24] MEDS: Enoxaparin 40 MG/0.4 ML Syringe SUBCUT SCH (08:24)
[2023-02-24] MEDS ORDERED: predniSONE 20 MG Tab PO ONE (09:00)
[2023-02-24] MEDS ORDERED: Dexamethasone/Tobramycin 0.1-0.3% Ophth Susp 5 ML Bottle EYERT SCH (09:00)
[2023-02-24] MEDS ORDERED: Albuterol 0.042% 1.25 MG/3 ML Neb Soln NEB PRN (10:11)
[2023-02-24] MEDS ORDERED: Albuterol 0.083% 2.5 MG/3 ML Neb Soln NEB PRN (10:15)
[2023-02-24] MEDS: Doxycycline 100 MG in Sodium Chloride 0.9% 100 ML IV SCH ×2 (11:27→23:15)
[2023-02-24] MEDS ORDERED: Non-Formulary Medication 1 Each (Roflumilast [Daliresp] 250 MCG Tablet) PO SCH (11:30)
[2023-02-24] MEDS: Nicotine 21 MG/24 Hr Patch TRDERM SCH (13:43)
[2023-02-24] MEDS: predniSONE 20 MG Tab PO SCH (16:57)
[2023-02-25] MEDS: Albuterol/Ipratropium 3.0-0.5 MG/3 ML Neb Soln NEB SCH ×4 (00:13→11:37)
[2023-02-25] MEDS: Acetaminophen/HYDROcodone 325-10 MG Tab PO PRN (05:10)
[2023-02-25] MEDS: predniSONE 20 MG Tab PO SCH (05:11)
[2023-02-25 06:23] LABS: HEMATOCRIT 35.3 % (34.1-44.9); HEMOGLOBIN 10.2 gm/dl (11.2-15.7); MEAN CORPUSCULAR HEMOGLOBIN 28.8 pg (25.6-32.2); MEAN CORPUSCULAR HGB CONC 28.9 g/dl (32.2-35.5); MEAN CORPUSCULAR VOLUME 99.7 fl (79.4-94.8); MEAN PLATELET VOLUME 8.2 fl (9.4-12.3); PLATELET COUNT,PLT 297 K/mm3 (182-369); RED BLOOD CELL COUNT 3.54 M/mm3 (3.98-5.22); WHITE BLOOD CELL COUNT,WBC 10.47 K/mm3 (3.98-10.04)
[2023-02-25 06:32] LABS: CALCIUM 9.1 mg/dL (8.5-10.1); CREATININE 0.3 mg/dL (0.55-1.02); EST CRCL DRUG DOSING (CG) 150.09 mL/min
[2023-02-25] MEDS ORDERED: predniSONE 20 MG Tab PO SCH (07:00)
[2023-02-25 07:56] LABS: BASE EXCESS ARTERIAL 12.3 (-2-2.0); BICARBONATE,ARTERIAL 39.9 meq/L (22.0-26.0); O2 SATURATION ARTERIAL 90.7 % (96.0-97.0)
[2023-02-25 07:57] LABS: PCO2 ARTERIAL 74.5 mmHg (35.0-45.0)
[2023-02-25] MEDS: Enoxaparin 40 MG/0.4 ML Syringe SUBCUT SCH (08:33)
[2023-02-25] MEDS: Nicotine 21 MG/24 Hr Patch TRDERM SCH (08:33)
[2023-02-25] MEDS: Sertraline 50 MG Tab PO SCH (08:33)
[2023-02-25] MEDS: Rosuvastatin 10 MG Tab PO SCH (08:33)
[2023-02-25] MEDS: Doxycycline 100 MG in Sodium Chloride 0.9% 100 ML IV SCH (11:47)
[2023-02-26] MEDS ORDERED: Sertraline 50 MG Tab PO SCH (09:00)
== END 2023-02-25 14:30 | disposition home or self-care (01) | DRG 189 ==
LOC: JD.ED 11:59 → JD.MS 15:56
PROVIDERS: ADMIT Internal Medicine; ATTEND Internal Medicine
PROC: 5A09357 Assistance with Respiratory Ventilation, Less than 24 Consecutive Hours, Continuous Positive Airway Pressure (ICD-10-PCS; principal; 2023-02-23)
DX: J96.21 Acute and chronic respiratory failure with hypoxia (principal); E43 Unspecified severe protein-calorie malnutrition; J44.1 Chronic obstructive pulmonary disease with (acute) exacerbation; Z68.1 Body mass index [BMI] 19.9 or less, adult; E78.00 Pure hypercholesterolemia, unspecified; G62.9 Polyneuropathy, unspecified; Z79.82 Long term (current) use of aspirin; E87.3 Alkalosis; J96.22 Acute and chronic respiratory failure with hypercapnia; F41.9 Anxiety disorder, unspecified; M15.9 Polyosteoarthritis, unspecified; I25.10 Atherosclerotic heart disease of native coronary artery without angina pectoris; F17.200 Nicotine dependence, unspecified, uncomplicated; D63.8 Anemia in other chronic diseases classified elsewhere; G89.29 Other chronic pain; E78.5 Hyperlipidemia, unspecified; M54.9 Dorsalgia, unspecified; F32.89 Other specified depressive episodes; Z96.698 Presence of other orthopedic joint implants; Z85.3 Personal history of malignant neoplasm of breast; Z98.890 Other specified postprocedural states; Z99.81 Dependence on supplemental oxygen; Z87.81 Personal history of (healed) traumatic fracture; Z88.0 Allergy status to penicillin; Z88.1 Allergy status to other antibiotic agents; Z88.8 Allergy status to other drugs, medicaments and biological substances; Z79.899 Other long term (current) drug therapy; Z87.01 Personal history of pneumonia (recurrent); Z90.710 Acquired absence of both cervix and uterus
CPT/HCPCS: 36415; 36600; 71046; 80053; 81001; 82803; 85025; 94660; J7030; 80048; 82947; 85027; 94640; 94761; 97116-GP; 97162-GP; 97530-GP; 99285; A9270-GY; J1650; J3490; J7512; J7620-GY

== ENCOUNTER 2023-05-30 04:28 | Emergency (ER) | payer MEDICARE ==
[2023-05-30] MEDS ORDERED: Albuterol/Ipratropium 3.0-0.5 MG/3 ML Neb Soln NEB ONE (04:36)
[2023-05-30] MEDS ORDERED: Adenosine 12 MG/4 ML SDV ONE ×2 (04:45→05:20)
[2023-05-30] MEDS ORDERED: Adenosine 6 MG/2 ML SDV ONE (04:45)
[2023-05-30 04:46] LABS: BASOPHILS ABSOLUTE AUTO 0.1 K/mm3 (0.0-0.2); BASOPHILS PERCENT AUTO 0.2 % (0.0-1.0); HEMATOCRIT 47.7 % (37.0-47.0); IMMATURE GRAN ABSOLUTE AUTO 0.35 K/mm3 (0.00-0.05); IMMATURE GRAN PERCENT AUTO 1.7 % (0.0-0.4); LYMPHOCYTES ABSOLUTE AUTO 2.2 K/mm3 (1.0-4.8); LYMPHOCYTES PERCENT AUTO 10.7 % (24.0-44.0); MEAN CORPUSCULAR HEMOGLOBIN 27.1 pg (28.0-32.0); MEAN CORPUSCULAR HGB CONC 29.4 g/dl (32.0-36.0); MEAN CORPUSCULAR VOLUME 92.3 fl (83.0-99.0); MEAN PLATELET VOLUME 8.8 fl (9.4-12.3); MONOCYTES ABSOLUTE AUTO 0.9 K/mm3 (0.0-0.8); MONOCYTES PERCENT AUTO 4.4 % (0.0-8.0); NEUTROPHILS ABSOLUTE AUTO 17.1 K/mm3 (1.8-7.7); PLATELET COUNT,PLT 309 K/mm3 (150-400); RED BLOOD CELL COUNT 5.17 M/mm3 (4.10-5.30); WHITE BLOOD CELL COUNT,WBC 20.63 K/mm3 (3.9-11.3)
[2023-05-30] MEDS ORDERED: Adenosine 6 MG/2 ML SDV IVPUSH ONE ×2 (05:05→05:12)
[2023-05-30] MEDS ORDERED: Ondansetron 4 MG/2 ML SDV ONE (05:09)
[2023-05-30] MEDS ORDERED: Ondansetron 4 MG/2 ML SDV IVPUSH ONE (05:09)
[2023-05-30 05:17] LABS: A/G RATIO 0.7 (1-2); ALBUMIN 3.1 g/dl (3.4-5.0); ANION GAP 6.5 (5-15); BILIRUBIN TOTAL 0.4 mg/dL (0.2-1.0); BUN/CREATININE RATIO 36.7 (14-18); CALCIUM 9.3 mg/dL (8.5-10.1); CREATININE 0.6 mg/dL (0.55-1.02); EST CRCL DRUG DOSING (CG) 75.97 mL/min; POTASSIUM,K 4.5 mEq/L (3.5-5.1); PROTEIN TOTAL,TP 7.5 g/dl (6.4-8.2)
[2023-05-30 05:19] LABS: MAGNESIUM 2.2 mg/dL (1.8-2.4)
[2023-05-30] MEDS ORDERED: Adenosine 12 MG/4 ML SDV IVPUSH ONE (05:23)
[2023-05-30] MEDS ORDERED: Furosemide 20 MG/2 ML VIAL ONE (05:24)
[2023-05-30] MEDS ORDERED: Furosemide 20 MG/2 ML VIAL IVPUSH ONE (05:28)
[2023-05-30] MEDS ORDERED: fentaNYL 100 MCG/2 ML SDV ONE (05:43)
[2023-05-30] MEDS ORDERED: fentaNYL 100 MCG/2 ML SDV IVPUSH ONE (05:45)
[2023-05-30] MEDS ORDERED: Norepinephrine 4 MG/4 ML SDV ONE (05:54)
[2023-05-30] MEDS ORDERED: Norepinephrine 4 MG in Dextrose 5% in Water 246 ML IV SCH ×2 (06:00)
[2023-05-30 06:25] LABS: BASE EXCESS ARTERIAL 17.1 (-2-2.0); BICARBONATE,ARTERIAL 48.3 meq/L (22.0-26.0); O2 SATURATION ARTERIAL 76.3 % (96.0-97.0)
[2023-05-30 06:28] LABS: BICARBONATE,ARTERIAL 46.1 meq/L (22.0-26.0); O2 SATURATION ARTERIAL 99.5 % (96.0-97.0); PCO2 ARTERIAL 112.6 mmHg (35.0-45.0)
[2023-05-30 06:29] LABS: BASE EXCESS ARTERIAL 14.4 (-2-2.0)
[2023-05-30] MEDS ORDERED: Diltiazem 125 MG in Sodium Chloride 0.9% 100 ML IV SCH (06:30)
[2023-05-30 07:26] LABS: BASE EXCESS ARTERIAL 14.5 (-2-2.0); BICARBONATE,ARTERIAL 45.6 meq/L (22.0-26.0); O2 SATURATION ARTERIAL 92.6 % (96.0-97.0); PCO2 ARTERIAL 100.9 mmHg (35.0-45.0)
[2023-05-30 07:38] LABS: APPEARANCE,URINE CLEAR (Clear); BILIRUBIN,URINE NEGATIVE (Negative); COLOR,URINE YELLOW (Yellow); GLUCOSE,URINE 2+ (Negative); KETONES,URINE TRACE (Negative); LEUKOCYTE ESTERASE,URINE NEGATIVE (Negative); NITRITE,URINE NEGATIVE (Negative); OCCULT BLOOD,URINE NEGATIVE (Negative); PH,URINE 5.5 (5.0-8.0); PROTEIN,URINE 2+ (Negative); UROBILINOGEN,URINE 0.2 (0.2-1.0)
[2023-05-30 07:54] LABS: CORONAVIRUS COVID-19 NAA NEGATIVE (NEGATIVE); INFLUENZA A NAA NEGATIVE (NEGATIVE); RESPIRATORY SYNCYTIAL VIR NAA NEGATIVE (NEGATIVE)
[2023-05-30 07:56] LABS: BACTERIA,URINE RARE /hpf (FEW); EPITHELIAL CELLS,URINE 0-5 /hpf (0-5); MUCUS,URINE NOT SEEN /hpf (FEW); RBC,URINE 0-5 /hpf (0-5); WBC,URINE 0-5 /hpf (0-5)
== END 2023-05-30 08:28 ==
LOC: JD.ED 04:28
DX: J96.22 Acute and chronic respiratory failure with hypercapnia (principal); I47.1 Supraventricular tachycardia; E78.00 Pure hypercholesterolemia, unspecified; J44.9 Chronic obstructive pulmonary disease, unspecified; Z79.899 Other long term (current) drug therapy; Z88.0 Allergy status to penicillin; Z88.6 Allergy status to analgesic agent; Z88.1 Allergy status to other antibiotic agents; Z20.822 Contact with and (suspected) exposure to COVID-19
CPT/HCPCS: 0241U; 36415; 36600; 51702; 71045; 80053; 81001; 82803; 83605; 83690; 83735; 83880; 84484; 85025; 92960; 94640; 94660; 96365; 96368; 96375; 99291; 99292; J0153; J1940; J2405; J3010; J3490; J7060; 93010; J7620-GY